=== PATIENT | male | born 1970 | race Caucasian/White ===

== ENCOUNTER → 2018-06-25 10:12 | Outpatient (CLI) | payer BC, SELFPAY | PROVIDERS: Family Provider Family Medicine; PCP Family Medicine; Referring Provider Chiropractor; Visit Provider Chiropractor | DX: M99.02 Segmental and somatic dysfunction of thoracic region (principal); M99.03 Segmental and somatic dysfunction of lumbar region; M99.01 Segmental and somatic dysfunction of cervical region | CPT/HCPCS: 72100 ==

== ENCOUNTER → 2019-08-02 20:56 | Outpatient (CLI) | payer BC, SELFPAY ==
[2019-05-06 11:13] VITALS: BMI 34.9
== END ==
PROVIDERS: Family Provider Internal Medicine; PCP Internal Medicine; Referring Provider Internal Medicine; Visit Provider Internal Medicine
DX: G47.33 Obstructive sleep apnea (adult) (pediatric) (principal)
CPT/HCPCS: 95811

== ENCOUNTER → 2019-09-03 15:12 | Outpatient (CLI) | payer BC, SELFPAY ==
[2019-05-06 11:13] VITALS: BMI 34.9
== END ==
PROVIDERS: Family Provider Internal Medicine; PCP Internal Medicine; Referring Provider Internal Medicine; Visit Provider Internal Medicine
DX: Z46.89 Encounter for fitting and adjustment of other specified devices (principal)

== ENCOUNTER → 2024-04-24 | Outpatient (CLI) | payer BC, SELFPAY ==
[2024-04-24 09:32] LABS: Absolute Lymphocyte Count 2.18 X10^3/uL (0.83-4.51); Absolute Neutrophil Count 4.3 X10^3/uL (2.0-7.7); Basophil# 0.05 X10^3/uL; Basophil% 0.7 % (0-1); Eosinophil# 0.08 X10^3/uL; Eosinophils% 1.1 % (0-5); Hematocrit 47.5 % (40-54); Hemoglobin 15.7 g/dL (13.0-16.5); Lymphocyte # 2.18 X10^3/ul (0.83-4.51); Mean Corp Hgb Conc 33.1 g/dL (32-36); Mean Corpuscular Hgb 30.5 pg (27.0-32.0); Mean Corpuscular Volume 92.2 fL (80-94); Mean Platelet Vol. 10.7 fl (6.2-12.0); Monocyte# 0.45 X10^3/uL; Monocyte% 6.4 % (0-10); NRBC Flagged by Analyzer 0 % (0-5); Neutrophil # 4.25 X10^3/uL (2.7-7.7); Neutrophil % 60.5 % (47-70); Platelet Count 185 K/mm3 (150-450); RBC Distribution Width SD 43.8 fl (35.1-43.9); Red Blood Count 5.15 M/mm3 (4.6-6.2)
[2024-04-24 10:23] LABS: Hemoglobin A1c 5.4 % (3.8-5.6)
[2024-04-24 10:36] LABS: ALB/GLOB Ratio 1.1 RATIO (0.9-2.4); AST(SGOT) 24 U/L (15-37); Alanine Aminotransfer ALT/SGPT 46 U/L (16-61); Alkaline Phosphatase 58 U/L (45-117); Anion Gap 6 (5-15); BUN 19 mg/dL (7-18); BUN/Creat Ratio 21.2 RATIO (10-20); Calcium,Total 9.4 mg/dL (8.5-10.1); Chloride 109 mmol/L (98-107); Cholesterol 193 mg/dL (200); EST Glomerular Filtration Rate 94 mL/min (>60); Est Glom Filt Rate - Afr Amer 113 mL/min (>60); Globulin 3.6 g/dL (2.2-4.2); Glucose 108 mg/dL (74-106); High Density Lipoprotein 36 mg/dL; PSA,Total - Annual Screen 0.37 ng/mL (0.00-4.00); Potassium 4.3 mmol/L (3.5-5.1); Protein, Total 7.6 g/dL (6.4-8.2); Sodium Level 141 mmol/L (136-145); Thyroid Stim Hormone (TSH) 2.53 uIU/mL (0.358-3.74); Triglycerides 146 mg/dL; Very Low Density Lipoprotein 29 mg/dL (5-40)
[2024-04-26 08:02] LABS: Vitamin D,25 Hydroxy 58.4 ng/mL
== END | disposition home or self-care (01) ==
LOC: LAB 08:21
PROVIDERS: PCP Internal Medicine; Referring Provider Family Medicine; Visit Provider Family Medicine
DX: Z00.00 Encounter for general adult medical examination without abnormal findings (principal); E66.9 Obesity, unspecified; Z13.220 Encounter for screening for lipoid disorders; Z13.1 Encounter for screening for diabetes mellitus; Z12.5 Encounter for screening for malignant neoplasm of prostate; Z98.890 Other specified postprocedural states
CPT/HCPCS: 36415; 80053; 80061; 82306; 83036; 84153; 84443; 85025; G0103

== ENCOUNTER → 2025-06-25 | Outpatient (CLI) | payer BC, SELFPAY ==
--- OUTSIDE RECORDS SUMMARY | 2025-06-25 08:48 | XMS RPT_ITS | CCD ---
Author Organization [facility] Care Team Providers Care Parts Representative Name Role Phone KIET CHIU Attending Unavailable KIET CHIU Primary Care Unavailable KIET CHIU Admitting Unavailable Kiet Venegas MD Primary Care Provider RED BASURTO Referring UnavailRED Castro Attending UnavailKiet Gross MD Primary Care Provider [phone] Kiet Venegas MD Primary Care Provider INGE DYSON Referring Unavailab le KIET VENEGAS Primary Care Unavailable ARTIE VELEZ Attending Unavailable ARTIE VELEZ Referring Unavailable KIET VENEGAS Primary Care Unavailable ARTIE VELEZ Attending Unavailable PICKENSALEXYS Wright Referring Unavailable TRACY, KIET Bailey Primary Care Unavailable SANTA CH Referring Unavailable ARTIE VELEZ Attending Unavailable TRACY, KIET Bailey Primary Care Unavailable ROSIE, ARTIE Attending Unavailable ALEXYS PICKENS Referring Unavailable KIET VENEGAS Primary Care Unavailable ARTIE VELEZ Attending Unavailable KIET VENEGAS Referring Unavailable TRACY, KIET Bailey Primary Care Unavailable TRACY, KIET Bailey Primary Care Unavailable ROSIE, ARTIE Attending Unavailable KIET VENEGAS Referring Unavailable TRACY, KIET Bailey Primary Care Unavailable ROSIE, ARTIE Attending Unavailable KIET VENEGAS Referring Unavailable SANTA CH Referring Unavailable ROSIE, ARTIE Attending Unavailable KIET VENEGAS Primary Care Unavailable ROSIE, ARTIE Referring Unavailable ROSIE, ARTIE Attending Unavailable TRACY, KIET Bailey Primary Care Unavailable ROSIE, ARTIE Referring Unavailable ROSIE, ARTIE Attending Unavailable TRACY, KIET Bailey Primary Care Unavailable ROSIE, ARTIE Referring Unavailable ROSIE, ARTIE Attending Unavailable TRACY, KIET Bailey Primary Care Unavailable TRACY, KIET Bailey Primary Care Unavailable KIET VENEGAS Attending Unavailable Unavailable Primary Care Provider UnavailSONIA Umana Attending Unavailable SONIA CHAN Referring Unavailable ADRIAN, LAO Referring Unavailable Huong Higginson Referring Unavailable Cullen iHggins Attending Unavailable Yessica Light Primary Care Unavailable Kiet Venegas MD Primary Care Provider Lynsey DOUBLING MACHINE OPERATOR.NURSING HOME SOCIAL WORKER, Janelle Unavailable Dylanbeverly DOUBLING MACHINE OPERATOR.NURSING HOME SOCIAL WORKER, Rita A Unavailable SELF Referring Unavailable KIET VENEGAS Primary Care Unavailable GOLDY ZAFAR Attending Unavailable GOLDY ZAFAR Referring Unavailable KIET VENEGAS Primary Care Unavailable Edudaliamer DOUBLING MACHINE OPERATOR-NURSING HOME SOCIAL WORKER, Margaret Unavailable 1( [phone] Santa Ch MD Unavailable Kiet Venegas MD Unavailable Allergies Allergy Classification Reported Allergen(s) Allergy Type Date of Onset Reaction(s) Facility (15 sources) Dust; Translations: [DUST] Propensity to adverse reactions 5 Intolerance [facility] Work Phone: (15 sources) Grass pollen; Translations: [GRASS POLLEN] Propensity to adverse reactions 5 Intolerance [facility] Work Phone: (15 sources) Mold Extract; Translations: [MOLD] Drug Allergy 5 Intolerance [facility] Work Phone: (15 sources) Pollen; Translations: [POLLEN] Propensity to adverse reactions 5 Intolerance [facility] Work Phone: (15 sources) Tree; Translations: [TREES] Propensity to adverse reactions 5 Intolerance [facility] Work Phone: (11 sources) animal dander [Other] Propensity to adverse reactions 5 Intolerance [facility] Work Phone: (1 source) OTHER; Translations: [OTHER] Propensity to adverse reactions (disorder) 5 [facility] (3 sources) Animal Dander; Translations: [ANIMAL DANDER] Drug Allergy 5 Intolerance [facility] (1 source) Environmental allergy Allergy to substance (disorder) 2 Pony Zero. Medications Current Medications Medication Drug Class(es) Dates Sig (Normalized) Sig (Original) [id number] 200 actuat albuterol 0.09 mg/actuat metered dose inhaler (2 sources) beta2-Adrenergic Agonist Start: 10-12-2024 End: 10-22-2024 take 2 puff(s) by inhalation every four hours as needed for wheezing albuterol HFA (PROVENTIL HFA, VENTOLIN HFA) 90 mcg/actuation inhaler Indications: Cough with fever , URI, acute Inhale 2 Puffs as instructed every 4 hours as needed for wheezing/shortnes s of breath for up to 10 days. 1 Each 10/12/2024 10/22/2024 Active Ascorbic Acid (13 sources) Vitamin C ascorbic acid (VITAMIN C ORAL) Take by mouth. Active ascorbic acid (V ITAMIN C ORAL) Take by mouth. 0 Active Comment on above: Take by mouth. azithromycin 250 mg oral tablet (1 source) Macrolide Antimicrobial Start: 10-12-19 End: 10-17-19 take 2 tablets by mouth once daily, then take 1 tablet by mouth once daily azithromycin (ZITHROMAX) 250 mg tablet Indications: Cough with fever , URI, acute Take 2 tablets by mouth once daily for 1 day, THEN 1 tablet once daily for 4 days. 6 tablet 10/12/2024 10/17/2024 Active benzonatate 100 mg oral capsule (1 source) Non-narcotic Antitussive Start: 10-12-19 End: 10-19-19 take 1-2 capsules by mouth three times daily as needed for cough benzonatate (TESSALON PERLES) 100 mg capsule Indications: Cough with fever , URI, acute Take 1-2 capsules by mouth three times a day as needed for cough for up to 7 days. 42 capsule 10/12/2024 10/19/2024 Active BIPAP (13 sources) BIPAP Active BIPAP brompheniramine maleate 0.4 mg/ml / dextromethorphan hydrobromide 2 mg/ml / pseudoephedrine hydrochloride 6 mg/ml oral solution (1 source) alpha-Adrenergic Agonist, Uncompetitive P-vkatpq-K-aspartate Receptor Antagonist, Sigma-1 Agonist Start: 10-12-2024 End: 10-19-2024 take 5 mL by mouth four times daily as needed Bjzejmlxruqbrxw-Vfhbfajrv-BK (BROMFED DM) 2-30-10 mg/5 mL syrup Indications: Cough with fever , URI, acute Take 5 mL by mouth four times a day as needed for up to 7 days. 118 mL 10/12/2024 10/19/2024 Active Cholecalciferol (14 sources) Vitamin D take 2 tablets by mouth once daily Vitamin D3 125 mcg (5,000 unit) tablet Take 2 tablet by mouth once a day active [facility] take 1 tablet by mouth once [place] cholecalciferol (VITAMIN D) 1,000 unit tab tablet Take 1,000 Units by mouth once daily. Active Comment on above: Take 1,000 Units by mouth once daily. diazePAM 5 mg oral tablet (1 source) Benzodiazepine Start: 06-08-2025 End: 06-09-2025 Valium 5 mg tablet Take 1 tablet by mouth single dose as directed bring medication with you on the day of your procedure, staff will instruct you when to take the tablet. Thank you active - Margaret Jeffries DOUBLING MACHINE OPERATOR-NURSING HOME SOCIAL WORKER, [address] [facility] [address] Radiculopathy lumbar region [facility] [place] ibuprofen 200 mg oral capsule (1 source) Nonsteroidal Anti-inflammatory Drug ibuprofen 200 mg capsule Take 2 capsule twice a day as needed for pain active [facility] Lactobacillus acidophilus (13 sources) Lactobacillus acidophilus (PROBIOTIC ORAL) Take by mouth. Active Lactobacillus ac idophilus (PROBIOTIC ORAL) Take by mouth. 0 Active Comment on above: Take by mouth. lidocaine hydrochloride 20 mg/ml mucous membrane topical solution (2 sources) Antiarrhythmic, Amide Local Anesthetic Start: lidocaine viscous (XYLOCAINE) 2 % solution TAKE 5 ML TWO TIMES DAILY NEEDED 08/10/2024 Active Magnesium (13 sources) take 1 tablet by mouth once daily Magnesium 250 mg tab Take 250 mg by mouth once daily. Active take 1 tablet by mouth once [place] Magnesium 250 mg tab Take 250 mg by mouth once daily. 0 Active Comment on above: Take 250 mg by mouth once daily. magnesium oxide 250 mg oral tablet (1 source) take 1 tablet by mouth once daily magnesium 250 mg (as magnesium oxide) tablet Take 1 tablet by mouth once a day active [facility] meloxicam 15 mg oral tablet (3 sources) Nonsteroidal Anti-inflammatory Drug Start: 10-02-19 25 meloxicam (MOBIC) 15 mg tablet 10/02/2024 Active predniSONE 10 mg oral tablet (1 source) Start: 10-12-19 25 predniSONE (DELTASONE) 10 mg tablet Indications: Cough with fever , URI, acute Take 6 tablets on day 1, take 5 tablets on day 2, take 4 tablets on day 3, take 3 tablets on day 4, take 2 tablets on day 5, take 1 tablet on day 6. 21 tablet 10/12/2024 Active Probiotic Acidophilus (lactobacillus acidophilus) capsule (1 source) take 1 capsule by mouth once daily Probiotic Acidophilus (lactobacillus acidophilus) capsule Take 1 capsule by mouth once a day active [facility] RA VITAMIN C/KRISTIE HIPS (ASCORBIC ACID) 1000 MG TABS (1 source) take 1 tablet by mouth once daily Vitamin C 1,000 mg tablet Take 1 tablet by mouth once a day active [facility] SEMAGLUTIDE-WEIGHT MANAGEMENT (1 source) Wegovy 1 mg/0.5 mL subcutaneous pen injector Inject 1 pen injector subcutaneously once a week active Julissa Mota LPN [facility] [place] MIKAELA'S WORT ORAL (13 sources) MIKAELA'S WORT ORAL Take by mouth. Active MIKAELA'S WORT ORAL Take by mouth. 0 Active Comment on above: Take by mouth. VITAMIN B-12 (CYANOCOBALAMIN) 1000 MCG TABS (1 source) take 1 tablet by mouth once daily cyanocobalamin (vit B-12) 1,000 mcg tablet Take 1 tablet by mouth once a day active [facility] ZEPBOUND 2.5 mg/0.5 mL pen injector (2 sources) Start: 10-02-2024 ZEPBOUND 2.5 mg/0.5 mL pen injector INJECT 0.5 ML UNDER SKIN WEEKLY 10/02/2024 Active Zinc (14 sources) take 1 tablet by mouth once daily zinc 50 mg tablet Take 1 tablet by mouth once a day active [facility] take 1 tablet by mouth once [place] Zinc 50 mg tab Take 50 mg by mouth once daily. Active take 1 tablet by mouth once [place] Zinc 50 mg tab Take 50 mg by mouth once daily. 0 Active Comment on above: Take 50 mg by mouth once daily. Completed/Discontinued Medications Medication Drug Class(es) Dates Sig (Normalized) Sig (Original) 2 ml midazolam 1 mg/ml injection (1 source) Benzodiazepine Start: 05-13-2024 End: 05-13-2024 IntraVENous, As needed, Starting on Barbie 05/13/24 at 1214, Anesthesia Intraprocedure sertraline 50 mg oral tablet (1 source) Serotonin Reuptake Inhibitor Start: 11-30-2021 End: 02-07-2022 take 1 tablet by mouth once daily sertraline (ZOLOFT) 50 mg tablet Indications: Anxiety with depression Take 1 tablet by mouth once daily. 30 tablet 2 11/30/2021 02/07/2022 Discontinued (Other) Comment on above: Take 1 tablet by mouth once daily. 1000 ml sodium chloride 9 mg/ml injection (3 sources) Start: 05-13-2024 End: 05-14-2024 take 50 mL intravenously every hour 50 mL/hr, IntraVENous, Continuous, Starting on Barbie 05/13/24 at 1000, Preprocedure Problems Active Problems Problem Classification Problem Date Documented Date Episodic/Chronic Disorders of lipid metabolism (13 sources) Mixed hyperlipidemia; Translations: [Mixed hyperlipidemia] Onset: 09-27-2019 09-27-2019 Chronic Fever of unknown origin (1 source) Fever, unspecified; Translations: [Cough with fever] Onset: 10-12-2024 Episodic Immunizations and screening for infectious disease (5 sources) Encounter for observation for suspected exposure to other biological agents ruled out; Translations: [Viral screening status] Onset: 09-07-2020 Episodic Osteoarthritis (18 sources) Arthritis of joint of left shoulder region; Translations: [Primary osteoarthritis, left shoulder] Onset: 10-03-2021 10-03-2021 Chronic Other congenital anomalies (4 sources) Congenital anomaly of spine; Translations: [Other congenital malformations of spine, not associated with scoliosis] Onset: 05-13-2024 05-13-2024 Chronic Other congenital anomalies (1 source) Other congenital malformations of spine, not associated with scoliosis; Translations: [Other congenital malformations of spine, not associated with scoliosis] Onset: 05-13-2024 Chronic Other congenital anomalies (1 source) Spinal stenosis of lumbar region; Translations: [Other congenital malformations of spine, not associated with scoliosis] Onset: 04-30-2022 04-30-2022 Chronic Other lower respiratory disease (2 sources) Cough with fever; Translations: [Cough with fever] 10-12-2024 Episodic Other nervous system disorders (1 source) Tremor; Translations: [Tremor, unspecified] Episodic Other non-traumatic joint disorders (13 sources) Loose body in joint of left shoulder region; Translations: [Loose body in left shoulder] Onset: 10-03-2021 10-03-2021 Chronic Other nutritional; endocrine; and metabolic disorders (13 sources) Obese class II; Translations: [Obesity, unspecified] Onset: 09-27-2019 09-27-2019 Chronic Other nutritional; endocrine; and metabolic disorders (1 source) Obesity, unspecified; Translations: [Obesity, unspecified] Onset: 05-26-2024 Chronic Other upper respiratory infections (2 sources) Acute upper respiratory infection; Translations: [Acute upper respiratory infection, unspecified] Onset: 10-12-2024 10-12-2024 Episodic Residual codes; unclassified (14 sources) Obstructive sleep apnea syndrome; Translations: [Obstructive sleep apnea (adult) (pediatric)] Onset: 02-07-2022 Chronic Spondylosis; intervertebral disc disorders; other back problems (2 sources) Lumbar spondylosis; Translations: [Spondylosis without myelopathy or radiculopathy, lumbar region] Onset: 02-06-2022 02-06-2022 Chronic Spondylosis; intervertebral disc disorders; other back problems (20 sources) Lumbar radiculopathy; Translations: [Radiculopathy, lumbar region] Onset: 09-27-2019 Resolved: 02-07-2022 Episodic Unclassified (1 source) Cough with fever; Translations: [Cough with fever] Onset: 10-12-2024 Past or Other Problems Problem Classification Problem Date Documented Da te Episodic/Chronic Contraceptive and procreative management (15 sources) Patient encounter status; Translations: [Encounter for sterilization] Onset: 08-04-2006 08-04-2006 Episodic Gastrointestinal hemorrhage (2 sources) Hematochezia; Translations: [Melena] Onset: 12-16-2008 Resolved: 02-07-2022 02-07-2022 Episodic Joint disorders and dislocations; trauma-related (13 sources) Tear of medial meniscus of knee; Translations: [Tear of medial cartilage or meniscus of knee, current] Onset: 01-27-2013 01-27-2013 Episodic Nonspecific chest pain (1 source) Other chest pain; Translations: [Other chest pain] Onset: 01-30-2022 Episodic Other acquired deformities (1 source) Lumbar spondylolisthesis; Translations: [Spondylolisthesis, lumbar region] Onset: 04-30-2022 04-30-2022 Episodic Other bone disease and musculoskeletal deformities (18 sources) Chondromalacia of left shoulder; Translations: [Chondromalacia, left shoulder] Onset: 10-03-2021 10-03-2021 Episodic Other connective tissue disease (13 sources) Impingement syndrome of left shoulder region; Translations: [Impingement syndrome of left shoulder] Onset: 10-03-2021 10-03-2021 Episodic Other connective tissue disease (1 source) Trochanteric bursitis; Translations: [Trochanteric bursitis, right hip] Onset: 02-06-2022 02-06-2022 Episodic Other non-traumatic joint disorders (2 sources) Pain in lower limb; Translations: [Pain in unspecified knee] Onset: 01-27-2013 Resolved: 02-07-2022 02-07-2022 Episodic Other skin disorders (2 sources) Sebaceous cyst of skin; Translations: [Sebaceous cyst] Onset: 08-26-2005 Resolved: 02-07-2022 02-07-2022 Episodic Skin and subcutaneous tissue infections (4 sources) Cellulitis and abscess of trunk; Translations: [Cellulitis of trunk, unspecified] Onset: 04-07-2008 Resolved: 02-07-2022 02-07-2022 Episodic Sprains and strains (18 sources) Injury of superior glenoid labrum of shoulder joint; Translations: [Superior glenoid labrum lesion of left shoulder, initial encounter] Onset: 12-23-2006 Resolved: 02-07-2022 10-03-2021 Episodic Results Test Name Value Interpretation Reference Range Facility Relevant diagnostic tests/la boratory data Narrativeon 06-08-2025 Fall risk assessment no FRAN [employer] Work Phone: MEDS REVIEW Done [employer] Work Phone: MEDS REVIEWD Medications reviewed with changes [employer] Work Phone: CNOVon 10-12-2024 CNOV Office Visit ([facility] ) GLADYS ALBA ([id number]) 1970 M Date Time Provider Department 10/12/24 6:30 PM GOLDY ZAFAR [facility] During your visit today, we recorded the following information about you: Temperature Pulse Respiration Blood pressure 98.9 degrees 84/minute 19/minute 141/85 Weight 142.4 kg Goldy Zafar, DOUBLING MACHINE OPERATOR.NURSING HOME SOCIAL WORKER 10/12/2024 7:17 PM Addendum Gladys Alba is a 54 year old male who presents with Flu Like Symptoms (Very bad cough chest congestion wheezing - Entered by patient), Cough, Chest Congestion, Wheezing (X4days all symptoms/), and Short Of Breath Started Friday worsened over the weekend. Including , fevers, chills, congestion and cough. Feels winded with minimal exertion. Taking mucinex DM and Ibuprofen Flu Like Symptoms Associated symptoms include chills, congestion, coughing, a fever, headaches, myalgias and a sore throat. Cough Associated symptoms include chills, headaches, sore throat, myalgias, shortness of breath and wheezing. Wheezing Associated symptoms include chills, coughing, a fever, headaches, shortness of breath and a sore throat. Short Of Breath Associated symptoms include chills, congestion, coughing, a fever, headaches, myalgias and a sore throat. 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 cholecalciferol (VITAMIN D) 1,000 unit tab tablet Take 1,000 Units by mouth once daily. Magnesium 250 mg tab Take 250 mg by mouth once daily. MIKAELA'S WORT ORAL Take by mouth. ascorbic acid (VITAMIN C ORAL) Take by mouth. Lactobacillus acidophilus (PROBIOTIC ORAL) Take by mouth. BIPAP No current facility-administered medications for this visit. Social History Tobacco Use Smoking status: Never Smokeless tobacco: Never Vaping Use Vaping status: Never Used Substance Use Topics Alcohol use: Yes Comment: occ Drug use: No Alcohol Use: Yes (occ) Tobacco Use: Never FAMILY HISTORY Problem Relation Age of Onset Hypertension Mother Hyperlipidemia Mother Diabetes Father Heart Father CHF Cancer Father Bladder Colon Cancer Maternal Grandmother Colon Cancer Maternal Uncle No Known Problems Half-sister No Known Problems Half-brother No Known Problems Half-brother No Known Problems Daughter No Known Problems Daughter No Known Problems Son No Known Problems Son No Known Problems Son Review of Systems Constitutional: Positive for chills, fever and malaise/fatigue. HENT: Positive for congestion and sore throat. Respiratory: Positive for cough, chest tightness, shortness of breath and wheezing. Cardiovascular: Negative. Gastrointestinal: Negative. Musculoskeletal: Positive for myalgias. Neurological: Positive for headaches. All other systems reviewed and are negative. BP 141/85 Pulse 84 Temp (Src) 98.9 (Temporal) Resp 19 Wt 314 lb (142.4kg) SpO2 97% Physical Exam Vitals and nursing note reviewed. Constitutional: Appearance: Normal appearance. He is not ill-appearing. HENT: Right Ear: Tympanic membrane is retracted. Left Ear: Tympanic membrane is retracted. Nose: Congestion and rhinorrhea present. Mouth/Throat: Mouth: Mucous membranes are moist. Pharynx: Oropharynx is clear. Posterior oropharyngeal erythema present. No oropharyngeal exudate. Eyes: Extraocular Movements: Extraocular movements intact. Conjunctiva/sclera: Conjunctivae normal. Pupils: Pupils are equal, round, and reactive to light. Cardiovascular: Rate and Rhythm: Normal rate and regular rhythm. Pulmonary: Effort: Pulmonary effort is normal. No respiratory distress. Breath sounds: No stridor. Rhonchi present. No wheezing or rales. Chest: Chest wall: No tenderness. Abdominal: General: Abdomen is flat. Musculoskeletal: General: Normal range of motion. Lymphadenopathy: Cervical: Cervical adenopathy present. Skin: General: Skin is warm and dry. Neurological: General: No focal deficit present. Mental Status: He is alert and oriented to person, place, and time. ASSESSMENT/PLAN (more content not included)... Normal [facility] XR CHEST 2V FRONTAL/LATon XR CHEST 2V FRONTAL/LAT * * *Final Report* * * DATE OF EXAM: Oct 12 2024 7:24PM [id number] [id number] - XR CHEST 2V FRONTAL/LAT / PROCEDURE REASON: multiple diagnoses * * * * Physician Interpretation * * * * EXAMINATION: CHEST RADIOGRAPH (2 VIEW FRONTAL and LATERAL) CLINICAL HISTORY: Cough with fever Cough with fever MQ: [id number] EXAM DATE/TIME: 10/12/2024 7:24 PM COMPARISON: 12/04/2021 RESULT: Lines, tubes, and devices: None. Lungs and pleura: The costophrenic angles are clear. No acute infiltrates or congestion is seen. Cardiomediastinal silhouette: The heart and mediastinum show no acute abnormalities. Bones and soft tissues: There are no acute osseous abnormalities. IMPRESSION: No acute abnormalities. Linux Devops Engineer: URIEL Transcribe Date/Time: Oct 13 2024 9:48A Dictated by : KIET ASHLEY MD This examination was interpreted and the report reviewed and electronically signed by: KIET ASHLEY MD on Oct 13 2024 9:48AM EST [id number] N Normal [facility] MR Lumbar spine WO contrasto n 08-26-2024 1. Multilevel degenerative changes, see level by level detail above. Edematous marrow endplate changes as described. Multilevel foraminal stenosis. Congenital spinal canal narrowing without superimposed spinal stenosis. Small disc protrusion at L5-S1, left paramedian, superimposed on disc bulge which could be contacting the left S1 nerve root before it exits the thecal sac. Report Dictated on Electronically Signed By: Gladys Romero MD Electronically Signed Date/Time: 05/17/2024 6:43 PM [employer] [facility] Patient Name: GLADYS ALBA : 1970 Exam Date/Time: 05/13/2024 12:36 Procedure: MR LUMBAR SPINE WO CONTRAST Ordering Provider: CHAN MADELINE Reason For Exam: Q76.49 MRI OF THE LUMBAR SPINE WITHOUT GADOLINIUM CLINICAL INDICATION: Q76.49 TECHNIQUE: Routine MRI of the lumbar spine without gadolinium. COMPARISON: None FINDINGS: Vertebral bodies are normal in height and alignment. Large lower endplate Schmorl's node at L3. Scattered smaller Schmorl's nodes at L4 and L5. Some edematous marrow noted around L5 lower endplate Schmorl's node. Some edematous endplate changes at L3-L4. Normal appearance of the conus medullaris. Spinal canal is narrow on a congenital basis. Visualized portions of the abdominal aorta are nonaneurysmal. L1-L2: Mild facet arthrosis and very mild disc bulge. No foraminal stenosis. No superimposed spinal stenosis. L2-L3: Mild facet arthrosis. Mild endplate spurring and mild disc bulge. No foraminal stenosis. No superimposed spinal stenosis. L3-L4: Mild facet arthrosis. Six moderate disc bulge with some endplate spurring. No significant foraminal stenosis. No superimposed spinal stenosis. L4-L5: Mild disc bulge and facet arthritic changes. Mild foraminal narrowing bilaterally, worse on the left. No superimposed spinal stenosis. L5-S1: Disc space narrowing and disc desiccation. Moderate facet arthrosis. Moderate foraminal narrowing on the left. Mild foraminal narrowing on the right. No superimposed spinal stenosis. Mild disc bulge with small superimposed left paramedian focal disc protrusion which could be contacting the left S1 nerve root just before it exits the thecal sac. [facility] Gladys Romero MD - 05/17/2024 [facility] 1970 [id number] Exam Date/Time: 05/13/2024 12:36 Procedure: MR LUMBAR SPINE WO CONTRAST Ordering Provider: CHAN MADELINE Reason For Exam: Q76.49 MRI OF THE LUMBAR SPINE WITHOUT GADOLINIUM CLINICAL INDICATION: Q76.49 TECHNIQUE: Routine MRI of the lumbar spine without gadolinium. COMPARISON: None FINDINGS: Vertebral bodies are normal in height and alignment. Large lower endplate Schmorl's node at L3. Scattered smaller Schmorl's nodes at L4 and L5. Some edematous marrow noted around L5 lower endplate Schmorl's node. Some edematous endplate changes at L3-L4. Normal appearance of the conus medullaris. Spinal canal is narrow on a congenital basis. Visualized portions of the abdominal aorta are nonaneurysmal. L1-L2: Mild facet arthrosis and very mild disc bulge. No foraminal stenosis. No superimposed spinal stenosis. L2-L3: Mild facet arthrosis. Mild endplate spurring and mild disc bulge. No foraminal stenosis. No superimposed spinal stenosis. L3-L4: Mild facet arthrosis. Six moderate disc bulge with some endplate spurring. No significant foraminal stenosis. No superimposed spinal stenosis. L4-L5: Mild disc bulge and facet arthritic changes. Mild foraminal narrowing bilaterally, worse on the left. No superimposed spinal stenosis. L5-S1: Disc space narrowing and disc desiccation. Moderate facet arthrosis. Moderate foraminal narrowing on the left. Mild foraminal narrowing on the right. No superimposed spinal stenosis. Mild disc bulge with small superimposed left paramedian focal disc protrusion which could be contacting the left S1 nerve root just before it exits the thecal sac. IMPRESSION: 1. Multilevel degenerative changes, see level by level detail above. Edematous marrow endplate changes as described. Multilevel foraminal stenosis. Congenital spinal canal narrowing without superimposed spinal stenosis. Small disc protrusion at L5-S1, left paramedian, superimposed on disc bulge which could be contacting the left S1 nerve root before it exits the thecal sac. Report Dictated on Electronically Signed By: Gladys Romero MD Electronically Signed Date/Time: 05/17/2024 6:43 PM EDT [facility] MR Lumbar spine WO contrastO rdered By: Gladys Romero on 05-17-2024 [facility] Work Phone: ECG 12-LEADon 05-16-2024 ECG 12-LEAD IMPRESSION: Sinus bradycardia Electronically Signed On 05-16-2024 17:05:23 EDT by Nat Salguero [facility] BASIC METABOLIC PANELon 04-23 Anion gap [Moles/Vol] 9 mmol/L Normal 3-13 [facility] Comment on above: Performed By: #### L AB15 #### Therapy Technician: ANUSHA JERNIGAN ([id number]) [facility]) [address] [place] [address] Calcium [Mass/Vol] 9.6 mg/dL Normal 8.4-10.4 [facility] Comment on above: Performed By: #### L AB15 #### Therapy Technician: ANUSHA JERNIGAN ([id number]) [facility]) [address] [place] [address] Chloride [Moles/Vol] 104 mmol/L Normal 98-107 [facility] Comment on above: Performed By: #### L AB15 #### Therapy Technician: ANUSHA JERNIGAN ([id number]) [facility]) [address] [place] [address] CO2 [Moles/Vol] 24 mmol/L Normal 22-30 [facility] Comment on above: Performed By: #### L AB15 #### Therapy Technician: ANUSHA JERNIGAN ([phone]) [facility]) [address] [place] [address] Creatinine [Mass/Vol] 0.80 mg/dL Normal 0.66-1.25 [facility] Comment on above: Performed By: #### L AB15 #### Therapy Technician: ANUSHA JERNIGAN ([id number]) [facility]) [address] [place] [address] GLOMERULAR FILTRATION RATE ML/MIN/1.73 SQ M.PREDICTED >90.0 Normal >60.0 [facility] Comment on above: Result Comment: Calc ulation based on the Chronic Kidney Disease Epidemiology Collaboration (CKD-EPI) equation refit without adjustment for race ORDER COMMENTS: Slightly Hemolyzed. Interpret POTASSIUM with caution. Performed By: #### L AB15 #### Therapy Technician: ANUSHA JERNIGAN ([id number]) [facility] [address] [place] [address] Glucose [Mass/Vol] 105 mg/dL High 70-100 [facility] Comment on above: Performed By: #### L AB15 #### Therapy Technician: ANUSHA JERNIGAN ([phone]) [facility]) [address] [place] [address] Potassium [Moles/Vol] 4.8 mmol/L Normal 3.5-5.1 [facility] Comment on above: Performed By: #### L AB15 #### Therapy Technician: ANUSHA JERNIGAN ([id number]) [facility] ([facility]) [address] [place] [address] Sodium [Moles/Vol] 138 mmol/L Normal 135-145 [facility] Comment on above: Performed By: #### L AB15 #### Therapy Technician: ANUSHA JERNIGAN ([id number]) [facility]) [address] [place] [address] Urea nitrogen [Mass/Vol] 19 mg/dL Normal 9-20 [facility] Comment on above: Performed By: #### L AB15 #### Therapy Technician: ANUSHA JERNIGAN ([id number]) [facility]) [address] [place] [address] Basic metabolic 1998 panelon 05-13-2024 Anion gap [Moles/Vol] 9 mmol/L 3 - 13 mmol/L [facility] Calcium [Mass/Vol] 9.6 mg/dL 8.4 - 10. 4 mg/dL [facility] Chloride [Moles/Vol] 104 mmol/L 98 - 10 7 mmol/L [facility] CO2 [Moles/Vol] 24 mmol/L 22 - 30 mmol/L [facility] Creatinine [Mass/Vol] 0.80 mg/dL 0.66 - 1.25 mg/dL [facility] GFR/1.73 sq M.predicted (S/P/Bld) [Vol rate/Area] - PINF [facility] Comment on above: Calculation based on the Chronic Kidney Disease Epidemiology Collaboration (CKD-EPI) equation refit without adjustment for race Glucose [Mass/Vol] 105 mg/dL High 70 - 100 mg/dL [facility] Interpretation and review of laboratory results Abnormal [facility] Potassium [Moles/Vol] 4.8 mmol/L 3.5 - 5.1 mmol/L [facility] Sodium [Moles/Vol] 138 mmol/L 135 - 145 mmol/L [facility] Urea nitrogen [Mass/Vol] 19 mg/dL 9 - 20 mg/dL [facility] Slightly Hemolyzed. Interpret POTASSIUM with caution. [facility] MR Lumbar spine WO contrasto n 05-13-2024 Radiology Study observation (narrative) [facility] Nursing Noteon 05-13-2024 Nursing Note Patient ambulated to bathroom and voided. Tolerated well. Discharge instructions reviewed no further questions at this time. Normal [facility] Nursing Note Patient's at bedside. Normal [facility] 36on 05-04-2024 36 Pt's Linsey called saying the patient has been called for jury duty the same day at his sedated MRI, which is 05/13/2024. She state they were told he needs documentation that this complex test is order & scheduled. Pt's will also going to be calling your office requesting this. The phone number for medical records for [facility] is [phone] if you need any additional information Thank you Normal [facility] Vitamin D,25 Hydroxyon 04-26 Vitamin D 25-OH 58.4 ng/mL Normal [facility] Comment on above: Order Comment: Order Date: 04/22/24 Order Info: [id number] - VITD25 Result Comment: Alexandra min D 25(OH) Status Range Deficiency <20 ng/mL (50nmol/L) Insufficiency 20 - 30 ng/mL (50 - 75 nmol/L) Sufficiency 30 - 100 ng/mL (75 - 250 nmol/L) Toxicity >100 ng/mL (>250 nmol/L) Performed By: #### L 500.4050, L500.4100, L501.9520, L506.1000, L501.9910, L501.9985, L100.0100 #### [facility] [address] [place], [address] CBC W/Diff, Automatedon 08-0 3-4 Absolute Lymph 2.18 X10 3/uL Normal 0.83-4.51 [facility] Comment on above: Order Comment: Order Date: 04/22/24 Order Info: [id number] - CBCD Performed By: #### L 500.4050, L500.4100, L501.9520, L506.1000, L501.9910, L501.9985, L100.0100 #### [facility] [address] [place], [address] Absolute Neut 4.3 X10 3/uL Normal 2.0-7.7 [facility] Comment on above: Order Comment: Order Date: 04/22/24 Order Info: [id number] - CBCD Performed By: #### L 500.4050, L500.4100, L501.9520, L506.1000, L501.9910, L501.9985, L100.0100 #### [facility] [address] [place], [address] Basophils/100 WBC (Bld) 0.7 % Normal 0-1 [facility] Comment on above: Order Comment: Order Date: 04/22/24 Order Info: 0184-1 - CBCD Performed By: #### L 500.4050, L500.4100, L501.9520, L506.1000, L501.9910, L501.9985, L100.0100 #### [facility] [address] [place], [address] Eosinophils/100 WBC (Bld) 1.1 % Normal 0-5 [facility] Comment on above: Order Comment: Order Date: 04/22/24 Order Info: 0184-1 - CBCD Performed By: #### L 500.4050, L500.4100, L501.9520, L506.1000, L501.9910, L501.9985, L100.0100 #### [facility] [address] [place], [address] Erythrocyte distribution width (RBC) [Ratio] 13.0 % Normal 11.6-14.6 [facility] Comment on above: Order Comment: Order Date: 04/22/24 Order Info: 0184-1 - CBCD Performed By: #### L 500.4050, L500.4100, L501.9520, L506.1000, L501.9910, L501.9985, L100.0100 #### [facility] [address], [address] Hematocrit (Bld) [Volume fraction] 47.5 % Normal 40-54 [facility] Comment on above: Order Comment: Order Date: 04/22/24 Order Info: 0184-1 - CBCD Performed By: #### L 500.4050, L500.4100, L501.9520, L506.1000, L501.9910, L501.9985, L100.0100 #### [facility] [address] [place], [address] Hemoglobin (Bld) [Mass/Vol] 15.7 g/dL Normal 13.0-16.5 [facility] Comment on above: Order Comment: Order Date: 04/22/24 Order Info: 0184-1 - CBCD Performed By: #### L 500.4050, L500.4100, L501.9520, L506.1000, L501.9910, L501.9985, L100.0100 #### [facility] [address] [place], [place], [id number] IG% 0.300 Normal 0.0-0.9 [facility] Comment on above: Order Comment: Order Date: 04/22/24 Order Info: 0184-1 - CBCD Result Comment: IG% - Immature Granulocytes (promyelocytes, myelocytes and metamyelocytes) > 1% indicates that a LEFT SHIFT is Present. Performed By: #### L 500.4050, L500.4100, L501.9520, L506.1000, L501.9910, L501.9985, L100.0100 #### [facility] [address] [place], [address] Lymphocytes/100 WBC (Bld) 31.0 % Normal 19-41 [facility] Comment on above: Order Comment: Order Date: 04/22/24 Order Info: 0184-1 - CBCD Performed By: #### L 500.4050, L500.4100, L501.9520, L506.1000, L501.9910, L501.9985, L100.0100 #### [facility] [address] [facility] [place], [place], [id number] MCH (RBC) [Entitic mass] 30.5 pg Normal 27.0-32.0 [facility] Comment on above: Order Comment: Order Date: 04/22/24 Order Info: 0184-1 - CBCD Performed By: #### L 500.4050, L500.4100, L501.9520, L506.1000, L501.9910, L501.9985, L100.0100 #### [facility] [address] [place], [address] MCHC (RBC) [Mass/Vol] 33.1 g/dL Normal 32-36 [facility] Comment on above: Order Comment: Order Date: 04/22/24 Order Info: 0184-1 - CBCD Performed By: #### L 500.4050, L500.4100, L501.9520, L506.1000, L501.9910, L501.9985, L100.0100 #### [facility] [address] [place], [address] MCV (RBC) [Entitic vol] 92.2 fL Normal 80-94 [facility] Comment on above: Order Comment: Order Date: 04/22/24 Order Info: 0184-1 - CBCD Performed By: #### L 500.4050, L500.4100, L501.9520, L506.1000, L501.9910, L501.9985, L100.0100 #### [facility] [address] [place], [address] Monocytes/100 WBC (Bld) 6.4 % Normal 0-10 [facility] Comment on above: Order Comment: Order Date: 04/22/24 Order Info: 0184- - CBCD Performed By: #### L 500.4050, L500.4100, L501.9520, L506.1000, L501.9910, L501.9985, L100.0100 #### [facility] [address], [address] Neutrophils/100 WBC (Bld) 60.5 % Normal 47-70 [facility] Comment on above: Order Comment: Order Date: 04/22/24 Order Info: 0184-1 - CBCD Performed By: #### L 500.4050, L500.4100, L501.9520, L506.1000, L501.9910, L501.9985, L100.0100 #### [facility] [address] [place], [address] Nucleated RBC (Bld) [#/Vol] 0 10*3/uL Normal 0-5 [facility] Comment on above: Order Comment: Order Date: 04/22/24 Order Info: 0184-1 - CBCD Performed By: #### L 500.4050, L500.4100, L501.9520, L506.1000, L501.9910, L501.9985, L100.0100 #### [facility] [address] [place], [address] Platelet mean volume (Bld) [Entitic vol] 10.7 fL Normal 6.2-12.0 [facility] Comment on above: Order Comment: Order Date: 04/22/24 Order Info: 0184-1 - CBCD Performed By: #### L 500.4050, L500.4100, L501.9520, L506.1000, L501.9910, L501.9985, L100.0100 #### [facility] [address] [place], [address] Platelets (Bld) [#/Vol] 185 10*3/uL Normal 150-450 [facility] Comment on above: Order Comment: Order Date: 04/22/24 Order Info: 0184-1 - CBCD Performed By: #### L 500.4050, L500.4100, L501.9520, L506.1000, L501.9910, L501.9985, L100.0100 #### [facility] [address] [place], [address] RBC (Bld) [#/Vol] 5.15 10*6/uL Normal 4.6-6.[address] [facility] Comment on above: Order Comment: Order Date: 04/22/24 Order Info: 0184-1 - CBCD Performed By: #### L 500.4050, L500.4100, L501.9520, L506.1000, L501.9910, L501.9985, L100.0100 #### [facility] [address] [place], [address] RDW SD 43.8 fl Normal 35.1-43.9 [facility] Comment on above: Order Comment: Order Date: 04/22/24 Order Info: 0184-1 - CBCD Performed By: #### L 500.4050, L500.4100, L501.9520, L506.1000, L501.9910, L501.9985, L100.0100 #### [facility] [address] [place], [place], [id number] WBC (Bld) [#/Vol] 7.0 10*3/uL Normal 4.4-11.0 [facility] Comment on above: Order Comment: Order Date: 04/22/24 Order Info: 0184-1 - CBCD Performed By: #### L 500.4050, L500.4100, L501.9520, L506.1000, L501.9910, L501.9985, L100.0100 #### [facility] [address] [place], [place], [id number] Comprehensive Metabolic Prof ilon 04-24-2024 Albumin [Mass/Vol] 4.0 g/dL Normal 3.2-5.0 [facility] Comment on above: Order Comment: Order Date: 04/22/24 Order Info: 0786-1 - CMP Order Info: [id number] - LIPID Order Info: [id number] - TSH Order Info: 2857-1 - PSA Performed By: #### L 500.4050, L500.4100, L501.9520, L506.1000, L501.9910, L501.9985, L100.0100 #### [facility] [address] [place], [place], [address] Albumin/Globulin [Mass ratio] 1.1 {ratio} Normal 0.9-2.4 [facility] Comment on above: Order Comment: Order Date: 04/22/24 Order Info: [id number] - CMP Order Info: [id number] - LIPID Order Info: [id number] - TSH Order Info: 2857-1 - PSA Performed By: #### L 500.4050, L500.4100, L501.9520, L506.1000, L501.9910, L501.9985, L100.0100 #### [facility] [address] [place], [address] ALK P 58 U/L Normal 45-117 [facility] Comment on above: Order Comment: Order Date: 04/22/24 Order Info: 07-1 - CMP Order Info: [id number] - LIPID Order Info: [id number] - TSH Order Info: 285-1 - PSA Performed By: #### L 500.4050, L500.4100, L501.9520, L506.1000, L501.9910, L501.9985, L100.0100 #### [facility] [address] [place], [address] ALT [Catalytic activity/Vol] 46 U/L Normal 16-61 [facility] Comment on above: Order Comment: Order Date: 04/22/24 Order Info: 785- - CMP Order Info: - LIPID Order Info: 3 - TSH Order Info: 2856-1 - PSA Performed By: #### L 500.4050, L500.4100, L501.9520, L506.1000, L501.9910, L501.9985, L100.0100 #### [facility] [address] [place], [address] AST [Catalytic activity/Vol] 24 U/L Normal 15-37 [facility] Comment on above: Order Comment: Order Date: 04/22/24 Order Info: 0786-1 - CMP Order Info: [id number] - LIPID Order Info: 3 - TSH Order Info: 2857-1 - PSA Performed By: #### L 500.4050, L500.4100, L501.9520, L506.1000, L501.9910, L501.9985, L100.0100 #### [facility] [address] [place], [address] Bilirubin [Mass/Vol] 0.50 mg/dL Normal 0.20-1.00 [facility] Comment on above: Order Comment: Order Date: 04/22/24 Order Info: 0786-1 - CMP Order Info: [id number] - LIPID Order Info: [id number] - TSH Order Info: 2856-09 - PSA Result Comment: For patients on eltrombopag therapy, use of Dimension Flanagan TBIL is not recommended. Performed By: #### L 500.4050, L500.4100, L501.9520, L506.1000, L501.9910, L501.9985, L100.0100 #### [facility] [address] [place], [address] BUN/CRE 21.2 RATIO High 10-20 [facility] Comment on above: Order Comment: Order Date: 04/22/24 Order Info: 86-1 - CMP Order Info: - LIPID Order Info: [id number] - TSH Order Info: [id number] - PSA Performed By: #### L 500.4050, L500.4100, L501.9520, L506.1000, L501.9910, L501.9985, L100.0100 #### [facility] [address] [place], [address] CA,Total 9.4 mg/dL Normal 8.5-10.1 [facility] Comment on above: Order Comment: Order Date: 04/22/24 Order Info: 785-09 - CMP Order Info: - LIPID Order Info: [id number] - TSH Order Info: [id number] - PSA Performed By: #### L 500.4050, L500.4100, L501.9520, L506.1000, L501.9910, L501.9985, L100.0100 #### [facility] [address] [place], [address] Chloride [Moles/Vol] 109 mmol/L High 98-107 [facility] Comment on above: Order Comment: Order Date: 04/22/24 Order Info: 86-1 - CMP Order Info: [id number] - LIPID Order Info: [id number] - TSH Order Info: 2856-09 - PSA Performed By: #### L 500.4050, L500.4100, L501.9520, L506.1000, L501.9910, L501.9985, L100.0100 #### [facility] [address] [place], [address] CO2 [Moles/Vol] 26.0 mmol/L Normal 21.0-32.0 [facility] Comment on above: Order Comment: Order Date: 04/22/24 Order Info: 785- - CMP Order Info: [id number] - LIPID Order Info: 3 - TSH Order Info: [id number] - PSA Performed By: #### L 500.4050, L500.4100, L501.9520, L506.1000, L501.9910, L501.9985, L100.0100 #### [facility] [address] [place], [address] Creatinine [Mass/Vol] 0.90 mg/dL Normal 0.70-1.30 [facility] Comment on above: Order Comment: Order Date: 04/22/24 Order Info: 785-09 - CMP Order Info: - LIPID Order Info: [id number] - TSH Order Info: [id number] - PSA Result Comment: The validity of the calculated GFR GFRAA in patients over 70 years has not been determined. Clinical correlation is essential. Performed By: #### L 500.4050, L500.4100, L501.9520, L506.1000, L501.9910, L501.9985, L100.0100 #### [facility] [address] [place], [address] EST GFR - AA 113 mL/min Normal >60 [facility] Comment on above: Order Comment: Order Date: 04/22/24 Order Info: 785-09 - CMP Order Info: [id number] - LIPID Order Info: 3 - TSH Order Info: 2857 - PSA Result Comment: Afri can Banglades[place] GFR Calc Performed By: #### L 500.4050, L500.4100, L501.9520, L506.1000, L501.9910, L501.9985, L100.0100 #### [facility] [address] [place], [place], [id number] GAP 6 Normal 5-15 [facility] Comment on above: Order Comment: Order Date: 04/22/24 Order Info: 785-09 - CMP Order Info: - LIPID Order Info: [id number] - TSH Order Info: [id number] - PSA Performed By: #### L 500.4050, L500.4100, L501.9520, L506.1000, L501.9910, L501.9985, L100.0100 #### [facility] [address] [place], [place], [address] GFR/1.73 sq M.predicted among non-blacks MDRD (S/P/Bld) [Vol rate/Area] 94 mL/min/{1.73_m2} Normal >60 [facility] Comment on above: Order Comment: Order Date: 04/22/24 Order Info: 785-09 - CMP Order Info: - LIPID Order Info: [id number] - TSH Order Info: [id number] - PSA Result Comment: Non- GFR Calc Performed By: #### L 500.4050, L500.4100, L501.9520, L506.1000, L501.9910, L501.9985, L100.0100 #### [facility] [address] [place], [place], [address] Globulin (S) [Mass/Vol] 3.6 g/dL Normal 2.2-4.2 [facility] Comment on above: Order Comment: Order Date: 04/22/24 Order Info: 785-09 - CMP Order Info: - LIPID Order Info: [id number] - TSH Order Info: [id number] - PSA Performed By: #### L 500.4050, L500.4100, L501.9520, L506.1000, L501.9910, L501.9985, L100.0100 #### [facility] [address] [place], [address] Glucose [Mass/Vol] 108 mg/dL High 74-106 [facility] Comment on above: Order Comment: Order Date: 04/22/24 Order Info: 785-1 - CMP Order Info: [id number] - LIPID Order Info: [id number] - TSH Order Info: [id number] - PSA Result Comment: Fast ing Glucose result from 100 to 125 mg/dL suggests IMPAIRED HOMEOSTASIS per A.D.A. criteria. Performed By: #### L 500.4050, L500.4100, L501.9520, L506.1000, L501.9910, L501.9985, L100.0100 #### [facility] [address] [place], [address] Potassium [Moles/Vol] 4.3 mmol/L Normal 3.5-5.1 [facility] Comment on above: Order Comment: Order Date: 04/22/24 Order Info: 785- - CMP Order Info: - LIPID Order Info: [id number] - TSH Order Info: [id number] - PSA Performed By: #### L 500.4050, L500.4100, L501.9520, L506.1000, L501.9910, L501.9985, L100.0100 #### [facility] [address] [place], [address] Sodium [Moles/Vol] 141 mmol/L Normal 136-145 [facility] Comment on above: Order Comment: Order Date: 04/22/24 Order Info: 785-09 - CMP Order Info: - LIPID Order Info: [id number] - TSH Order Info: [id number] - PSA Performed By: #### L 500.4050, L500.4100, L501.9520, L506.1000, L501.9910, L501.9985, L100.0100 #### [facility] [address] [place], [address] T PROT 7.6 g/dL Normal 6.4-8.2 [facility] Comment on above: Order Comment: Order Date: 04/22/24 Order Info: 0786-1 - CMP Order Info: [id number] - LIPID Order Info: 6-3 - TSH Order Info: 2857-1 - PSA Performed By: #### L 500.4050, L500.4100, L501.9520, L506.1000, L501.9910, L501.9985, L100.0100 #### [facility] [address] [place], [address] Urea nitrogen [Mass/Vol] 19 mg/dL High 7-18 [facility] Comment on above: Order Comment: Order Date: 04/22/24 Order Info: 0786-1 - CMP Order Info: [id number] - LIPID Order Info: [id number] - TSH Order Info: [id number] - PSA Performed By: #### L 500.4050, L500.4100, L501.9520, L506.1000, L501.9910, L501.9985, L100.0100 #### [facility] [address] [place], [address] Hemoglobin A1con 04-24-2024 HbA1c (Bld) [Mass fraction] 5.4 % Normal 3.8-5.6 [facility] Comment on above: Order Comment: Order Date: 04/22/24 Order Info: [id number] - A1C Result Comment: Norm al < 5.7 % Prediabetic 5.7 - 6.4 % Diabetic >or= 6.5 % Please note range changes. Performed By: #### L 500.4050, L500.4100, L501.9520, L506.1000, L501.9910, L501.9985, L100.0100 #### [facility] [address] [place], [address] Lipid Profileon 04-24-2024 Cholesterol [Mass/Vol] 193 mg/dL Normal 200 [facility] Comment on above: Order Comment: Order Date: 04/22/24 Order Info: [id number] - CMP Order Info: - LIPID Order Info: [id number] - TSH Order Info: 285-1 - PSA Result Comment: <200 mg/dL Desirable 200-240 mg/dL Borderline >240 mg/dL High Risk Performed By: #### L 500.4050, L500.4100, L501.9520, L506.1000, L501.9910, L501.9985, L100.0100 #### [facility] [address] [place], [address] Cholesterol in HDL [Mass/Vol] 36 mg/dL Low [facility] Comment on above: Order Comment: Order Date: 04/22/24 Order Info: [id number] - CMP Order Info: - LIPID Order Info: [id number] - TSH Order Info: [id number] - PSA Result Comment: The drugs N-Acetylcysteine and Metamizole may falsely depress this assay. Reference Range HDL <40 mg/dL Low HDL Cholesterol HDL >or= 60 mg/dL High HDL Cholesterol Performed By: #### L 500.4050, L500.4100, L501.9520, L506.1000, L501.9910, L501.9985, L100.0100 #### [facility] [address] [place], [address] Cholesterol in LDL [Mass/Vol] 128 mg/dL Normal 0-130 [facility] Comment on above: Order Comment: Order Date: 04/22/24 Order Info: [id number] - CMP Order Info: - LIPID Order Info: [id number] - TSH Order Info: [id number] - PSA Performed By: #### L 500.4050, L500.4100, L501.9520, L506.1000, L501.9910, L501.9985, L100.0100 #### [facility] [address] [place], [address] Cholesterol in VLDL [Mass/Vol] 29 mg/dL Normal 5-40 [facility] Comment on above: Order Comment: Order Date: 04/22/24 Order Info: [id number] - CMP Order Info: - LIPID Order Info: [id number] - TSH Order Info: [id number] - PSA Performed By: #### L 500.4050, L500.4100, L501.9520, L506.1000, L501.9910, L501.9985, L100.0100 #### [facility] [address] [place], [place], [address] (764) Triglyceride [Mass/Vol] 146 mg/dL Normal [facility] Comment on above: Order Comment: Order Date: 04/22/24 Order Info: [id number] - CMP Order Info: - LIPID Order Info: [id number] - TSH Order Info: [id number] - PSA Result Comment: The drugs N-Acetylcysteine and Metamizole may falsely depress this assay. Serum Triglycerides Reference Interval Normal <150 mg/dL Borderline high 150 - 199 mg/dL High 200 - 499 mg/dL Very High > or = 500 mg/dL Performed By: #### L 500.4050, L500.4100, L501.9520, L506.1000, L501.9910, L501.9985, L100.0100 #### [facility] [address] [place], [place], [address] (789) PSA,Total - Annual Screenon 04-24-2024 PSA,TOT SCREEN 0.37 ng/mL Normal 0.00-4.00 [facility] Comment on above: Order Comment: Order Date: 04/22/24 Order Info: [id number] - CMP Order Info: - LIPID Order Info: [id number] - TSH Order Info: [id number] - PSA Result Comment: This test was performed using the TPSA assay method for the app[employer]atIT chemistry system. Values obtained with different assay methods cannot be used interchangably. When changing PSA assays in the course of monitoring a patient, additional sequential testing should be carried out to confirm baseline values. Performed By: #### L 500.4050, L500.4100, L501.9520, L506.1000, L501.9910, L501.9985, L100.0100 #### [facility] [address] [place], [place], [address] Thyroid Stim Hormone (TSH)on 04-24-2024 TSH 2.53 uIU/mL Normal 0.358-3.74 [facility] Comment on above: Order Comment: Order Date: 04/22/24 Order Info: [id number] - CMP Order Info: [id number] - LIPID Order Info: [id number] - TSH Order Info: [id number] - PSA Performed By: #### L 500.4050, L500.4100, L501.9520, L506.1000, L501.9910, L501.9985, L100.0100 #### [facility] [address] [place], [address] CNTHERAPYon 11-12-2022 CNTHERAPY OT/PT/Speech Visit (PTWS) GLADYS ALBA ([id number]) 1970 M Date Time Provider Department 11/12/22 9:30 AM ARTIE VELEZ PTWS Date Time Provider Department Center 11/12/2022 9:30 AM [id number], COREY PTWS 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 - cholecalciferol (VITAMIN D) 1,000 unit tab tablet Take 1,000 Units by mouth once daily. - Magnesium 250 mg tab Take 250 mg by mouth once daily. - MIKAELA'S WORT ORAL Take by mouth. - ascorbic acid (VITAMIN C ORAL) Take by mouth. - Lactobacillus acidophilus (PROBIOTIC ORAL) Take by mouth. - BIPAP Normal 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 - cholecalciferol (VITAMIN D) 1,000 unit tab tablet Take 1,000 Units by mouth once daily. - Magnesium 250 mg tab Take 250 mg by mouth once daily. - MIKAELA'S WORT ORAL Take by mouth. - ascorbic acid (VITAMIN C ORAL) Take by mouth. - Lactobacillus acidophilus (PROBIOTIC ORAL) Take by mouth. - BIPAP Normal 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 - cholecalciferol (VITAMIN D) 1,000 unit tab tablet Take 1,000 Units by mouth once daily. - Magnesium 250 mg tab Take 250 mg by mouth once daily. - MIKAELA'S WORT ORAL Take by mouth. - ascorbic acid (VITAMIN C ORAL) Take by mouth. - Lactobacillus acidophilus (PROBIOTIC ORAL) Take by mouth. - BIPAP Normal 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 - cholecalciferol (VITAMIN D) 1,000 unit tab tablet Take 1,000 Units by mouth once daily. - Magnesium 250 mg tab Take 250 mg by mouth once daily. - MIKAELA'S WORT ORAL Take by mouth. - ascorbic acid (VITAMIN C ORAL) Take by mouth. - Lactobacillus acidophilus (PROBIOTIC ORAL) Take by mouth. - BIPAP Normal 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 - cholecalciferol (VITAMIN D) 1,000 unit tab tablet Take 1,000 Units by mouth once daily. - Magnesium 250 mg tab Take 250 mg by mouth once daily. - MIKAELA'S WORT ORAL Take by mouth. - ascorbic acid (VITAMIN C ORAL) Take by mouth. - Lactobacillus acidophilus (PROBIOTIC ORAL) Take by mouth. - BIPAP Normal [facility] CNTHERAPYon 09-17-2022 CNTHERAPY OT/PT/Speech Visit (PTWS) GLADYS ALBA ([id number]) 1970 M Date Time Provider Department 09/17/22 7:00 AM ARTIE VELEZ PTDIANA Date Time Provider Department [place] 09/17/2022 7:00 AM [id number], COREY PTWS Reza Montero Reason for Visit: Physical Therapy [503] Primary Visit Diagnosis:Superior glenoid labrum lesion of left shoulder, subsequent encounter [S46.907D] Other Visit Diagnoses:Arthritis of left shoulder region [M19.012] Strain of other muscles, fascia and tendons at shoulder and upper arm level, left arm, initial encounter [S41.309G] Allergies As of Date: 09/17/2022 Noted Allergy Reaction animal dander [Other] 08/21/2005 5 - Intolerance DUST 08/21/2005 5 - Intolerance GRASS POLLEN 08/21/2005 5 - Intolerance MOLD 08/21/2005 5 - Intolerance POLLEN 08/21/2005 5 - Intolerance TREES 08/21/2005 5 - Intolerance Date Reviewed: 02/07/2022 Reviewed by: Danii Sellers LPN - Fully Assessed Prescriptions as of 09/17/2022 - Zinc 50 mg tab Take 50 mg by mouth once daily. - cholecalciferol (VITAMIN D) 1,000 unit tab tablet Take 1,000 Units by mouth once daily. - Magnesium 250 mg tab Take 250 mg by mouth once daily. - MIKAELA'S WORT ORAL Take by mouth. - ascorbic acid (VITAMIN C ORAL) Take by mouth. - Lactobacillus acidophilus (PROBIOTIC ORAL) Take by mouth. - BIPAP Normal [facility] CNTHERAPYon 09-10-2022 CNTHERAPY OT/PT/Speech Visit (PTWS) GLADYS ALBA ([id number]) 1970 M Date Time Provider Department 09/10/22 4:30 PM ARTIE VELEZ PTDIANA Date Time Provider Department Center 09/10/2022 4:30 PM [id number], COREY PTWS Re[facility] Reason for Visit: PT Eval [747] Primary Visit Diagnosis:Superior glenoid labrum lesion of left shoulder, subsequent encounter [S48.432D] Allergies As of Date: 09/10/2022 Noted Allergy Reaction animal dander [Other] 08/21/2005 5 - Intolerance DUST 08/21/2005 5 - Intolerance GRASS POLLEN 08/21/2005 5 - Intolerance MOLD 08/21/2005 5 - Intolerance POLLEN 08/21/2005 5 - Intolerance TREES 08/21/2005 5 - Intolerance Date Reviewed: 02/07/2022 Reviewed by: Danii Sellers LPN - Fully Assessed Prescriptions as of 09/17/2022 - Zinc 50 mg tab Take 50 mg by mouth once daily. - cholecalciferol (VITAMIN D) 1,000 unit tab tablet Take 1,000 Units by mouth once daily. - Magnesium 250 mg tab Take 250 mg by mouth once daily. - MIKAELA'S WORT ORAL Take by mouth. - ascorbic acid (VITAMIN C ORAL) Take by mouth. - Lactobacillus acidophilus (PROBIOTIC ORAL) Take by mouth. - BIPAP Normal [facility] CNTHERAPYon 04-02-2022 CNTHERAPY OT/PT/Speech Visit (PTWS) GLADYS ALBA ([id number]) 1970 M Date Time Provider Department 04/02/22 8:30 AM ARTIE VELEZ PTWS Date Time Provider Department [place] 04/02/2022 8:30 AM [id number], COREY PTWS Reza Montero Reason for Visit: PT Discharge [752] Primary Visit Diagnosis:Lumbar radiculopathy [M54.16] Allergies As of Date: 04/02/2022 Noted Allergy Reaction animal dander [Other] 08/21/2005 5 - Intolerance DUST 08/21/2005 5 - Intolerance GRASS POLLEN 08/21/2005 5 - Intolerance MOLD 08/21/2005 5 - Intolerance POLLEN 08/21/2005 5 - Intolerance TREES 08/21/2005 5 - Intolerance Date Reviewed: 02/07/2022 Reviewed by: Danii Sellers LPN - Fully Assessed Prescriptions as of 04/08/2022 - Zinc 50 mg tab Take 50 mg by mouth once daily. - cholecalciferol (VITAMIN D) 1,000 unit tab tablet Take 1,000 Units by mouth once daily. - Magnesium 250 mg tab Take 250 mg by mouth once daily. - MIKAELA'S WORT ORAL Take by mouth. - ascorbic acid (VITAMIN C ORAL) Take by mouth. - Lactobacillus acidophilus (PROBIOTIC ORAL) Take by mouth. - BIPAP Normal [facility] CNTHERAPYon 03-07-2022 CNTHERAPY OT/PT/Speech Visit (PTWS) GLADYS ALBA ([id number]) 1970 M Date Time Provider Department 03/07/22 11:30 AM ARTIE VELEZ PTDIANA Date Time Provider Department Center 03/07/2022 11:30 AM [id number], COREY PTDIANA Montero Reason for Visit: Physical Therapy [503] Primary Visit Diagnosis:Lumbar radiculopathy [M54.16] Allergies As of Date: 03/07/2022 Noted Allergy Reaction animal dander [Other] 08/21/2005 5 - Intolerance DUST 08/21/2005 5 - Intolerance GRASS POLLEN 08/21/2005 5 - Intolerance MOLD 08/21/2005 5 - Intolerance POLLEN 08/21/2005 5 - Intolerance TREES 08/21/2005 5 - Intolerance Date Reviewed: 02/07/2022 Reviewed by: Danii Sellers LPN - Fully Assessed Prescriptions as of 03/07/2022 - Zinc 50 mg tab Take 50 mg by mouth once daily. - cholecalciferol (VITAMIN D) 1,000 unit tab tablet Take 1,000 Units by mouth once daily. - Magnesium 250 mg tab Take 250 mg by mouth once daily. - MIKAELA'S WORT ORAL Take by mouth. - ascorbic acid (VITAMIN C ORAL) Take by mouth. - Lactobacillus acidophilus (PROBIOTIC ORAL) Take by mouth. - BIPAP Normal [facility] CNTHERAPYon 02-26-2022 CNTHERAPY OT/PT/Speech Visit (PTWS) GLADYS ALBA ([id number]) 1970 M Date Time Provider Department 02/26/22 7:00 AM ARTIE VELEZ Date Time Provider Department [place] 02/26/2022 7:00 AM [id number], COREY PTDIANA Montero Reason for Visit: Physical Therapy [503] Primary Visit Diagnosis:Lumbar radiculopathy [M54.16] Allergies As of Date: 02/26/2022 Noted Allergy Reaction animal dander [Other] 08/21/2005 5 - Intolerance DUST 08/21/2005 5 - Intolerance GRASS POLLEN 08/21/2005 5 - Intolerance MOLD 08/21/2005 5 - Intolerance POLLEN 08/21/2005 5 - Intolerance TREES 08/21/2005 5 - Intolerance Date Reviewed: 02/07/2022 Reviewed by: Danii Sellers LPN - Fully Assessed Prescriptions as of 02/26/2022 - Zinc 50 mg tab Take 50 mg by mouth once daily. - cholecalciferol (VITAMIN D) 1,000 unit tab tablet Take 1,000 Units by mouth once daily. - Magnesium 250 mg tab Take 250 mg by mouth once daily. - MIKAELA'S WORT ORAL Take by mouth. - ascorbic acid (VITAMIN C ORAL) Take by mouth. - Lactobacillus acidophilus (PROBIOTIC ORAL) Take by mouth. - BIPAP Normal [facility] CNTHERAPYon 02-14-2022 CNTHERAPY OT/PT/Speech Visit (PTWS) GLADYS ALBA ([id number]) 1970 M Date Time Provider Department 02/14/22 12:15 PM ARTIE VELEZ PTWS Date Time Provider Department Center 02/14/2022 12:15 PM [id number], COREY PTWS [facility] Reason for Visit: PT Eval [747] Primary Visit Diagnosis:Lumbar radiculopathy [M54.16] Allergies As of Date: 02/14/2022 Noted Allergy Reaction animal dander [Other] 08/21/2005 5 - Intolerance DUST 08/21/2005 5 - Intolerance GRASS POLLEN 08/21/2005 5 - Intolerance MOLD 08/21/2005 5 - Intolerance POLLEN 08/21/2005 5 - Intolerance TREES 08/21/2005 5 - Intolerance Date Reviewed: 02/07/2022 Reviewed by: Danii Sellers LPN - Fully Assessed Prescriptions as of 02/14/2022 - Zinc 50 mg tab Take 50 mg by mouth once daily. - cholecalciferol (VITAMIN D) 1,000 unit tab tablet Take 1,000 Units by mouth once daily. - Magnesium 250 mg tab Take 250 mg by mouth once daily. - MIKAELA'S WORT ORAL Take by mouth. - ascorbic acid (VITAMIN C ORAL) Take by mouth. - Lactobacillus acidophilus (PROBIOTIC ORAL) Take by mouth. - BIPAP Normal [facility] CNOVon 02-07-2022 CNOV Office Visit (IVETH ) GLADYS ALBA ([id number]) 1970 M Date Time Provider Department 02/07/22 1:00 PM KIET VENEGAS During your visit today, we recorded the following information about you: Pulse Blood pressure Weight 68/minute 122/72 134.3 kg Kiet Venegas MD 02/07/2022 1:43 PM Signed Patient presents with: Physical HPI: Patient presents today for office visit for physical. Psych: he is not using zoloft. Is taking Mikaela's wort. Still has some anxiety. Did have normal stress test for chest pain. Occurs when anxious. No chest pain with exertion. Red flags for re-assessment reviewed with patient in detail. Having some marital issues. Is doing therapy,. ABI: using cpap. Feels it is benefiting him. Saw ortho recently for hip pain. Got a shot yesterday and ordered physical therapy. Not sure if hip or back. Has an occasional tremor starting six months ago. Worse in right hand. No headache. No vision. No new focal numbness or weakness. No ataxia. No known tremor. MEDICATIONS: Current Outpatient Medications Medication Sig - Zinc 50 mg tab Take 50 mg by mouth once daily. - cholecalciferol (VITAMIN D) 1,000 unit tab tablet Take 1,000 Units by mouth once daily. - Magnesium 250 mg tab Take 250 mg by mouth once daily. - sertraline (ZOLOFT) 50 mg tablet Take 1 tablet by mouth once daily. - MIKAELA'S WORT ORAL Take by mouth. - ascorbic acid (VITAMIN C ORAL) Take by mouth. - Lactobacillus acidophilus (PROBIOTIC ORAL) Take by mouth. - BIPAP No current facility-administered medications for this visit. ALLERGIES: ALLERGIES Allergen Reactions - Animal Dander [Othe* Intolerance - Dust Intolerance - Grass Pollen Intolerance - Mold Intolerance - Pollen Intolerance - Trees Intolerance PAST MEDICAL HISTORY Diagnosis Date - Chronic midline low back pain without sciatica 09/27/2019 - Hemorrhage of gastrointestinal tract, unspecified - Hyperlipidemia, mixed 09/27/2019 - Obesity, Class II, BMI 35-39.9 09/27/2019 PAST SURGICAL HISTORY Procedure Laterality Date - ANESTH DIAGNOSTIC ARTHROSCOPIC PROC KNEE JOINT right knee X 2 - COLONOSCOPY FLX DX W/COLLJ SPEC WHEN PFRMD 01/09/2009 Normal - EXC VARICOCELE/LIGATION SPERMATIC VEINS SPX Variocele repair - KNEE ARTHROSCOPY Left - VASECTOMY UNI/BI SPX W/POSTOP SEMEN EXAMS 12-16-06 - WRIST SURGERY HX Bilateral 2018 right and left carpel tunnel release FAMILY HISTORY Problem Relation Age of Onset - Hypertension Mother - Hyperlipidemia Mother - Diabetes Father - Heart Father CHF - Cancer Father Bladder - Colon Cancer Maternal Grandmother - Colon Cancer Maternal Uncle - No Known Problems Half-sister - No Known Problems Half-brother - No Known Problems Half-brother - No Known Problems Daughter - No Known Problems Daughter - No Known Problems Son - No Known Problems Son - No Known Problems Son Social History Tobacco Use - Smoking status: Never Smoker - Smokeless tobacco: Never Used Substance Use Topics - Alcohol use: No - Drug use: No Reviewed current medications, allergies, past medical history, surgical history, family history and social history today. REVIEW OF SYSTEMS NECK: Negative for lumps, goiter, pain and significant neck swelling RESPIRATORY: Negative for cough, hemoptysis, wheezing, COPD, dyspnea or shortness of breath GI: No nausea, vomiting, or diarrhea : No history of dysuria, frequency or incontinence MUSCULOSKELETAL: Negative for joint pain or swelling, back pain or muscle pain SKIN: sees derm with [facility] All other reviewed and negative other than HPI. HEALTH MAINTENANCE: Reviewed health maintenance issues today and recommended the following in detail. COVID-19 VACCINE-Discussed risks and benefits of covid vaccine. Recommended they consider it. HEPATITIS C SCREENING Never done HIV SCREENING Never done COLORECTAL CANCER SCREENING was negative. Done at [facility]. Per Dr. Parisi. DTAP,TDAP,TD(2 - Tdap) due on 07/23/2015 SHINGRIX VACCINE(1 of 2) Never done Had discussion with patient regarding risks and benefits of prostate screening. Allowed them to decide if they wished to proceed with screening including JORGE and PSA. Component Latest Ref Rng AND Units 11/30/2021 Protein, Total 6.3 - 8.0 g/dL 7.6 Albumin 3.9 - 4.9 g/dL 5.1 (H) Calcium 8.5 - 10.2 mg/dL 9.8 Bilirubin, Total 0.2 - 1.3 mg/dL 0.7 Alkaline Phosphatase 38 - 113 U/L 56 AST 14 - 40 U/L 24 ALT 10 - 54 U/L 27 Glucose 74 - 99 mg/dL 90 BUN 9 - 24 mg/dL 12 Creatinine 0.73 - 1.22 mg/dL 0.89 Sodium 136 - 144 mmol/L 138 Potassium 3.7 - 5.1 mmol/L 4.1 Chloride 97 - 105 mmol/L 101 CO2 22 - 30 mmol/L 26 Anion Gap 9 - 18 mmol/L 11 eGFR >=60 mL/min/1.73m? 103 WBC 3.70 - 11.00 k/uL 8.14 RBC 4.20 - 6.00 m/uL 5.13 Hemoglobin 13.0 - 17.0 g/dL 15.8 Hematocrit 39.0 - 51.0 % 47.4 MCV (more content not included)... Normal [facility] CORONAVIRUS PCR [CCL]on 08-23 COVID 19 Result NURSE OBGYN Negative Normal [facility] Comment on above: Result Comment: Nega tive for COVID19 (SARS CoV2) by PCR. This test was developed and its performance characteristics determined by [facility] [place]. This test has been authorized by FDA under an Emergency Use Authorization (EUA). This test has been validated in accordance with the FDA's Guidance Document Policy for Diagnostics Testing in Laboratories Certified to Perform High Complexity Testing under CLIA prior to Emergency use Authorization for Coronavirus Disease 2019 during the Public Health Emergency" issued on November 20, 2019. [facility] [place] [address] Fernando Truong III, M.D. [id number] Performed By: #### [id number] #### [facility],[address] [place] [id number] COVID 19 Source NURSE OBGYN Nasopharyngeal Swab Normal [facility] Comment on above: Result Comment: Archie ected on 09/09 AT 1257: Previously reported as NURSE OBGYN Performed By: #### [id number] #### [facility],[address] [place] [id number] Coronavirus 2019on 0 COVID 19 Result NURSE OBGYN Normal Negative for COVID19 (SARS CoV2) by PCR. [facility] Comment on above: Result Comment: Nega tive for This test was developed and its performance characteristics determined by [facility] [place]. This test has been authorized by FDA under an Emergency Use Authorization (EUA). This test has been validated in accordance with the FDA's Guidance Document "Policy for Diagnostics Testing in Laboratories Certified to Perform High Complexity Testing under CLIA prior to Emergency use Authorization for Coronavirus Disease 2019 during the Public Health Emergency" issued on November 20, 2019. COVID19 (SARS This test was developed and its performance characteristics determined by [facility] [place]. This test has been authorized by FDA under an Emergency Use Authorization (EUA). This test has been validated in accordance with the FDA's Guidance Document "Policy for Diagnostics Testing in Laboratories Certified to Perform High Complexity Testing under CLIA prior to Emergency use Authorization for Coronavirus Disease 2019 during the Public Health Emergency" issued on November 20, 2019. CoV2) by PCR. This test was developed and its performance characteristics determined by [facility] [place]. This test has been authorized by FDA under an Emergency Use Authorization (EUA). This test has been validated in accordance with the FDA's Guidance Document "Policy for Diagnostics Testing in Laboratories Certified to Perform High Complexity Testing under CLIA prior to Emergency use Authorization for Coronavirus Disease 2019 during the Public Health Emergency" issued on November 20, 2019. Coronavirus 2019on 0 COVID 19 Source NURSE OBGYN [facility] Comment on above: Result Comment: Naso pharyngeal Corrected on 09/09 AT 1257: Previously reported as NURSE OBGYN Swab Corrected on 09/09 AT 1257: Previously reported as NURSE OBGYN Vital Signs Date Time Vital Sign Value Performing Clinician Facility 06-08-2025 14:42-0400 Body height 191 cm Margaret Shrotmer DOUBLING MACHINE OPERATOR-NURSING HOME SOCIAL WORKER Work Phone: [facility] 06-08-2025 14:42-0400 Body height 190.5 cm Margaret Shortmer DOUBLING MACHINE OPERATOR-NURSING HOME SOCIAL WORKER Work Phone: [facility] 06-08-2025 14:42-0400 Body mass index (BMI) [Ratio] 36.5 kg/m2 Margaret Shortmer DOUBLING MACHINE OPERATOR-NURSING HOME SOCIAL WORKER Work Phone: [facility] 06-08-2025 14:42-0400 Body weight 132 kg Margaret Shortmer DOUBLING MACHINE OPERATOR-NURSING HOME SOCIAL WORKER Work Phone: [facility] 06-08-2025 14:42-0400 BP SITE #1 Margaret Jeffries DOUBLING MACHINE OPERATOR-NURSING HOME SOCIAL WORKER Work Phone: [facility] 06-08-2025 14:42-0400 Diastolic blood pressure 89 mm[Hg] Margaret Jeffries DOUBLING MACHINE OPERATOR-NURSING HOME SOCIAL WORKER Work Phone: [facility] 06-08-2025 14:42-0400 Heart rate 71 /min Margaret Shortmer DOUBLING MACHINE OPERATOR-NURSING HOME SOCIAL WORKER Work Phone: [facility] 06-08-2025 14:42-0400 HGHTCHNVIS Margaret Sorensenhammer DOUBLING MACHINE OPERATOR-NURSING HOME SOCIAL WORKER Work Phone: [facility] 06-08-2025 14:42-0400 Systolic blood pressure 131 mm[Hg] Margaret Jeffries DOUBLING MACHINE OPERATOR-NURSING HOME SOCIAL WORKER Work Phone: [facility] 06-08-2025 14:42-0400 VITALSDONE Margarettegan Jeffries DOUBLING MACHINE OPERATOR-NURSING HOME SOCIAL WORKER Work Phone: [facility] 10-12-2024 18:26-0500 Body mass index (BMI) [Ratio] 39.25 kg/m2 Goldy Zafar DOUBLING MACHINE OPERATOR.NURSING HOME SOCIAL WORKER Work Phone: [facility] 10-12-2024 18:26-0500 Body temperature 98.91 [degF] Goldy Zafar APRN.NURSING HOME SOCIAL WORKER Work Phone: [facility] 10-12-2024 18:26-0500 Body weight 142.43 kg Goldy Zafar APRN.NURSING HOME SOCIAL WORKER Work Phone: [facility] 10-12-2024 18:26-0500 Diastolic blood pressure 85 mm[Hg] Goldy Zafar APRN.NURSING HOME SOCIAL WORKER Work Phone: [facility] 10-12-2024 18:26-0500 Heart rate 84 /min Goldy Zafar APRN.NURSING HOME SOCIAL WORKER Work Phone: [facility] 10-12-2024 18:26-0500 Respiratory rate 19 /min Goldy Zafar APRN.NURSING HOME SOCIAL WORKER Work Phone: [facility] 10-12-2024 18:26-0500 SaO2% (BldA) [Mass fraction] 97 % Goldy Zafar APRN.NURSING HOME SOCIAL WORKER Work Phone: [facility] 10-12-2024 18:26-0500 Systolic blood pressure 141 mm[Hg] Goldy Zafar APRN.NURSING HOME SOCIAL WORKER Work Phone: [facility] 05-13-2024 09:58-0400 Body height 190.5 cm Sonia Chan DOUBLING MACHINE OPERATOR - NURSING HOME SOCIAL WORKER Work Phone: [facility] 05-13-2024 09:58-0400 Body mass index (BMI) [Ratio] 39.37 kg/m2 Sonia Corrigall DOUBLING MACHINE OPERATOR - NURSING HOME SOCIAL WORKER Work Phone: [facility] [employer] 05-13-2024 09:58-0400 Body temperature 96.91 [degF] Sonia Corrigall DOUBLING MACHINE OPERATOR - NURSING HOME SOCIAL WORKER Work Phone: [facility] [employer] 05-13-2024 09:58-0400 Body weight 142.88 kg Sonia Corrigall DOUBLING MACHINE OPERATOR - NURSING HOME SOCIAL WORKER Work Phone: [facility] [employer] 05-13-2024 09:58-0400 Diastolic blood pressure 84 mm[Hg] Sonia Corrigall DOUBLING MACHINE OPERATOR - NURSING HOME SOCIAL WORKER Work Phone: [facility] [employer] 05-13-2024 09:58-0400 Heart rate 67 /min Sonia Corrigall DOUBLING MACHINE OPERATOR - NURSING HOME SOCIAL WORKER Work Phone: [facility] [employer] 05-13-2024 09:58-0400 Respiratory rate 16 /min Sonia Corrigall DOUBLING MACHINE OPERATOR - NURSING HOME SOCIAL WORKER Work Phone: [facility] 05-13-2024 09:58-0400 SaO2% (BldA) [Mass fraction] 100 % Sonia Corrigall DOUBLING MACHINE OPERATOR - NURSING HOME SOCIAL WORKER Work Phone: [facility] 05-13-2024 09:58-0400 Systolic blood pressure 130 mm[Hg] Sonia Corrigall DOUBLING MACHINE OPERATOR - NURSING HOME SOCIAL WORKER Work Phone: [facility] 02-14-2022 12:00-0400 Diastolic blood pressure 90 mm[Hg] Artie Velez PT [facility] 02-14-2022 12:00-0400 Systolic blood pressure 124 mm[Hg] Artie Velez PT [facility] 02-07-2022 13:08-0400 Body weight 134.26 kg Kiet Venegas MD Work Phone: [facility] 02-07-2022 13:08-0400 Diastolic blood pressure 72 mm[Hg] Kiet Venegas MD Work Phone: [facility] 02-07-2022 13:08-0400 Heart rate 68 /min Kiet Venegas MD Work Phone: [facility] 02-07-2022 13:08-0400 Systolic blood pressure 122 mm[Hg] Kiet Venegas MD Work Phone: [facility] Encounters Encounter Date Encounter Type Care Provider Facility Start: 06-08-2025 Visit out of hours Margaret herr DOUBLING MACHINE OPERATOR-NURSING HOME SOCIAL WORKER Work Phone: [employer] Work Phone: Start: 06-08-2025 In-person encounter Margaret Jeffries DOUBLING MACHINE OPERATOR-NURSING HOME SOCIAL WORKER Work Phone: [facility] Work Phone: Start: 10-12-2024 End: 10-12-2024 Subsequent hospital visit by physician [facility] Work Phone: [facility] Comment on above: Cough with fever [R0 5.9, R50.9] Start: 10-12-2024 End: 10-12-2024 Office outpatient new 30 minutes Goldy Zafar DOUBLING MACHINE OPERATOR.NURSING HOME SOCIAL WORKER [facility] Comment on above: Cough with fever (Pr imary Dx); URI, acute Start: 10-12-2024 End: 10-12-2024 ambulatory SELF Facility:[id number] Start: 05-13-2024 End: 05-13-2024 Anesthesia consultation Bryon Méndez MD Work Phone: [facility] Start: 05-13-2024 End: 05-13-2024 Subsequent hospital visit by physician Hodan Ecg [facility] Comment on above: Arrived Other congenital mal formations of spine, not associated with scoliosis Start: 05-13-2024 End: 05-13-2024 ambulatory [facility] Start: 04-24-2024 End: 04-24-[facility] Start: 04-05-2024 End: 04-05-2024 Telephone encounter Kathryn Akbar RN [facility] Start: 03-30-2024 End: 03-30-2024 Telephone encounter Kathryn Akbar RN [facility] Start: 03-12-2024 End: 03-12-2024 Telephone encounter Nancy Vincent RN [facility] Start: 03-11-2024 End: 03-11-[address] RN [facility] Start: 02-20-2024 End: 05-21-2024 Transcribe Orders Sonia Chan APRN - NURSING HOME SOCIAL WORKER Work Phone: [facility] Comment on above: Other congenital mal formations of spine, 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) Start: 11-12-2022 End: 11-12-2022 ambulatory ARTIE VELEZ Facility:[facility] Start: 11-12-2022 End: 11-12-2022 ambulatory Artie Velez PT Work Phone: [facility] Comment on above: Arthritis of left sh oulder region (Primary Dx); Chondromalacia of left shoulder Start: 10-21-2022 End: 10-21-2022 ambulatory ARTIE VELEZ Facility:[facility] Start: 10-21-2022 End: 10-21-2022 ambulatory Artie Velez PT Work Phone: [facility] Comment on above: Arthritis of left sh oulder region (Primary Dx); Chondromalacia of left shoulder Start: 10-08-2022 End: 10-08-2022 ambulatory Artie Velez PT Work Phone: [facility] Comment on above: Arthritis of left sh oulder region (Primary Dx); Chondromalacia of left shoulder Start: 10-03-2022 End: 10-03-2022 ambulatory ARTIE VELEZ Facility:[facility] Start: 10-03-2022 End: 10-03-2022 ambulatory Artie Velez PT Work Phone: [facility] Comment on above: Arthritis of left sh oulder region (Primary Dx); Chondromalacia of left shoulder Start: 09-25-2022 End: 09-25-2022 ambulatory Artie Velez PT [facility] Comment on above: Arthritis of left sh oulder region (Primary Dx); Chondromalacia of left shoulder Start: 09-17-2022 End: 09-17-2022 ambulatory [facility] Facility:[facility] Start: 09-10-2022 End: 09-10-2022 ambulatory ARTIE VELEZ Facility:[facility] Start: 09-10-2022 End: 09-10-2022 ambulatory Artie Velez PT [facility] Comment on above: Superior glenoid lab rum lesion of left shoulder, subsequent encounter (Primary Dx) Start: 07-31-2022 ambulatory Kiet Venegas MD Work Phone: [facility] Start: 06-25-2022 ambulatory RED Shonna BASURTO [facility] Start: 04-02-2022 End: 04-02-2022 ambulatory ARTIE VELEZ Facility:[facility] Start: 04-02-2022 End: 04-02-2022 ambulatory Artie Velez PT [facility] Comment on above: Lumbar radiculopathy (Primary Dx) Start: 03-07-2022 End: 03-07-2022 ambulatory KIET VENEGAS Facility:[facility] Start: 02-26-2022 End: 02-26-2022 ambulatory Artie Velez PT [facility] Comment on above: Lumbar radiculopathy (Primary Dx) Start: 02-14-2022 End: 02-14-2022 ambulatory [facility] Facility:[facility] Start: 02-14-2022 End: 02-14-2022 ambulatory Artie Velez PT [facility] Comment on above: Lumbar radiculopathy (Primary Dx) Start: 02-07-2022 End: 02-07-2022 ambulatory KIET VENEGAS Facility:[facility] Start: 02-07-2022 End: 02-07-2022 Patient encounter procedure Kiet Venegas MD Work Phone: [facility] Comment on above: Well adult exam (Odalis marc Dx); ABI (obstructive sleep apnea); Screening for colon cancer; Need for hepatitis C screening test; Screening for HIV (human immunodeficiency virus); Tremor Start: 02-07-2022 End: 02-07-2022 Patient encounter status Kiet Venegas MD Work Phone: [facility] [place] Start: 01-30-2022 End: 01-30-2022 ambulatory INGE DYSON Facility:[facility] Start: 09-07-2020 End: 09-07-2020 Patient encounter procedure KIET Viky APPLE [facility] Procedures Date Procedure Procedure Detail Performing Clinician Start: 06-08-2025 Blood pressure withi n normal parameters - no follow-up required Margaret Jeffries DOUBLING MACHINE OPERATOR-NURSING HOME SOCIAL WORKER Work Phone: Start: 06-08-2025 BMI outside of keira l parameters - no follow-up plan/reason not given Margaret Jeffries DOUBLING MACHINE OPERATOR-NURSING HOME SOCIAL WORKER Work Phone: Start: 06-08-2025 Current tobacco non- user cad cap copd pv dm Margaret Jeffries DOUBLING MACHINE OPERATOR-NURSING HOME SOCIAL WORKER Work Phone: Start: 06-08-2025 Documentation of cur rent medications Margaret Jeffries DOUBLING MACHINE OPERATOR-NURSING HOME SOCIAL WORKER Work Phone: Start: 06-08-2025 Pain assessment docu mented as positive - no follow-up/reason not given Margaret Jeffries DOUBLING MACHINE OPERATOR-NURSING HOME SOCIAL WORKER Work Phone: Start: 05-13-2024 Ecg routine ecg w/le ast 12 lds trcg only w/o i&r Angel Davis MD Work Phone: Start: 05-13-2024 Basic metabolic pane l calcium total Angel Davis MD Work Phone: Start: 11-30-2021 Adult depression scr eening assessment Kiet Venegas MD Work Phone: Start: 09-27-2019 Lipid 1996 panel - S pino or Plasma Goldy Zafar DOUBLING MACHINE OPERATOR.NURSING HOME SOCIAL WORKER Work Phone: Plan of Treatment Date Care Activity Detail Author Start: 2029 RSV Immunization age d 60 or older (1 - 1-dose 60+ series) RSV Immunization aged 60 or older (1 - 1-dose 60+ series) [facility] [employer] Start: 05-13-2027 Diabetes Screening Diabetes Screenin g [facility] Start: 06-08-2025 End: 06-08-2025 [employer] Work Phone: Start: 06-08-2025 Njx anes&/strd w/img tfrml edrl lmbr/sac 1 lvl [facility] Work Phone: Start: 11-30-2024 DIABETES SCREEN DIABETES SCREEN [facility] Start: 09-27-2024 Lipid panel Lipid Screening [facility] Start: 09-27-2024 LIPID SCREEN LIPID SCREEN [facility] Start: 05-23-2024 Covid-19 Vaccine () Covid-19 Vaccine () [facility] Start: 05-23-2024 Influenza vaccination [facility] Start: 05-13-2024 End: 05-13-2024 Patient encounter procedure 05/13/2024 11:30 AM EDT Appointment [facility] [address] [place] [address] [facility] Start: 2024 Prostate specific antigen measurement Prostate Cancer Screening Discussion [facility] Start: 04-07-2024 End: 04-07-2024 Patient encounter procedure 04/07/2024 8:00 AM EDT Appointment [facility] [address] [place] [address] [facility] Start: 03-18-2024 End: 03-18-2024 Patient encounter procedure 03/18/2024 11:30 AM EDT Appointment [facility] [address] [place] [address] Sonia Chan, DOUBLING MACHINE OPERATOR - NURSING HOME SOCIAL WORKER [address] [facility] [address] [place] [address] [facility] Start: 05-23-2023 COVID-19 Vaccine ( season) COVID-19 Vaccine () [facility] Start: 11-30-2022 Adult depression screening assessment DEPRESSION SCREENING [facility] Start: 09-22-2022 DEPRESSION ASSESSMENT DEPRESSION ASS ESSMENT [facility] Start: 08-10-2022 End: 10-10-2022 LIPID PANEL BASIC LIPID PANEL BASIC Lab Routine Well adult exam Expected: 08/10/2022, Expires: 10/10/[address] [facility] Work Phone: Comment on above: Expected: 08/10/2022 , Expires: 10/10/2022 Start: 05-23-2022 Influenza vaccination [facility] Start: 02-07-2022 End: 04-09-2022 Hepatitis C virus Ab [Presence] in Serum HEP C AB IA W/CONF SCRN Lab Routine Need for hepatitis C screening test Expected: 02/07/2022, Expires: 04/09/[address] [facility] Work Phone: Comment on above: Expected: 02/07/2022 , Expires: 04/09/2022 Start: 02-07-2022 End: 04-09-2022 HIV 1+2 Ab [Presence] in Serum or Plasma by Immunoassay HIV 1 2 COMBO(AG/AB),WITH REFLEX TO DIFFERENTIATION Lab Routine Screening for HIV (human immunodeficiency virus) Expected: 02/07/2022, Expires: 04/09/[address] [facility] Work Phone: Comment on above: Expected: 02/07/2022 , Expires: 04/09/2022 Start: 09-22-2021 DEPRESSION ASSESSMENT DEPRESSION ASS ESSMENT [facility] Start: 2019 Pneumococcal Vaccine : 50+ (1 of 1 - PCV) Pneumococcal Vaccine: 50+ (1 of 1 - PCV) [facility] Start: 2019 SHINGRIX VACCINE (1 of 2) SHINGRIX VACCINE (1 of 2) [facility] Start: 2019 Zoster Vaccines (1 o f 2) Zoster Vaccines (1 of 2) [facility] Start: 07-23-2015 DTaP/Tdap/Td Vaccine s (2 - Tdap) DTaP/Tdap/Td Vaccines (2 - Tdap) [facility] Start: 07-23-2015 Urine microalbumin profile [facility] Start: 2014 COLOGUARD (FIT-DNA) COLOGUARD (FIT-D NA) [facility] Start: 2014 Colonoscopy COLONOSCOPY [facility] Start: 2014 COLORECTAL CANCER SCREENING COLORECTAL CANCER SCREENING [facility] Start: [address] COLONOGRAPHY [facility] Start: 2014 FECAL OCCULT BLOOD FECAL OCCULT BLOO D [facility] Start: 2014 Screening for malign ant neoplasm of colon [facility] Start: 2014 SIGMOIDOSCOPY SIGMOIDOSCOPY [facility] Start: 1988 Hepatitis B Vaccine (1 of 3 - 19+ 3-dose series) Hepatitis B Vaccine (1 of 3 - 19+ 3-dose series) [facility] Start: 1988 Hepatitis B Vaccines (1 of 3 - 19+ 3-dose series) Hepatitis B Vaccines (1 of 3 - 19+ 3-dose series) [facility] Start: 1987 Anxiety Screening Anxiety Screening [facility] Start: 1987 Depression Screening Depression Scre ing [facility] Start: 1987 Diabetes mellitus screening Diabetes Screening [facility] Start: 1987 HEPATITIS C SCREENING HEPATITIS C [facility] Start: 1987 Hepatitis C screening Hepatitis C [facility] Start: 1987 HIV SCREENING HIV SCREENING [facility] Start: 1987 HIV screening HIV Screening [facility] Start: 1981 Depression Screening Depression Scre ing [facility] Start: 1974 COVID-19 VACCINE (#1) COVID-19 VACCI NE (#1) [facility] Start: 1970 MMR Vaccines (1 of 1 - Standard series) MMR Vaccines (1 of 1 - Standard series) [facility] Start: 1969 COVID-19 VACCINE (#1) COVID-19 VACCI NE (#1) [facility] Start: 1969 HEPATITIS B (1 of 3 - 3-dose series) HEPATITIS B (1 of 3 - 3-dose series) [facility] Start: 1969 HIV screening HIV Screening [facility] Start: 1969 Lipid panel Lipid Panel [facility] Start: 1969 Screening for malign ant neoplasm of colon [facility] End: 05-13-2024 ECG 12 lead [facility] Work Phone: Comment on above: Once for 1 Occurrenc es starting 05/13/2024 until 05/13/2024 End: 05-13-2024 MR Lumbar spine WO contrast [facility] Work Phone: Comment on above: Once for 1 Occurrenc es starting 05/13/2024 until 05/13/2024 End: 07-31-2023 Screening colonoscopy COLONOSCOPY SCREENING Endoscopy Routine Screening for colon cancer 1 Occurrences starting 07/31/2022 until 07/31/[address] [facility] Work Phone: Comment on above: 1 Occurrences starti ng 07/31/2022 until 07/31/2023 End: 11-11-2025 XR Chest PA and Lateral XR CHEST 2V FRONTAL/LAT Radiology Routine Cough with fever 1 Occurrences starting 10/12/2024 until 11/11/[address] [facility] Work Phone: Comment on above: 1 Occurrences starti ng 10/12/2024 until 11/11/2025 XR Chest PA and Lateral XR CHEST 2V FRONTAL/LAT Radiology Routine Cough with fever 10/12/2024 7:[address] [facility] Immunizations Immunization Date Immunization Notes Care Provider Koki koch 01-06-2019 influenza virus vaccine, unspecified formulation Kavya Lane RN [facility] 07-23-2005 diphtheria and tetan us toxoids, adsorbed for pediatric use Kiet Venegas MD Work Phone: [facility] Work Phone: Payers Date Payer Category Payer Self-pay 2020 Unknown 2016 Unknown [id number] 2016 Unknown [id number] 1969 Unknown [id number] 1969 Unknown 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) [facility] Start: 10-05-2021 History SDOH Alcohol Frequency 3 [facility] Start: 10-05-2021 History SDOH Alcohol Std Drinks 1 [facility] Start: 10-05-2021 History SDOH Social Connections Phone 98 [facility] Start: 10-05-2021 History SDOH Social Connections Membership 2 [facility] Start: 10-05-2021 History SDOH Physica l Activity DPW 0 [facility] Start: 1970 Sex Assigned At Not on file [facility] Start: 01-28-2022 End: 02-07-2022 Exposure to SARS-CoV-2 (event) Not sure [facility] Start: 05-15-2012 Tobacco use and exposure Smoke less tobacco non-user [facility] Work Phone: Tobacco smoking stat [facility] Tobacco smoking consumption unknown [facility] Start: 05-13-2024 End: 06-08-2025 Gender identity Not on file [facility] Start: 10-08-2022 End: 05-13-2024 History of Social function [facility] Within the last year , have you been afraid of your partner or ex-partner? No [facility] Start: 10-12-2024 Alcoholic beverage intake Current drinker of alcohol (finding) [facility] In a typical week, h ow many times do you talk on the telephone with family, friends, or neighbors? Patient declined [facility] Are you now , , , , never or living with a partner? [facility] How often to you hav e a drink containing alcohol? 2-4 times a month [facility] How many standard dr inks containing alcohol do you have on a typical day? 1 or 2 [facility] How often do you hav e 6 or more drinks on 1 occasion? Never [facility] Do you feel stress - tense, restless, nervous, or anxious, or unable to sleep at night because your mind is troubled all the time - these days [OSQ] To some extent [facility] Start: 10-12-2024 Alcohol Comment occ [facility] Functional Status Date Assessment Result Facility 06-08-2025 Functional Status without [facility] Work Phone: 06-08-2025 dependent [facility] Work Phone: Clinical Notes 10-03-2021 to 10-12-2024 Davide Roland RT(R) - 10/12/2024 7:20 PM ESTPatient InstructionsNelsGoldy joyce, DOUBLING MACHINE OPERATOR.NURSING HOME SOCIAL WORKER - 10/12/2024 6:52 PM ESTProcedure Summary Note Date & Type Note Facility 10-12-2024 History of Presen t illness Narrative Radiology Service Progress Note PATIENT NAME: Gladys Alba DATE OF SERVICE: October 12, 2024 TIME: 8:09 PM PATIENT IDENTITY VERIFICATION COMPLETED USING TWO (2) IDENTIFIERS: Name and Date of confirmed by patient verbally. FALL SCREENING: Has the patient had 2 falls in the last year or 1 fall with injury or currently using an Ambulatory Assistive Device (Walker, Cane, Wheelchair, Crutches, etc.)? No PATIENT GENDER DATA: Assigned male at PATIENT RELEVANT IMPLANT DATA REVIEWED: Not Applicable PATIENT PRESENTS WITH AN IMPLANTABLE OR ATTACHED DOCTOR OF OPTOMETRY: No RADIOLOGY DEPARTMENT: General X-ray: Exam(s) Completed: Chest X-Ray PERIPHERAL IV DATA: Not applicable SIGNED BY: RT Chirag(Terry) October 12, 2024 8:09 PM documented in this encounter [facility] 10-12-2024 Note HNO ID: [id number] Author: DAVIDE ROLAND RT(eTrry) Service: ? Author Type: Technologist Type: Progress Notes Filed: 10/12/2024 20:10 Note Text: Radiology Service Progress Note PATIENT NAME: Gladys Alba DATE OF SERVICE: October 12, 2024 TIME: 8:09 PM PATIENT IDENTITY VERIFICATION COMPLETED USING TWO (2) IDENTIFIERS: Name and Date of confirmed by patient verbally. FALL SCREENING: Has the patient had 2 falls in the last year or 1 fall with injury or currently using an Ambulatory Assistive Device (Walker, Cane, Wheelchair, Crutches, etc.)? No PATIENT GENDER DATA: Assigned male at PATIENT RELEVANT IMPLANT DATA REVIEWED: Not Applicable PATIENT PRESENTS WITH AN IMPLANTABLE OR ATTACHED DOCTOR OF OPTOMETRY: No RADIOLOGY DEPARTMENT: General X-ray: Exam(s) Completed: Chest X-Ray PERIPHERAL IV DATA: Not applicable SIGNED BY: RT Chirag(R) October 12, 2024 8:09 PM [facility] 10-12-2024 Instructions Goldy Zafar APRN.NURSING HOME SOCIAL WORKER - 10/12/2024 7:15 PM EST RESPIRATORY INFECTION GENERAL INFORMATION: An upper respiratory tract infection, or cold, is a viral infection of the airway passages. It can be caused by any one of almost 200 different viruses. Common symptoms include a runny or stuffy nose, sneezing, watery eyes, sore throat, cough, and slight fever. Colds are contagious, especially during the first 3 or 4 days and cannot be cured by antibiotics. They are spread by coughs, sneezes, and direct contact, especially [id number]. A respiratory tract infection usually clears up in a few days, but some people may be sick for a week or two. INSTRUCTIONS: 1. Be careful not to blow your nose too hard because this may cause a nosebleed. 2. Use a cool-mist humidifier (vaporizer) to increase air moisture. This will make it easier for you to breathe. Do not use hot steam. 3. Rest as much as possible and get plenty of sleep. 4. Wash your hands often, especially after you blow your nose. Cover your mouth and nose with a tissue when you sneeze or cough. 5. Drink plenty of clear fluids (8 glasses a day) such as water, fruit juice, tea, clear soups, and carbonated beverages. CONTACT YOUR DOCTOR IF : 1. Your fever lasts more than 3 days. 2. You have a sore throat that gets worse or you see white or yellow spots in your throat. 3. Your cough gets worse or lasts more than 10 days. 4. You develop a rash anywhere on your skin. 5. You have an earache or a headache. 6. You have thick greenish or yellowish discharge from your nose. RETURN IMMEDIATELY IF: 1. You cough up thick yellow, green, jacome, or bloody sputum. 2. You have difficulty breathing, pain in your chest, or your skin or nails look jacome or blue. 3. You have shaking chills or a temperature over 102 F (39 C). documented in this encounter [facility] 10-12-2024 Note HNO ID: [id number] Author: GOLDY ZAFAR APRN.LUIS Service: ? Author Type: Nurse Practitioner Type: Progress Notes Filed: 10/12/2024 19:17 Note Text: Gladys Alba is a 54 year old male who presents with Flu Like Symptoms (Very bad cough chest congestion wheezing - Entered by patient), Cough, Chest Congestion, Wheezing (X4days all symptoms/), and Short Of Breath Started Friday worsened over the weekend. Including , fevers, chills, congestion and cough. Feels winded with minimal exertion. Taking mucinex DM and Ibuprofen Flu Like Symptoms Associated symptoms include chills, congestion, coughing, a fever, headaches, myalgias and a sore throat. Cough Associated symptoms include chills, headaches, sore throat, myalgias, shortness of breath and wheezing. Wheezing Associated symptoms include chills, coughing, a fever, headaches, shortness of breath and a sore throat. Short Of Breath Associated symptoms include chills, congestion, coughing, a fever, headaches, myalgias and a sore throat. 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 cholecalciferol (VITAMIN D) 1,000 unit tab tablet Take 1,000 Units by mouth once daily. Magnesium 250 mg tab Take 250 mg by mouth once daily. MIKAELA'S WORT ORAL Take by mouth. ascorbic acid (VITAMIN C ORAL) Take by mouth. Lactobacillus acidophilus (PROBIOTIC ORAL) Take by mouth. BIPAP No current facility-administered medications for this visit. Social History Tobacco Use Smoking status: Never Smokeless tobacco: Never Vaping Use Vaping status: Never Used Substance Use Topics Alcohol use: Yes Comment: occ Drug use: No Alcohol Use: Yes (occ) Tobacco Use: Never FAMILY HISTORY Problem Relation Age of Onset Hypertension Mother Hyperlipidemia Mother Diabetes Father Heart Father CHF Cancer Father Bladder Colon Cancer Maternal Grandmother Colon Cancer Maternal Uncle No Known Problems Half-sister No Known Problems Half-brother No Known Problems Half-brother No Known Problems Daughter No Known Problems Daughter No Known Problems Son No Known Problems Son No Known Problems Son Review of Systems Constitutional: Positive for chills, fever and malaise/fatigue. HENT: Positive for congestion and sore throat. Respiratory: Positive for cough, chest tightness, shortness of breath and wheezing. Cardiovascular: Negative. Gastrointestinal: Negative. Musculoskeletal: Positive for myalgias. Neurological: Positive for headaches. All other systems reviewed and are negative. BP 141/85 Pulse 84 Temp (Src) 98.9 (Temporal) Resp 19 Wt 314 lb (142.4kg) SpO2 97% Physical Exam Vitals and nursing note reviewed. Constitutional: Appearance: Normal appearance. He is not ill-appearing. HENT: Right Ear: Tympanic membrane is retracted. Left Ear: Tympanic membrane is retracted. Nose: Congestion and rhinorrhea present. Mouth/Throat: Mouth: Mucous membranes are moist. Pharynx: Oropharynx is clear. Posterior oropharyngeal erythema present. No oropharyngeal exudate. Eyes: Extraocular Movements: Extraocular movements intact. Conjunctiva/sclera: Conjunctivae normal. Pupils: Pupils are equal, round, and reactive to light. Cardiovascular: Rate and Rhythm: Normal rate and regular rhythm. Pulmonary: Effort: Pulmonary effort is normal. No respiratory distress. Breath sounds: No stridor. Rhonchi present. No wheezing or rales. Chest: Chest wall: No tenderness. Abdominal: General: Abdomen is flat. Musculoskeletal: General: Normal range of motion. Lymphadenopathy: Cervical: Cervical adenopathy present. Skin: General: Skin is warm and dry. Neurological: General: No focal deficit present. Mental Status: He is alert and oriented to person, place, and time. ASSESSMENT/PLAN: 1. Cough with fever - ICD9: 786.2, 780.60, ICD10: R05.9, R50.9 (primary diagnosis) - XR CHEST 2V FRONTAL/LAT-no acute finding per my read will of course await radiologist interpretation - - ALBUTEROL SULFATE HFA 90 MCG/ACTUATION AEROSOL INHALER - BENZONATATE 100 MG CAPSULE - SD (more content not included)... [facility] 10-12-2024 History of Presen t illness Narrative Gladys Alba is a 54 year old male who presents with Flu Like Symptoms (Very bad cough chest congestion wheezing - Entered by patient), Cough, Chest Congestion, Wheezing (X4days all symptoms/), and Short Of Breath Started Friday worsened over the weekend. Including , fevers, chills, congestion and cough. Feels winded with minimal exertion. Taking mucinex DM and Ibuprofen Flu Like Symptoms Associated symptoms include chills, congestion, coughing, a fever, headaches, myalgias and a sore throat. Cough Associated symptoms include chills, headaches, sore throat, myalgias, shortness of breath and wheezing. Wheezing Associated symptoms include chills, coughing, a fever, headaches, shortness of breath and a sore throat. Short Of Breath Associated symptoms include chills, congestion, coughing, a fever, headaches, myalgias and a sore throat. 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 cholecalciferol (VITAMIN D) 1,000 unit tab tablet Take 1,000 Units by mouth once daily. Magnesium 250 mg tab Take 250 mg by mouth once daily. MIKAELA'S WORT ORAL Take by mouth. ascorbic acid (VITAMIN C ORAL) Take by mouth. Lactobacillus acidophilus (PROBIOTIC ORAL) Take by mouth. BIPAP No current facility-administered medications for this visit. Social History Tobacco Use Smoking status: Never Smokeless tobacco: Never Vaping Use Vaping status: Never Used Substance Use Topics Alcohol use: Yes Comment: occ Drug use: No Alcohol Use: Yes (occ) Tobacco Use: Never FAMILY HISTORY Problem Relation Age of Onset Hypertension Mother Hyperlipidemia Mother Diabetes Father Heart Father CHF Cancer Father Bladder Colon Cancer Maternal Grandmother Colon Cancer Maternal Uncle No Known Problems Half-sister No Known Problems Half-brother No Known Problems Half-brother No Known Problems Daughter No Known Problems Daughter No Known Problems Son No Known Problems Son No Known Problems Son Review of Systems Constitutional: Positive for chills, fever and malaise/fatigue. HENT: Positive for congestion and sore throat. Respiratory: Positive for cough, chest tightness, shortness of breath and wheezing. Cardiovascular: Negative. Gastrointestinal: Negative. Musculoskeletal: Positive for myalgias. Neurological: Positive for headaches. All other systems reviewed and are negative. BP 141/85 Pulse 84 Temp (Src) 98.9 (Temporal) Resp 19 Wt 314 lb (142.4kg) SpO2 97% Physical Exam Vitals and nursing note reviewed. Constitutional: Appearance: Normal appearance. He is not ill-appearing. HENT: Right Ear: Tympanic membrane is retracted. Left Ear: Tympanic membrane is retracted. Nose: Congestion and rhinorrhea present. Mouth/Throat: Mouth: Mucous membranes are moist. Pharynx: Oropharynx is clear. Posterior oropharyngeal erythema present. No oropharyngeal exudate. Eyes: Extraocular Movements: Extraocular movements intact. Conjunctiva/sclera: Conjunctivae normal. Pupils: Pupils are equal, round, and reactive to light. Cardiovascular: Rate and Rhythm: Normal rate and regular rhythm. Pulmonary: Effort: Pulmonary effort is normal. No respiratory distress. Breath sounds: No stridor. Rhonchi present. No wheezing or rales. Chest: Chest wall: No tenderness. Abdominal: General: Abdomen is flat. Musculoskeletal: General: Normal range of motion. Lymphadenopathy: Cervical: Cervical adenopathy present. Skin: General: Skin is warm and dry. Neurological: General: No focal deficit present. Mental Status: He is alert and oriented to person, place, and time. ASSESSMENT/PLAN: 1. Cough with fever - ICD9: 786.2, 780.60, ICD10: R05.9, R50.9 (primary diagnosis) - XR CHEST 2V FRONTAL/LAT-no acute finding per my read will of course await radiologist interpretation - - ALBUTEROL SULFATE HFA 90 MCG/ACTUATION AEROSOL INHALER - BENZONATATE 100 MG CAPSULE - PREDNISONE 10 MG TABLET - [id number] 2 MG-30 MG-10 MG/5 ML ORAL SYRUP - AZITHROMYCIN 250 MG TABLET 2. URI, acute - ICD9: 465.9, ICD10: J06.9 - Discussed viral etiology and rationale for treatment. - Symptomatic treatment with prn analgesia - Supportive care with fluids and rest - The patient may also use warm salt water gargles, throat lozenges and/or OTC throat spray as needed and nasal saline gtts and suction prn. - Follow up in one week if symptoms persist or sooner if worsening of symptoms -Discussed medications and treatment plan below. At this point I do not suspect atypical pneumonia this is most likely of viral illness. However if he does not improve in the next 5 to 6 days he can go ahead and start the azithromycin especially since he had significant exposure to his son. Red flag symptoms and when to follow-up discussed patient answered questions accordingly and discharged home - ALBUTEROL SULFATE HFA 90 MCG/ACTUATION AEROSOL INHALER - BENZONATATE 100 MG CAPSULE - PREDNISONE 10 MG TABLET - [id number] 2 MG-30 MG-10 MG/5 ML ORAL SYRUP - AZITHROMYCIN 250 MG TABLET Goldy Zafar CNP documented in this encounter [facility] 05-13-2024 Procedure anesthe fatoumata Narrative Procedure Name Responsible Anesthesiologist Anesthesia Start Time Anesthesia Stop Time MR LUMBAR SPINE WO CONTRAST Bryon Méndez MD 05/13/24 1212 05/13/24 1256 Events Date Time Event Comment 05/13/2024 1004 AN Preop Started 1005 1212 An Start 1212 An Start Data 1237 an stop data 1256 An Stop Meds Name Total midazolam (Versed) injection 2 mg/2 mL 2 mg sodium chloride 0.9 % infusion 0 mL * Agents No agents on file. * Blood No blood administrations on file. Lines, Drains, and Airways Type Details Placement Removal Peripheral IV Placement Date: 04/23 11/15; Placement Time: 1159 (PRESENT ON ARRIVAL TO [facility]); Orientation: Posterior, Right; Location: Hand; Removal Date: 05/13/24; Removal Time: 1328 05/13/24 1159 by Yuliet Walker RN 05/13/24 1328 by Yuliet Walker RN [id number]* Perioperative Nursing Note - Yuliet Walker RN - 05/13/2024 1:27 PM EDT Patient ambulated to bathroom and voided. Tolerated well. Discharge instructions reviewed no further questions at this time. [id number] Note* Perioperative Nursing Note - Yuliet Walker RN - 05/13/2024 1:27 PM EDT Patient ambulated to bathroom and voided. Tolerated well. Discharge instructions reviewed no further questions at this time. [id number] Miscellaneous Notes* Perioperative Nursing Note - Yuliet Walker RN - 05/13/2024 1:27 PM EDT Patient ambulated to bathroom and voided. Tolerated well. Discharge instructions reviewed no further questions at this time. * Perioperative Nursing Note - Yuliet Walker RN - 05/13/2024 1:15 PM EDT Patient's at bedside. documented in this e[id number] Note* Perioperative Nursing Note - Yuliet Walker RN - 05/13/2024 1:15 PM EDT Patient's at bedside. [id number]* Perioperative Nursing Note - Yuliet Walker RN - 05/13/2024 1:15 PM EDT Patient's at bedside. [place] [id number] Note* Anesthesia Discharge Note - Wendy Ramos APRN - QUINN - 05/13/2024 1:03 PM EDT Patient: Gladys Alba Procedure Summary Date: 05/13/24 Room / Location: [facility] Anesthesia Start: 1212 Anesthesia Stop: 1256 Procedure: MR LUMBAR SPINE WO CONTRAST Diagnosis: Other congenital malformations of spine, not associated with scoliosis Scheduled Providers: Responsible Provider: Bryon Méndez MD Anesthesia Type: TIVA ASA Status: 2 Anesthesia Type: TIVA Vitals Value Taken Time BP 108/65 05/13/24 1300 Temp 36.1 C (97 F) 05/13/24 1259 Pulse 60 05/13/24 1302 Resp 14 05/13/24 1259 SpO2 94 % 05/13/24 1302 Vitals shown include unfiled device data. Anesthesia Post Evaluation Patient location during evaluation: PACU Patient participation: complete - patient participated Level of consciousness: awake and alert Pain management: satisfactory to patient Airway patency: patent Dental Injury: no Cardiovascular status: acceptable, blood pressure returned to baseline and hemodynamically stable Respiratory status: acceptable and spontaneous ventilation Hydration status: euvolemic Nausea/Vomiting: controlled No notable events documented. Patient can be discharged once all PACU criteria has been met. [id number] NotePatient: Gladys Alba Procedure Summary Date: 05/13/24 Room / Location: [facility] MRI Anesthesia Start: 1211 Anesthesia Stop: 1255 Procedure: MR LUMBAR SPINE WO CONTRAST Diagnosis: Other congenital malformations of spine, not associated with scoliosis Scheduled Providers: Responsible Provider: Bryon Méndez MD Anesthesia Type: TIVA ASA Status: 2 Anesthesia Type: TIVA Vitals Value Taken Time BP 108/65 05/13/24 1300 Temp 36.1 ?C (97 ?F) 05/13/24 1259 Pulse 60 05/13/24 1302 Resp 14 05/13/24 1259 SpO2 94 % 05/13/24 1302 Vitals shown include unfiled device data. Anesthesia Post Evaluation Patient location during evaluation: PACU Patient participation: complete - patient participated Level of consciousness: awake and alert Pain management: satisfactory to patient Airway patency: patent Dental Injury: no Cardiovascular status: acceptable, blood pressure returned to baseline and hemodynamically stable Respiratory status: acceptable and spontaneous ventilation Hydration status: euvolemic Nausea/Vomiting: controlled No notable events documented. Patient can be discharged once all PACU criteria has been met.[facility]08-22-2024 Anesthesiology Postoperative evaluation and management note * Anesthesia Postprocedure Evaluation - ESTHER Pinzon CRNA - 05/13/2024 1:03 PM EDT Patient: Gladys Alba Procedure Summary Date: 05/13/24 Room / Location: [facility] MRI Anesthesia Start: 1211 Anesthesia Stop: 1255 Procedure: MR LUMBAR SPINE WO CONTRAST Diagnosis: Other congenital malformations of spine, not associated with scoliosis Scheduled Providers: Responsible Provider: Bryon Méndez MD Anesthesia Type: TIVA ASA Status: 2 Anesthesia Type: TIVA Vitals Value Taken Time BP 108/65 05/13/24 1300 Temp 36.1 C (97 F) 05/13/24 1259 Pulse 60 05/13/24 1302 Resp 14 05/13/24 1259 SpO2 94 % 05/13/24 1302 Vitals shown include unfiled device data. Anesthesia Post Evaluation Patient location during evaluation: PACU Patient participation: complete - patient participated Level of consciousness: awake and alert Pain management: satisfactory to patient Multimodal analgesia pain management approach Airway patency: patent Two or more strategies used to mitigate risk of obstructive sleep apnea Cardiovascular status: acceptable and hemodynamically stable Respiratory status: acceptable Hydration status: acceptable No notable events documented. MIPS #430 PONV Patient did not receive an inhalational anesthetic (XX430) MIPS # 424 Perioperative Temperature Management Anesthesia time was less than 60 minutes (4256F) MIPS #477 Multimodal Pain Management Not emergent case Patient was not administered multimodal pain management (G2149) Patient reports no pain in PACU (G2149) MIPS #404 Anesthesiology Smoking Abstinence The patient is not a current smoker (e.g. cigarette, cigar, pipe, e- cigarette/vaping/marijuana) If no stop here (XX404) I completed my handoff to the receiving clinician during which we: 1. Identified the patient 2. Identified the responsible provider 3. Reviewed the pertinent medical history 4. Discussed the surgical course 5. Reviewed intra-op anesthesia management and issues during anesthesia 6. Set expectations for post-procedure period 7. Allowed opportunity for questions and acknowledgement of understanding. [employer] Phone: 1(629) 667-340408-22-2024 NotePatient: Gladys Alba Procedure Summary Date: 05/13/24 Room / Location: [facility] Anesthesia Start: 1212 Anesthesia Stop: 1256 Procedure: MR LUMBAR SPINE WO CONTRAST Diagnosis: Other congenital malformations of spine, not associated with scoliosis Scheduled Providers: Responsible Provider: Bryon Méndez MD Anesthesia Type: TIVA ASA Status: 2 Anesthesia Type: TIVA Vitals Value Taken Time BP 108/65 05/13/24 1300 Temp 36.1 ?C (97 ?F) 05/13/24 1259 Pulse 60 05/13/24 1302 Resp 14 05/13/24 1259 SpO2 94 % 05/13/24 1302 Vitals shown include unfiled device data. Anesthesia Post Evaluation Patient location during evaluation: PACU Patient participation: complete - patient participated Level of consciousness: awake and alert Pain management: satisfactory to patient Multimodal analgesia pain management approach Airway patency: patent Two or more strategies used to mitigate risk of obstructive sleep apnea Cardiovascular status: acceptable and hemodynamically stable Respiratory status: acceptable Hydration status: acceptable No notable events documented. MIPS #430 PONV Patient did not receive an inhalational anesthetic (XX430) MIPS # 424 Perioperative Temperature Management Anesthesia time was less than 60 minutes (4256F) MIPS #477 Multimodal Pain Management Not emergent case Patient was not administered multimodal pain management (G2149) Patient reports no pain in PACU (G2149) MIPS #404 Anesthesiology Smoking Abstinence The patient is not a current smoker (e.g. cigarette, cigar, pipe, e-cigarette/vaping/marijuana) If no stop here (XX404) I completed my handoff to the receiving clinician during which we: 1. Identified the patient 2. Identified the responsible provider 3. Reviewed the pertinent medical history 4. Discussed the surgical course 5. Reviewed intra-op anesthesia management and issues during anesthesia 6. Set expectations for post-procedure period 7. Allowed opportunity for questions and acknowledgement of understanding.[facility]08-22-2024 Miscellaneous Notes* Anesthesia Discharge Note - Wendy Ramos APRN - TROLLEY CAR OPERATOR - 05/13/2024 1:03 PM EDT Patient: Gladys Alba Procedure Summary Date: 05/13/24 Room / Location: [facility] Anesthesia Start: 1212 Anesthesia Stop: 1256 Procedure: MR LUMBAR SPINE WO CONTRAST Diagnosis: Other congenital malformations of spine, not associated with scoliosis Scheduled Providers: Responsible Provider: Bryon Méndez MD Anesthesia Type: TIVA ASA Status: 2 Anesthesia Type: TIVA Vitals Value Taken Time BP 108/65 05/13/24 1300 Temp 36.1 C (97 F) 05/13/24 1259 Pulse 60 05/13/24 1302 Resp 14 05/13/24 1259 SpO2 94 % 05/13/24 1302 Vitals shown include unfiled device data. Anesthesia Post Evaluation Patient location during evaluation: PACU Patient participation: complete - patient participated Level of consciousness: awake and alert Pain management: satisfactory to patient Airway patency: patent Dental Injury: no Cardiovascular status: acceptable, blood pressure returned to baseline and hemodynamically stable Respiratory status: acceptable and spontaneous ventilation Hydration status: euvolemic Nausea/Vomiting: controlled No notable events documented. Patient can be discharged once all PACU criteria has been met. documented in this [facility]08-22-2024 Surgical operation note* Anesthesia Postprocedure Evaluation - ESTHER Pinzon CRNA - 05/13/2024 1:03 PM EDT Patient: Gladys Alba Procedure Summary Date: 05/13/24 Room / Location: [facility] MRI Anesthesia Start: 1212 Anesthesia Stop: 1256 Procedure: MR LUMBAR SPINE WO CONTRAST Diagnosis: Other congenital malformations of spine, not associated with scoliosis Scheduled Providers: Responsible Provider: Bryon Méndez MD Anesthesia Type: TIVA ASA Status: 2 Anesthesia Type: TIVA Vitals Value Taken Time BP 108/65 05/13/24 1300 Temp 36.1 C (97 F) 05/13/24 1259 Pulse 60 05/13/24 1302 Resp 14 05/13/24 1259 SpO2 94 % 05/13/24 1302 Vitals shown include unfiled device data. Anesthesia Post Evaluation Patient location during evaluation: PACU Patient participation: complete - patient participated Level of consciousness: awake and alert Pain management: satisfactory to patient Multimodal analgesia pain management approach Airway patency: patent Two or more strategies used to mitigate risk of obstructive sleep apnea Cardiovascular status: acceptable and hemodynamically stable Respiratory status: acceptable Hydration status: acceptable No notable events documented. MIPS #430 PONV Patient did not receive an inhalational anesthetic (XX430) MIPS # 424 Perioperative Temperature Management Anesthesia time was less than 60 minutes (4256F) MIPS #477 Multimodal Pain Management Not emergent case Patient was not administered multimodal pain management (G2149) Patient reports no pain in PACU (G2149) MIPS #404 Anesthesiology Smoking Abstinence The patient is not a current smoker (e.g. cigarette, cigar, pipe, e- cigarette/vaping/marijuana) If no stop here (XX404) I completed my handoff to the receiving clinician during which we: 1. Identified the patient 2. Identified the responsible provider 3. Reviewed the pertinent medical history 4. Discussed the surgical course 5. Reviewed intra-op anesthesia management and issues during anesthesia 6. Set expectations for post-procedure period 7. Allowed opportunity for questions and acknowledgement of understanding. * Anesthesia Preprocedure Evaluation - Bryon Méndez MD - 05/13/2024 10:04 AM EDT Patient: Gladys Alba Procedure Information Date/Time: 05/13/24 1130 Procedure: MR LUMBAR SPINE WO CONTRAST Location: [facility] MRI Relevant Problems No relevant active problems Past Medical History: No past medical history on file. Past Surgical History: No past surgical history on file. Social History: TOBACCO: has no history on file for tobacco use. ETOH: has no history on file for alcohol use. Social History Substance and Sexual Activity Drug Use Not on file Family History: No family history on file. Screening: unknown Clinical information reviewed: Allergies Meds Med Hx Surg Hx Fam Hx Soc Hx Physical Exam Airway Mallampati: II TM distance: >3 FB Neck ROM: full Cardiovascular Dental Pulmonary Abdominal Anesthesia Plan patient is NPO appropriate Any family history or previous problems with anesthesia no ASA 2 TIVA Any family history or previous problems with anesthesia no The patient is not a current smoker. Patient did not smoke on day of procedure. Anesthetic plan and risks discussed with patient. ABI Screening Labs: No results found for: "WBC", "HGB", "HCT", "MCV", "PLT" No results found for: "NA", "K", "CL", "CO2", "BUN", "CREATININE", "GLUCOSE", "CALCIUM", "PROT", "BILIRUBINFL", "ALKPHOS", "AST", "ALT", "EGFR", "GLOB" No echocardiogram results found for the past 14 days No results found for this or any previous visit. Equipment Requests: Additional Equipment Requests documented in this [facility]08-22-2024 History and physical note* Bryon Méndez MD - 05/13/2024 11:30 AM EDT [facility] Comprehensive PreProcedure History and Physical Consults Name: Gladys Alba : 1970 (Age-54 y.o.) Date of Service: Pt seen/examined on 05/13/2024 Chief Complaint: 54 y.o. male who we are asked to see/evaluate Gladys Alba for pre-procedure evaluation prior to MR PROCEDURE - SEDATION. History Of Present Illness: HPI: Here for MRI with sedation Severity: Mild Duration: > one week Review of systems negative except for items below: History reviewed. No pertinent past medical history. There are no problems to display for this patient. History reviewed. No pertinent surgical history. No family history on file. Medications: Prior to Admission medications Not on File Social history and Laboratory Data: No results found for: "HGB", "HCT", "PLT", "WBC", "PROTIME", "INR", "APTT", "NA", "K", "BUN", "CREATININE", "GLUCOSE" Social History Tobacco Use Smoking Status Not on file Smokeless Tobacco Not on file Social History Substance and Sexual Activity Alcohol Use None Social History Substance and Sexual Activity Drug Use Not on file BP 130/84 Pulse 67 Temp 36.1 C (96.9 F) (Temporal) Resp 16 Ht 1.905 m (6' 3") Wt (!) 143 kg (315 lb) SpO2 100% BMI 39.37 kg/m Physical Examination: onstitutional: No apparent distress, well nourished, and in stable condition. Cardiac: Regular rate and rhythm Per PT Abdomen: Soft and nonacute Per Pt Pulmonary: Clear bilaterally and no wheezing Per pt Neuro: Moves extremities X4 with no tremors HEENT: No gross cranial nerve defects and anicteric sclera Skin: Skin warm and dry with no visible rashes Vascular: Adequate perfusion of extremities with no cyanosis Psych: Alert and oriented x3 with appropriate affect Lymphatics: No swelling of arms/hands with no pedal edema Neck: FROM with no JVD Additional Notes:None After review of the medical history and physical assessment, medications, allergies, patient's current medical condition, and labs, this patient is at acceptable risk for the planned procedure at this facility. Electronically signed by: Bryon Méndez MD, MD Date: 05/13/2024 at 10:03 AM [employer] Phone: 1(612) 346-533708-22-2024 History and physical note* Bryon Méndez MD - 05/13/2024 11:30 AM EDT [employer] Comprehensive PreProcedure History and Physical Consults Name: Gladys Alba : 1970 (Age-54 y.o.) Date of Service: Pt seen/examined on 05/13/2024 Chief Complaint: 54 y.o. male who we are asked to see/evaluate Gladys Alba for pre-procedure evaluation prior to MR PROCEDURE - SEDATION. History Of Present Illness: HPI: Here for MRI with sedation Severity: Mild Duration: > one week Review of systems negative except for items below: History reviewed. No pertinent past medical history. There are no problems to display for this patient. History reviewed. No pertinent surgical history. No family history on file. Medications: Prior to Admission medications Not on File Social history and Laboratory Data: No results found for: "HGB", "HCT", "PLT", "WBC", "PROTIME", "INR", "APTT", "NA", "K", "BUN", "CREATININE", "GLUCOSE" Social History Tobacco Use Smoking Status Not on file Smokeless Tobacco Not on file Social History Substance and Sexual Activity Alcohol Use None Social History Substance and Sexual Activity Drug Use Not on file BP 130/84 Pulse 67 Temp 36.1 C (96.9 F) (Temporal) Resp 16 Ht 1.905 m (6' 3") Wt (!) 143 kg (315 lb) SpO2 100% BMI 39.37 kg/m Physical Examination: onstitutional: No apparent distress, well nourished, and in stable condition. Cardiac: Regular rate and rhythm Per PT Abdomen: Soft and nonacute Per Pt Pulmonary: Clear bilaterally and no wheezing Per pt Neuro: Moves extremities X4 with no tremors HEENT: No gross cranial nerve defects and anicteric sclera Skin: Skin warm and dry with no visible rashes Vascular: Adequate perfusion of extremities with no cyanosis Psych: Alert and oriented x3 with appropriate affect Lymphatics: No swelling of arms/hands with no pedal edema Neck: FROM with no JVD Additional Notes:None After review of the medical history and physical assessment, medications, allergies, patient's current medical condition, and labs, this patient is at acceptable risk for the planned procedure at this facility. Electronically signed by: Bryon Méndez MD, MD Date: 05/13/2024 at 10:03 AM documented in this [facility]08-22-2024 [facility] Comprehensive PreProcedure History and Physical Consults Name: Gladys Alba : 1970 (Age-54 y.o.) Date of Service: Pt seen/examined on 05/13/2024 Chief Complaint: 54 y.o. male who we are asked to see/evaluate Gladys Alba for pre-procedure evaluation prior to MR PROCEDURE - SEDATION. History Of Present Illness: HPI: Here for MRI with sedation Severity: Mild Duration: > one week Review of systems negative except for items below: History reviewed. No pertinent past medical history. There are no problems to display for this patient. History reviewed. No pertinent surgical history. No family history on file. Medications: Prior to Admission medications Not on File Social history and Laboratory Data: No results found for: "HGB", "HCT", "PLT", "WBC", "PROTIME", "INR", "APTT", "NA", "K", "BUN", "CREATININE", "GLUCOSE" Social History Tobacco Use Smoking Status Not on file Smokeless Tobacco Not on file Social History Substance and Sexual Activity Alcohol Use None Social History Substance and Sexual Activity Drug Use Not on file BP 130/84 Pulse 67 Temp 36.1 ?C (96.9 ?F) (Temporal) Resp 16 Ht 1.905 m (6' 3") Wt (!) 143 kg (315 lb) SpO2 100% BMI 39.37 kg/m? Physical Examination: onstitutional: No apparent distress, well nourished, and in stable condition. Cardiac: Regular rate and rhythm Per PT Abdomen: Soft and nonacute Per Pt Pulmonary: Clear bilaterally and no wheezing Per pt Neuro: Moves extremities X4 with no tremors HEENT: No gross cranial nerve defects and anicteric sclera Skin: Skin warm and dry with no visible rashes Vascular: Adequate perfusion of extremities with no cyanosis Psych: Alert and oriented x3 with appropriate affect Lymphatics: No swelling of arms/hands with no pedal edema Neck: FROM with no JVD Additional Notes:None After review of the medical history and physical assessment, medications, allergies, patient's current medical condition, and labs, this patient is at acceptable risk for the planned procedure at this facility. Electronically signed by: Bryon Méndez MD MD Date: 05/13/2024 at 10:03 [facility]08-22-2024 Anesthesiology Preoperative evaluation and management note* Anesthesia Preprocedure Evaluation - Bryon Méndez MD - 05/13/2024 10:04 AM EDT Patient: Gladys Alba Procedure Information Date/Time: 05/13/24 1130 Procedure: MR LUMBAR SPINE WO CONTRAST Location: [facility] MRI Relevant Problems No relevant active problems Past Medical History: No past medical history on file. Past Surgical History: No past surgical history on file. Social History: TOBACCO: has no history on file for tobacco use. ETOH: has no history on file for alcohol use. Social History Substance and Sexual Activity Drug Use Not on file Family History: No family history on file. Screening: unknown Clinical information reviewed: Allergies Meds Med Hx Surg Hx Fam Hx Soc Hx Physical Exam Airway Mallampati: II TM distance: >3 FB Neck ROM: full Cardiovascular Dental Pulmonary Abdominal Anesthesia Plan patient is NPO appropriate Any family history or previous problems with anesthesia no ASA 2 TIVA Any family history or previous problems with anesthesia no The patient is not a current smoker. Patient did not smoke on day of procedure. Anesthetic plan and risks discussed with patient. ABI Screening Labs: No results found for: "WBC", "HGB", "HCT", "MCV", "PLT" No results found for: "NA", "K", "CL", "CO2", "BUN", "CREATININE", "GLUCOSE", "CALCIUM", "PROT", "BILIRUBINFL", "ALKPHOS", "AST", "ALT", "EGFR", "GLOB" No echocardiogram results found for the past 14 days No results found for this or any previous visit. Equipment Requests: Additional Equipment Requests [employer] Work Phone: 1(371) 765-561108-22-2024 NotePatient: Gladys Alba Procedure Information Date/Time: 05/13/24 1130 Procedure: MR LUMBAR SPINE WO CONTRAST Location: [facility] MRI Relevant Problems No relevant active problems Past Medical History: No past medical history on file. Past Surgical History: No past surgical history on file. Social History: TOBACCO: has no history on file for tobacco use. ETOH: has no history on file for alcohol use. Social History Substance and Sexual Activity Drug Use Not on file Family History: No family history on file. Screening: unknown Clinical information reviewed: Allergies Meds Med Hx Surg Hx Fam Hx Soc Hx Physical Exam Airway Mallampati: II TM distance: >3 FB Neck ROM: full Cardiovascular Dental Pulmonary Abdominal Anesthesia Plan patient is NPO appropriate Any family history or previous problems with anesthesia no ASA 2 TIVA Any family history or previous problems with anesthesia no The patient is not a current smoker. Patient did not smoke on day of procedure. Anesthetic plan and risks discussed with patient. ABI Screening Labs: No results found for: "WBC", "HGB", "HCT", "MCV", "PLT" No results found for: "NA", "K", "CL", "CO2", "BUN", "CREATININE", "GLUCOSE", "CALCIUM", "PROT", "BILIRUBINFL", "ALKPHOS", "AST", "ALT", "EGFR", "GLOB" No echocardiogram results found for the past 14 days No results found for this or any previous visit. Equipment Requests: [facility] [id number] Note* Care Coordination - Kathryn Akbar RN - 04/05/2024 9:42 AM EDT Spoke with patient. Patient head to reschedule appointment. Reviewed instructions for procedure. Aware of arrival time at 0930 am to Same Day Surgery (SDS) on 05/13/24, nothing to eat after 0000, may have clear liquids (black coffee, tea, juices without pulp, gatorade, gingerale or water) up until 2 hours prior to procedure, and call back # for questions and/or concerns. It is ok to take your morning medications except blood thinners as discussed with ordering physician. If you are taking any medication for diabetes, please discuss with your physician for instructions to follow prior to the scheduled procedure since you will not be eating at least 8 hours prior to the procedure. Will need a responsible adult family member or friend to drive you home after the procedure is completed. May not use public transportation unless accompanied by a responsible adult family member or friend. Questions answered. Verbalized understanding. Directions given for Same Day Surgery. Follow signs around the hospital to "Main Entrance" which islocated at [address]" from [place]. You may use [employer]. Each patient to receive one validation ticket for [employer]. It is also possible to park in the Main Parking Garage. Proceed to bridge into hospital and check in with [facility] Day Surgery. [id number] NoteSpoke with patient. Patient head to reschedule appointment. Reviewed instructions for procedure. Aware of arrival time at 0930 am to Same Day Surgery (SDS) on 05/13/24, nothing to eat after 0000, may have clear liquids (black coffee, tea, juices without pulp, gatorade, gingerale or water) up until 2 hours prior to procedure, and call back # for questions and/or concerns. It is ok to take your morning medications except blood thinners as discussed with ordering physician. If you are taking any medication for diabetes, please discuss with your physician for instructions to follow prior to the scheduled procedure since you will not be eating at least 8 hours prior to the procedure. Will need a responsible adult family member or friend to drive you home after the procedure is completed. May not use public transportation unless accompanied by a responsible adult family member or friend. Questions answered. Verbalized understanding. Directions given for Same Day Surgery. Follow signs around the hospital to "Main Entrance" which is located at [address] onto [address]" from [place]. You may use [employer]. Each patient to receive one validation ticket for [employer]. It is also possible to park in the Main Parking Garage. Proceed to bridge into hospital and check in with Same Day Surgery.[facility]07-15-2024 Miscellaneous Notes* Care Coordination - Kathryn Akbar RN - 04/05/2024 9:42 AM EDT Spoke with patient. Patient head to reschedule appointment. Reviewed instructions for procedure. Aware of arrival time at 0930 am to Same Day Surgery (SDS) on 05/13/24, nothing to eat after 0000, may have clear liquids (black coffee, tea, juices without pulp, gatorade, gingerale or water) up until 2 hours prior to procedure, and call back # for questions and/or concerns. It is ok to take your morning medications except blood thinners as discussed with ordering physician. If you are taking any medication for diabetes, please discuss with your physician for instructions to follow prior to the scheduled procedure since you will not be eating at least 8 hours prior to the procedure. Will need a responsible adult family member or friend to drive you home after the procedure is completed. May not use public transportation unless accompanied by a responsible adult family member or friend. Questions answered. Verbalized understanding. Directions given for Same Day Surgery. Follow signs around the hospital to "Main Entrance" which islocated at [address] Turn onto "[address]" from [facility]. You may use [employer]. Each patient to receive one validation ticket for [employer]. It is also possible to park in the Main Parking Garage. Proceed to bridge into hospital and check in with Same Day Surgery. documented in this [facility]07-09-2024 Note* Care Coordination - Kathryn Akbar RN - 03/30/2024 1:28 PM EDT Spoke with patient. Reviewed instructions for procedure. Aware of arrival time at 0600 am to Same Day Surgery (SDS) on 04/07/24, nothing to eat after 0000, may have clear liquids (black coffee, tea, juices without pulp, gatorade, gingerale or water) up until 2 hours prior to procedure, and call back # for questions and/or concerns. It is ok to take your morning medications except blood thinners as discussed with ordering physician. If you are taking any medication for diabetes, please discuss with your physician for instructions to follow prior to the scheduled procedure since you will not be eating at least 8 hours prior to the procedure. Will need a responsible adult family member or friend to drive you home after the procedure is completed. May not use public transportation unless accompanied by a responsible adult family member or friend. Questions answered. Verbalized understanding. Directions given for Same Day Surgery. Follow signs around the hospital to "Main Entrance" which islocated at [address] from [address]. You may use [employer]. Each patient to receive one validation ticket for [employer]. It is also possible to park in the Main Parking Garage. Proceed to bridge into hospital and check in with Same Day Surgery. [facility] [id number] NoteSpoke with patient. Reviewed instructions for procedure. Aware of arrival time at 0600 am to Same Day Surgery (SDS) on 04/07/24, nothing to eat after 0000, may have clear liquids (black coffee, tea, juices without pulp, gatorade, gingerale or water) up until 2 hours prior to procedure, and call back # for questions and/or concerns. It is ok to take your morning medications except blood thinners as discussed with ordering physician. If you are taking any medication for diabetes, please discuss with your physician for instructions to follow prior to the scheduled procedure since you will not be eating at least 8 hours prior to the procedure. Will need a responsible adult family member or friend to drive you home after the procedure is completed. May not use public transportation unless accompanied by a responsible adult family member or friend. Questions answered. Verbalized understanding. Directions given for Same Day Surgery. Follow signs around the hospital to "Main Entrance" which is located at [address]" from [address]. You may use [employer]. Each patient to receive one validation ticket for [employer]. It is also possible to park in the Main Parking Garage. Proceed to bridge into hospital and check in with Same Day Surgery.[facility]07-09-2024 Miscellaneous Notes* Care Coordination - Kathryn Akbar RN - 03/30/2024 1:28 PM EDT Spoke with patient. Reviewed instructions for procedure. Aware of arrival time at 0600 am to Same Day Surgery (SDS) on 04/07/24, nothing to eat after 0000, may have clear liquids (black coffee, tea, juices without pulp, gatorade, gingerale or water) up until 2 hours prior to procedure, and call back # for questions and/or concerns. It is ok to take your morning medications except blood thinners as discussed with ordering physician. If you are taking any medication for diabetes, please discuss with your physician for instructions to follow prior to the scheduled procedure since you will not be eating at least 8 hours prior to the procedure. Will need a responsible adult family member or friend to drive you home after the procedure is completed. May not use public transportation unless accompanied by a responsible adult family member or friend. Questions answered. Verbalized understanding. Directions given for Same Day Surgery. Follow signs around the hospital to "Main Entrance" which islocated at [address] onto "[address]" from [address]. You may use [employer]. Each patient to receive one validation ticket for [employer]. It is also possible to park in the Main Parking Garage. Proceed to bridge into hospital and check in with Same Day Surgery. documented in this [facility]06-21-2024 Note* Care Coordination - Nancy Vincent RN - 03/12/2024 11:17 AM EDT Patient returned call. Reviewed instructions for procedure. Aware of arrival time at 9:30 am to Same Day Surgery (SDS) on 03/18/24, nothing to eat after midnight, and may drink water or black coffee up until 2 hours prior to the procedure. Medications reviewed and it is ok to take your morning medications. Will need a responsible person to drive you home after the procedure is completed. May not use public transportation unless accompanied by a responsible adult family member or friend. Questions answered. Verbalized understanding. Directions given for Same Day Surgery. Follow signs around the hospital to "Main Entrance" which islocated at [address] onto "[address]" from [place]. You may use [employer]. Each patient to receive one validation ticket for [employer]. It is also possible to park in the Main Parking Garage. Proceed to bridge into hospital and check in with Same Day Surgery. [facility] [id number] NotePatient returned call. Reviewed instructions for procedure. Aware of arrival time at 9:30 am to Same Day Surgery (SDS) on 03/18/24, nothing to eat after midnight, and may drink water or black coffee up until 2 hours prior to the procedure. Medications reviewed and it is ok to take your morning medications. Will need a responsible person to drive you home after the procedure is completed. May not use public transportation unless accompanied by a responsible adult family member or friend. Questions answered. Verbalized understanding. Directions given for Same Day Surgery. Follow signs around the hospital to "Main Entrance" which is located at [address] onto "[address]" from [place]. You may use [employer]. Each patient to receive one validation ticket for [employer]. It is also possible to park in the Main Parking Garage. Proceed to bridge into hospital and check in with Same Day Surgery.[facility]06-21-2024 Miscellaneous Notes* Care Coordination - Nancy Vincent RN - 03/12/2024 11:17 AM EDT Patient returned call. Reviewed instructions for procedure. Aware of arrival time at 9:30 am to Same Day Surgery ([facility]) on 03/18/24, nothing to eat after midnight, and may drink water or black coffee up until 2 hours prior to the procedure. Medications reviewed and it is ok to take your morning medications. Will need a responsible person to drive you home after the procedure is completed. May not use public transportation unless accompanied by a responsible adult family member or friend. Questions answered. Verbalized understanding. Directions given for Same Day Surgery. Follow signs around the hospital to "Main Entrance" which islocated at [address] onto [address]" from [place]. You may use [employer]. Each patient to receive one validation ticket for [employer]. It is also possible to park in the Main Parking Garage. Proceed to bridge into hospital and check in with Same Day Surgery. documented in this [facility]06-20-2024 Note* Care Coordination - Kavya Lane RN - 03/11/2024 2:07 PM EDT Left message. Reviewed instructions for procedure. Aware of arrival time at 9:30 am to Same Day Surgery (SDS) on 03-18-24, nothing to eat after midnight, may have clear liquids (black coffee, tea, juices without pulp, gatorade, gingerale or water) up until 2 hours prior to procedure, and call back # for questionsand/or concerns. Please call to discuss medications as there are some medications that cannot be taken prior to sedation cases. If you are taking any medication for diabetes, please discuss with your physician for instructions to follow prior to the scheduled procedure since you will not be eating at least 8 hours prior to the procedure. Will need a responsible adult family member or friend to drive you home after the procedure is completed. May not use public transportation unless accompanied by a responsible adult family member or friend. Directions given for Same Day Surgery. Follow signs around the hospital to "Main Entrance" which islocated at [address] Turn onto "[address]" from [address]. You may use [employer]. Each patient to receive one validation ticket for [employer]. It is also possible to park in the Main Parking Garage. Proceed to bridge into hospital and check in with Same Day Surgery. [id number] NoteLeft message. Reviewed instructions for procedure. Aware of arrival time at 9:30 am to Same Day Surgery (SDS) on 03-18-24, nothing to eat after midnight, may have clear liquids (black coffee, tea, juices without pulp, gatorade, gingerale or water) up until 2 hours prior to procedure, and call back # for questions and/or concerns. Please call to discuss medications as there are some medications that cannot be taken prior to sedation cases. If you are taking any medication for diabetes, please discuss with your physician for instructions to follow prior to the scheduled procedure since you will not be eating at least 8 hours prior to the procedure. Will need a responsible adult family member or friend to drive you home after the procedure is completed. May not use public transportation unless accompanied by a responsible adult family member or friend. Directions given for Same Day Surgery. Follow signs around the hospital to "Main Entrance" which is located at [address] Turn onto "[address]" from [place]. You may use [employer]. Each patient to receive one validation ticket for [employer]. It is also possible to park in the Main Parking Garage. Proceed to bridge into hospital and check in with Same Day Surgery.[facility]06-20-2024 Miscellaneous Notes* Care Coordination - Kavya Lane RN - 03/11/2024 2:07 PM EDT Left message. Reviewed instructions for procedure. Aware of arrival time at 9:30 am to Same Day Surgery (SDS) on 03-18-24, nothing to eat after midnight, may have clear liquids (black coffee, tea, juices without pulp, gatorade, gingerale or water) up until 2 hours prior to procedure, and call back # for questionsand/or concerns. Please call to discuss medications as there are some medications that cannot be taken prior to sedation cases. If you are taking any medication for diabetes, please discuss with your physician for instructions to follow prior to the scheduled procedure since you will not be eating at least 8 hours prior to the procedure. Will need a responsible adult family member or friend to drive you home after the procedure is completed. May not use public transportation unless accompanied by a responsible adult family member or friend. Directions given for Same Day Surgery. Follow signs around the hospital to "Main Entrance" which islocated at [address] onto "[address]" from [place]. You may use [employer]. Each patient to receive one validation ticket for [employer]. It is also possible to park in the Main Parking Garage. Proceed to bridge into hospital and check in with Same Day Surgery. documented in this [facility]05-02-2023 NoteHNO ID: [id number] Author: Artie Velez PT Service: ? Author Type: Physical Therapist Type: Progress Notes Filed: 01/21/2023 12:47 PM Note Text: 01/21/2023 [facility] PHYSICAL THERAPY DISCONTINUANCE OF CARE Plan of Care Period: Start of Care Date: 09/10/22 Last Visit Date: 11/12/2022 Therapy Program: The following is a summary of the interventions provided for this episode of care; Therapeutic exercise, Manual therapy, Self-shelter management, and Patient/Family/Caregiver Education Assessment: The following is the goal status: Goals updated 11/12/2022 Goals for Episode of Care: created on 09/10/22 through Pt will report no pain with work duties - Not able to assess yet [place] in home exercise program. - Met so far Perform reaching above head and behind back without pain. - Progressing, will continue Increase ROM of L shoulder to WNL for return to PLOF - Progressing, will continue Increased strength of L shoulder to 5/5 for lifting objects overhead - Progressing will continue Patient Goals: Return to PLOF Based on the most recent progress report, patient was progressing as expected toward functional goals based on home exercise program compliance, pain levels, documented subjective information on progress, and appointment compliance. Reason for Discontinuation of Care: Patient has not returned to therapy or scheduled additional follow-up appointments. Artie Velez [facility]02-21-2023 NoteHNO ID: [id number] Author: Artie Velez PT Service: ? Author Type: Physical Therapist Type: Progress Notes Filed: 11/12/2022 10:29 AM Note Text: Episode Visit Count: 7 Therapist That Will Accept/Oversee The Plan Of Care: Artie Velez Start of Care Date: 09/10/22 Onset Date: [birth year] Patient Identified by Name and Date of : Yes REHABILITATION AND SPORTS THERAPY PHYSICAL THERAPY PROGRESS REPORT PLAN OF CARE UPDATE: Assessment: Gladys Alba demonstrates difficulty with reaching behind back, reaching overhead, and use hand with arm at shoulder level and improvements in shoulder ROM and strength. He hasprogressed toward goals. Patient continues to present with impairments in independence in exercise, overall function, range of motion, strength, and pain levels that interfere with reaching behind back, reaching overhead . Current prognosis is Good due to: current objective clinical presentation . He will benefit from continued skilled therapy services to meet the updated goals for this plan of care as noted below. Goals updated 11/12/2022 Goals for Episode of Care: created on 09/10/22 through Pt will report no pain with work duties - Not able to assess yet [place] in home exercise program. - Met so far Perform reaching above head and behind back without pain. - Progressing, will continue Increase ROM of L shoulder to WNL for return to PLOF - Progressing, will continue Increased strength of L shoulder to 5/5 for lifting objects overhead - Progressing will continue Patient Goals: Return to PLOF Patient Goals: Return to PLOF Planned Interventions, Frequency, and Duration: 1x/week, 4 weeks Total Number of Visits Planned: 4 Patient to be seen for Therapeutic exercise (74440), Neuromuscular re-education (51959), Manual therapy (96345), Self-shelter management ([id number]), Patient/Family/Caregiver Education PLAN FOR NEXT VISIT: Shoulder mobility exercises and shoulder isometrics SUBJECTIVE: Patient Reason for Visit: New orders for focusing on isometrics. Does not feel the strengthening was making him sore but more from doing a lot around the house. Patient Goals: Return to PLOF Functional Limitations: reaching behind back, reaching overhead Prior Level of Function: Independent without limitations Intake Information: Prescription present Previous Treatment: Ice , Pain meds Falls Interview: No positive findings with falls interview Pain: Pain Pain Level: 1 Pain Location: Shoulder - Left Description: Tightness Post Treatment Pain Post Treatment Pain Location: Shoulder - Left PROMIS Scales Higher is Better 10/05/2021 11/27/2021 02/11/2022 Phys Func - Score - - 41 (mild dysfunction) Phys Func - Percentile - - 18 % Social Roles - Score - - 51 (within normal limits) Social Role - Percentile - - 54 % GH Physical - Score Incomplete 54.1 (Very Good) - GH Physical - Percentile - 66 % - GH Mental - Score 43.5 (Good) 41.1 (Good) - GH Mental - Percentile 26 % 19 % - T-scores: mean of general population = 50. 5 points is clinically meaningfully difference Percentiles provide an indication of how the patient's score ranks in relation to the general population. Higher percentile rankings indicate better function/quality of life. 50th percentile is the average of the general population and indicates half of respondents had a worse score. Lower is Better 02/11/2022 Fatigue - Score 51 (within normal limits) Fatigue - Percentile 46 % T-scores: mean of general population = 50. 5 points is clinically meaningfully difference Percentiles provide an indication of how the patient's score ranks in relation to the general population. Higher percentile rankings indicate better function/quality of life. 50th percentile is the average of the general population and indicates half of respondents had a worse score. OBJECTIVE MEASURES WITH LEVEL OF FUNCTION: UE AROM L Shoulder Extension: 50 Degrees L Shoulder Flex: 170 Degrees (Pain around 90-125) L Shoulder External Rotation: (WNL with arm at side) UE and Cervical Strength Strength Tested: Shoulder All L Shoulder Flexion: 4/5 L Shoulder Internal Rotation: 5/5 L Shoulder External Rotation: 5/5 TREATMENT: Therapeutic Exercise: 1: All objective measures taken this session 2: Supine shoulder flexion x 10 3: Standing shoulder abd iso x 10 Skilled Intervention: Patient was educated in proper exercise technique and purpose for exercises. Provided written instruction for home exercise program to facilitate proper performance and compliance. Correct performance of therapeutic exercises was facilitated with verbal and visual cuing. Billing Therapeutic Exercise Treatment Minutes: 35 Manual TherapyTreatment Minutes: 5 Total Treatment Time Minutes (timed/untimed): 40 Artie Velez, [facility]02-21-2023 History of Present illness Narrative* Artie Velez, PT - 11/12/2022 9:35 AM EST Episode Visit Count: 7 Therapist That Will Accept/Oversee The Plan Of Care: Artie Velez Start of Care Date: 09/10/22 Onset Date: [birth year] Patient Identified by Name and Date of : Yes REHABILITATION AND SPORTS THERAPY PHYSICAL THERAPY PROGRESS REPORT PLAN OF CARE UPDATE: Assessment: Gladys Alba demonstrates difficulty with reaching behind back, reaching overhead, anduse hand with arm at shoulder level and improvements in shoulder ROM and strength. He hasprogressedtoward goals. Patient continues to present with impairments in independence in exercise, overall function, range of motion, strength, and pain levels that interfere with reaching behind back, reaching overhead . Current prognosis is Good due to: current objective clinical presentation . He will benefit from continued skilled therapy services to meet the updated goals for this plan of care as noted below. Goals updated 11/12/2022 Goals for Episode of Care: created on 09/10/22 through Pt will report no pain with work duties - Not able to assess yet [place] in home exercise program. - Met so far Perform reaching above head and behind back without pain. - Progressing, will continue Increase ROM of L shoulder to WNL for return to PLOF - Progressing, will continue Increased strength of L shoulder to 5/5 for lifting objects overhead - Progressing will continue Patient Goals: Return to PLOF Patient Goals: Return to PLOF Planned Interventions, Frequency, and Duration: 1x/week, 4 weeks Total Number of Visits Planned: 4 Patient to be seen for Therapeutic exercise (88993), Neuromuscular re-education (60055), Manual therapy ([id number]), Self-shelter management ([id number]), Patient/Family/Caregiver Education PLAN FOR NEXT VISIT: Shoulder mobility exercises and shoulder isometrics SUBJECTIVE: Patient Reason for Visit: New orders for focusing on isometrics. Does not feel the strengthening was making him sore but more from doing a lot around the house. Patient Goals: Return to PLOF Functional Limitations: reaching behind back, reaching overhead Prior Level of Function: Independent without limitations Intake Information: Prescription present Previous Treatment: Ice , Pain meds Falls Interview: No positive findings with falls interview Pain: Pain Pain Level: 1 Pain Location: Shoulder - Left Description: Tightness Post Treatment Pain Post Treatment Pain Location: Shoulder - Left PROMIS Scales Higher is Better 10/05/2021 11/27/2021 02/11/2022 Phys Func - Score - - 41 (mild dysfunction) Phys Func - Percentile - - 18 % Social Roles - Score - - 51 (within normal limits) Social Role - Percentile - - 54 % GH Physical - Score Incomplete 54.1 (Very Good) - GH Physical - Percentile - 66 % - GH Mental - Score 43.5 (Good) 41.1 (Good) - GH Mental - Percentile 26 % 19 % - T-scores: mean of general population = 50. 5 points is clinically meaningfully difference Percentiles provide an indication of how the patient's score ranks in relation to the general population. Higher percentile rankings indicate better function/quality of life. 50th percentile is the average of the general population and indicates half of respondents had a worse score. Lower is Better 02/11/2022 Fatigue - Score 51 (within normal limits) Fatigue - Percentile 46 % T-scores: mean of general population = 50. 5 points is clinically meaningfully difference Percentiles provide an indication of how the patient's score ranks in relation to the general population. Higher percentile rankings indicate better function/quality of life. 50th percentile is the average of the general population and indicates half of respondents had a worse score. OBJECTIVE MEASURES WITH LEVEL OF FUNCTION: UE AROM L Shoulder Extension: 50 Degrees L Shoulder Flex: 170 Degrees (Pain around 90-125) L Shoulder External Rotation: (WNL with arm at side) UE and Cervical Strength Strength Tested: Shoulder All L Shoulder Flexion: 4/5 L Shoulder Internal Rotation: 5/5 L Shoulder External Rotation: 5/5 TREATMENT: Therapeutic Exercise: 1: All objective measures taken this session 2: Supine shoulder flexion x 10 3: Standing shoulder abd iso x 10 Skilled Intervention: Patient was educated in proper exercise technique and purpose for exercises. Provided written instruction for home exercise program to facilitate proper performance and compliance. Correct performance of therapeutic exercises was facilitated with verbal and visual cuing. Billing Therapeutic Exercise Treatment Minutes: 35 Manual TherapyTreatment Minutes: 5 Total Treatment Time Minutes (timed/untimed): 40 Artie Velez PT [facility] NoteHNO ID: [id number] Author: Artie Velez PT Service: ? Author Type: Physical Therapist Type: Progress Notes Filed: 10/21/2022 11:31 AM Note Text: Episode Visit Count: 6 Therapist That Will Accept/Oversee The Plan Of Care: Artie Velez Start of Care Date: 09/10/22 Onset Date: [birth year] Patient Identified by Name and Date of : Yes REHABILITATION AND SPORTS THERAPY PHYSICAL THERAPY TREATMENT NOTE ASSESSMENT: Gladys Alba tolerated the session with no issues. He demonstrated improvements in pt's ability to lift more weight without pain. The patient will continue to benefit from ongoing skilled physical therapy to progress toward set goals. PLAN FOR NEXT VISIT: Progress strengthening as tolerated SUBJECTIVE: Patient Reason for Visit: Some soreness in the shoulder. The function is not as close as where it needs to be. Doing more reps vs more weight. Pain: Pain Pain Location: Shoulder - Left Post Treatment Pain Post Treatment Pain Location: Shoulder - Left OBJECTIVE MEASURES WITH LEVEL OF FUNCTION: PROM of L shoulder WNL Painful arc sign LUE Pain at shoulder flexion 95 degrees TREATMENT: Therapeutic Exercise: 1: UBE x 4 min (2 min F and B) (Discussed HEP and subjective taken) 2: Standing scaption 3# x 12 3: Standing scaption 5# x 12 4: Standing scaption 8# 3 x 10 5: Discussed mod to HEP for strengthening progression Skilled Intervention: Patient was educated in proper exercise technique and purpose for exercises. Correct performance of therapeutic exercises was facilitated with verbal and visual cuing. Manual Therapy: 1: AP mobs grade 3 2 x 20 reps Skilled Intervention: Manual skills to improve joint mobility, ROM, and decrease pain. Utilized anatomy knowledge of the therapist, and assessment of patient's response to intervention. Billing Therapeutic Exercise Treatment Minutes: 30 Manual TherapyTreatment Minutes: 8 Total Treatment Time Minutes (timed/untimed): 38 Artie Velez [facility]01-30-2023 History of Present illness Narrative* Artie Velez, PT - 10/21/2022 10:56 AM EST Episode Visit Count: 6 Therapist That Will Accept/Oversee The Plan Of Care: Artie Velez Start of Care Date: 09/10/22 Onset Date: [birth year] Patient Identified by Name and Date of : Yes REHABILITATION AND SPORTS THERAPY PHYSICAL THERAPY TREATMENT NOTE ASSESSMENT: Gladys Terry Alba tolerated the session with no issues. He demonstrated improvements in pt's ability to lift more weight without pain. The patient will continue to benefit from ongoing skilled physical therapy to progress toward set goals. PLAN FOR NEXT VISIT: Progress strengthening as tolerated SUBJECTIVE: Patient Reason for Visit: Some soreness in the shoulder. The function is not as close as where it needs to be. Doing more reps vs more weight. Pain: Pain Pain Location: Shoulder - Left Post Treatment Pain Post Treatment Pain Location: Shoulder - Left OBJECTIVE MEASURES WITH LEVEL OF FUNCTION: PROM of L shoulder WNL Painful arc sign LUE Pain at shoulder flexion 95 degrees TREATMENT: Therapeutic Exercise: 1: UBE x 4 min (2 min F and B) (Discussed HEP and subjective taken) 2: Standing scaption 3# x 12 3: Standing scaption 5# x 12 4: Standing scaption 8# 3 x 10 5: Discussed mod to HEP for strengthening progression Skilled Intervention: Patient was educated in proper exercise technique and purpose for exercises. Correct performance of therapeutic exercises was facilitated with verbal and visual cuing. Manual Therapy: 1: AP mobs grade 3 2 x 20 reps Skilled Intervention: Manual skills to improve joint mobility, ROM, and decrease pain. Utilized anatomy knowledge of the therapist, and assessment of patient's response to intervention. Billing Therapeutic Exercise Treatment Minutes: 30 Manual TherapyTreatment Minutes: 8 Total Treatment Time Minutes (timed/untimed): 38 Artie Velez PT [facility] NoteHNO ID: [id number] Author: Artie Velez PT Service: ? Author Type: Physical Therapist Type: Progress Notes Filed: 10/08/2022 12:00 PM Note Text: Episode Visit Count: 5 Therapist That Will Accept/Oversee The Plan Of Care: Artie Velez Start of Care Date: 09/10/22 Onset Date: [birth year] Patient Identified by Name and Date of : Yes REHABILITATION AND SPORTS THERAPY PHYSICAL THERAPY PROGRESS REPORT PLAN OF CARE UPDATE: Assessment: Gladys Alba demonstrates difficulty with driving holding the steering wheel, decreased strength and decreased sleep quality due to awakening in the morning early with pain and improvements in shoulder ROM, strength, and level of independence with the HEP. He hasprogressed toward goals. Patient continues to present with impairments in ADL's, overall function, range of motion, and strength that interfere with reaching behind back;reaching overhead . Current prognosis is Good due to: current objective clinical presentation . He will benefit from continued skilled therapy services to meet the updated goals for this plan of care as noted below. Goals for Episode of Care: created on 09/10/22 through Pt will report no pain with work duties - Not able to assess yet [place] in home exercise program. - Met so far Perform reaching above head and behind back without pain. - Progressing, will continue Increase ROM of L shoulder to WNL for return to PLOF - Progressing, will continue Increased strength of L shoulder to 5/5 for lifting objects overhead - Progressing will continue Patient Goals: Return to PLOF Patient Goals: Return to PLOF Planned Interventions, Frequency, and Duration: 2x/week, 4 weeks Total Number of Visits Planned: 8 Patient to be seen for Therapeutic exercise ([id number]);Neuromuscular re-education (29237);Manual therapy (52377);Self-shelter management ([id number]);Patient/Family/Caregiver Education PLAN FOR NEXT VISIT: Progress strengthening as tolerated SUBJECTIVE: Patient Reason for Visit: Little sore. Thinking because he drove to [place] and used the L hand a lot. Pt states the exercises are making him a little sore. Patient Goals: Return to PLOF Functional Limitations: reaching behind back;reaching overhead Prior Level of Function: Independent without limitations Intake Information: Prescription present Previous Treatment: Ice ;Pain meds Falls Interview: No positive findings with falls interview Pain: Pain Pain Level: 2 Pain Location: Shoulder - Left Post Treatment Pain Post Treatment Pain Level: No Change Post Treatment Pain Location: Shoulder - Left PROMIS Scales Higher is Better 10/05/2021 11/27/2021 02/11/2022 Phys Func - Score - - 41 (mild dysfunction) Phys Func - Percentile - - 18 % Social Roles - Score - - 51 (within normal limits) Social Role - Percentile - - 54 % GH Physical - Score Incomplete 54.1 (Very Good) - GH Physical - Percentile - 66 % - GH Mental - Score 43.5 (Good) 41.1 (Good) - GH Mental - Percentile 26 % 19 % - T-scores: mean of general population = 50. 5 points is clinically meaningfully difference Percentiles provide an indication of how the patient's score ranks in relation to the general population. Higher percentile rankings indicate better function/quality of life. 50th percentile is the average of the general population and indicates half of respondents had a worse score. Lower is Better 02/11/2022 Fatigue - Score 51 (within normal limits) Fatigue - Percentile 46 % T-scores: mean of general population = 50. 5 points is clinically meaningfully difference Percentiles provide an indication of how the patient's score ranks in relation to the general population. Higher percentile rankings indicate better function/quality of life. 50th percentile is the average of the general population and indicates half of respondents had a worse score. OBJECTIVE MEASURES WITH LEVEL OF FUNCTION: UE AROM L Shoulder Flex: 115 Degrees (More sore today; 175 degrees when lifting straight up) L Shoulder ABduction: 100 Degrees (sore and tight) UE and Cervical Strength Strength Tested: Shoulder All L Shoulder Flexion: 4/5 L Shoulder Internal Rotation: 4+/5 L Shoulder External Rotation: 4+/5 TREATMENT: Therapeutic Exercise: 1: All objective measures taken this session 2: Seated Shoulder bladimir x 2 min into flexion 3: Standing scaption 2# x 10 4: Standing scaption 3# 3 x 12 reps 5: Standing ER GTB 3 x 10 6: Standing IR GTB 3 x 10 reps 7: Standing row BTB 3 x 12 reps Skilled Intervention: Patient was educated in proper exercise technique and purpose for exercises. Skilled judgment was provided in selection of appropriate interventions. Provided written instruction for home exercise program to facilitate proper performance and compliance. Billing Therapeutic Exercise Treatment Minutes: 45 Total Treatment Time Minutes (timed/untimed): 45 Artie Velez [facility]01-17-2023 History of Present illness Narrative* Artie Velez, PT - 10/08/2022 11:02 AM EST Episode Visit Count: 5 Therapist That Will Accept/Oversee The Plan Of Care: Artie Velez Start of Care Date: 09/10/22 Onset Date: [birth year] Patient Identified by Name and Date of : Yes REHABILITATION AND SPORTS THERAPY PHYSICAL THERAPY PROGRESS REPORT PLAN OF CARE UPDATE: Assessment: Gladys Alba demonstrates difficulty with driving holding the steering wheel, decreased strength and decreased sleep quality due to awakening in the morning early with pain and improvements in shoulder ROM, strength, and level of independence with the HEP. He hasprogressed toward goals. Patient continues to present with impairments in ADL's, overall function, range of motion, and strength that interfere with reaching behind back;reaching overhead . Current prognosis is Good due to:current objective clinical presentation . He will benefit from continued skilled therapy services to meet the updated goals for this plan of care as noted below. Goals for Episode of Care: created on 09/10/22 through Pt will report no pain with work duties - Not able to assess yet [place] in home exercise program. - Met so far Perform reaching above head and behind back without pain. - Progressing, will continue Increase ROM of L shoulder to WNL for return to PLOF - Progressing, will continue Increased strength of L shoulder to 5/5 for lifting objects overhead - Progressing will continue Patient Goals: Return to PLOF Patient Goals: Return to PLOF Planned Interventions, Frequency, and Duration: 2x/week, 4 weeks Total Number of Visits Planned: 8 Patient to be seen for Therapeutic exercise (98199);Neuromuscular re-education (85575);Manual therapy (29293);Self-shelter management ([id number]);Patient/Family/Caregiver Education PLAN FOR NEXT VISIT: Progress strengthening as tolerated SUBJECTIVE: Patient Reason for Visit: Little sore. Thinking because he drove to [place] and used the L hand a lot. Pt states the exercises are making him a little sore. Patient Goals: Return to PLOF Functional Limitations: reaching behind back;reaching overhead Prior Level of Function: Independent without limitations Intake Information: Prescription present Previous Treatment: Ice ;Pain meds Falls Interview: No positive findings with falls interview Pain: Pain Pain Level: 2 Pain Location: Shoulder - Left Post Treatment Pain Post Treatment Pain Level: No Change Post Treatment Pain Location: Shoulder - Left PROMIS Scales Higher is Better 10/05/2021 11/27/2021 02/11/2022 Phys Func - Score - - 41 (mild dysfunction) Phys Func - Percentile - - 18 % Social Roles - Score - - 51 (within normal limits) Social Role - Percentile - - 54 % GH Physical - Score Incomplete 54.1 (Very Good) - GH Physical - Percentile - 66 % - GH Mental - Score 43.5 (Good) 41.1 (Good) - GH Mental - Percentile 26 % 19 % - T-scores: mean of general population = 50. 5 points is clinically meaningfully difference Percentiles provide an indication of how the patient's score ranks in relation to the general population. Higher percentile rankings indicate better function/quality of life. 50th percentile is the average of the general population and indicates half of respondents had a worse score. Lower is Better 02/11/2022 Fatigue - Score 51 (within normal limits) Fatigue - Percentile 46 % T-scores: mean of general population = 50. 5 points is clinically meaningfully difference Percentiles provide an indication of how the patient's score ranks in relation to the general population. Higher percentile rankings indicate better function/quality of life. 50th percentile is the average of the general population and indicates half of respondents had a worse score. OBJECTIVE MEASURES WITH LEVEL OF FUNCTION: UE AROM L Shoulder Flex: 115 Degrees (More sore today; 175 degrees when lifting straight up) L Shoulder ABduction: 100 Degrees (sore and tight) UE and Cervical Strength Strength Tested: Shoulder All L Shoulder Flexion: 4/5 L Shoulder Internal Rotation: 4+/5 L Shoulder External Rotation: 4+/5 TREATMENT: Therapeutic Exercise: 1: All objective measures taken this session 2: Seated Shoulder bladimir x 2 min into flexion 3: Standing scaption 2# x 10 4: Standing scaption 3# 3 x 12 reps 5: Standing ER GTB 3 x 10 6: Standing IR GTB 3 x 10 reps 7: Standing row BTB 3 x 12 reps Skilled Intervention: Patient was educated in proper exercise technique and purpose for exercises. Skilled judgment was provided in selection of appropriate interventions. Provided written instruction for home exercise program to facilitate proper performance and compliance. Billing Therapeutic Exercise Treatment Minutes: 45 Total Treatment Time Minutes (timed/untimed): 45 Artie Velez PT [facility] NoteHNO ID: [id number] Author: Artei Velez PT Service: ? Author Type: Physical Therapist Type: Progress Notes Filed: 10/03/2022 8:29 AM Note Text: Episode Visit Count: 4 Therapist That Will Accept/Oversee The Plan Of Care: Artie Velez Start of Care Date: 09/10/22 Onset Date: [birth year]/15/92 Patient Identified by Name and Date of : Yes REHABILITATION AND SPORTS THERAPY PHYSICAL THERAPY TREATMENT NOTE ASSESSMENT: Gladys Alba tolerated the session with no issues. He demonstrated good tolerance to all therapeutic exercises. The patient will continue to benefit from ongoing skilled physical therapy to progress toward set goals. PLAN FOR NEXT VISIT: PRogress shoulder strengthening as tolerated SUBJECTIVE: Patient Reason for Visit: Have been doing the exercises and more work at home with cleaning and moving things. Has woken up in the morning with 8/10 soreness he thinks because he has done too much. Pain: Pain Pain Location: Shoulder - Left OBJECTIVE MEASURES WITH LEVEL OF FUNCTION: UE AROM L Shoulder Flex: 175 Degrees TREATMENT: Therapeutic Exercise: 1: Seated bladimir flexion x 3 min (subjective taken) 2: Standing scaption 1# x 13 reps 3: Standing scaption 2# 2 x 10 reps 4: Reaching 1-5 x 90 sec then x 45 sec 5: Standing row GTB x 15 reps 6: Standing row BTB 2 x 10 reps 7: Press and raise using wand in supine x 10 8: Standing IR and ER OTB 2 x 10 each Skilled Intervention: Patient was educated in proper exercise technique and purpose for exercises. Correct performance of therapeutic exercises was facilitated with verbal and visual cuing. Billing Therapeutic Exercise Treatment Minutes: 43 Total Treatment Time Minutes (timed/untimed): 43 Artie Velez, [facility]01-12-2023 History of Present illness Narrative* Artie Velez, PT - 10/03/2022 7:47 AM EST Episode Visit Count: 4 Therapist That Will Accept/Oversee The Plan Of Care: Artie Velez Start of Care Date: 09/10/22 Onset Date: [birth year]/15/[birth year] Patient Identified by Name and Date of : Yes REHABILITATION AND SPORTS THERAPY PHYSICAL THERAPY TREATMENT NOTE ASSESSMENT: Gladys Alba tolerated the session with no issues. He demonstrated good tolerance to all therapeutic exercises. The patient will continue to benefit from ongoing skilled physical therapyto progress toward set goals. PLAN FOR NEXT VISIT: PRogress shoulder strengthening as tolerated SUBJECTIVE: Patient Reason for Visit: Have been doing the exercises and more work at home with cleaning and moving things. Has woken up in the morning with 8/10 soreness he thinks because he has donetoo much. Pain: Pain Pain Location: Shoulder - Left OBJECTIVE MEASURES WITH LEVEL OF FUNCTION: UE AROM L Shoulder Flex: 175 Degrees TREATMENT: Therapeutic Exercise: 1: Seated bladimir flexion x 3 min (subjective taken) 2: Standing scaption 1# x 13 reps 3: Standing scaption 2# 2 x 10 reps 4: Reaching 1-5 x 90 sec then x 45 sec 5: Standing row GTB x 15 reps 6: Standing row BTB 2 x 10 reps 7: Press and raise using wand in supine x 10 8: Standing IR and ER OTB 2 x 10 each Skilled Intervention: Patient was educated in proper exercise technique and purpose for exercises. Correct performance of therapeutic exercises was facilitated with verbal and visual cuing. Billing Therapeutic Exercise Treatment Minutes: 43 Total Treatment Time Minutes (timed/untimed): 43 Artie Velez PT [facility] NoteHNO ID: [id number] Author: Artie Velez PT Service: ? Author Type: Physical Therapist Type: Progress Notes Filed: 09/25/2022 2:39 PM Note Text: Episode Visit Count: 3 Therapist That Will Accept/Oversee The Plan Of Care: Artie Velez Start of Care Date: 09/10/22 Onset Date: [birth year]/15/92 Patient Identified by Name and Date of : Yes REHABILITATION AND SPORTS THERAPY PHYSICAL THERAPY TREATMENT NOTE ASSESSMENT: Gladys Alba tolerated the session with no issues. He demonstrated good tolerance towards shoulder strengthening exercises performed this session. The patient will continue to benefit from ongoing skilled physical therapy to progress toward set goals. PLAN FOR NEXT VISIT: Progress shoulder strengthening as tolerated. Assess scapular movement with reaching overhead SUBJECTIVE: Patient Reason for Visit: Worked a little bit on the [employer]. The shoulder is sore today. Pain: Pain Pain Location: Shoulder - Left Description: Sore Post Treatment Pain Post Treatment Pain Location: Shoulder - Left OBJECTIVE MEASURES WITH LEVEL OF FUNCTION: UE AROM L Shoulder Flex: 170 Degrees TREATMENT: Therapeutic Exercise: 1: Seated shoulder flexion using bladimir 3 x 10 2: Standing shoulder scaption x 10 3: Standing scaption 1# 3 x 10 4: Standing shoulder ER YTB 3 x 10 5: Standing shoulder IR YTB 3 x 10 6: Standing shoulder hammer curl x 10 then cupinated curl 2 x 10 YTB 7: Prone scapular retractions 2 x 10 reps Skilled Intervention: Patient was educated in proper exercise technique and purpose for exercises. Correct performance of therapeutic exercises was facilitated with verbal and visual cuing. Billing Therapeutic Exercise Treatment Minutes: 39 Total Treatment Time Minutes (timed/untimed): 39 Artie Velez [facility]01-04-2023 History of Present illness Narrative* Artie Velez PT - 09/25/2022 1:56 PM EST Episode Visit Count: 3 Therapist That Will Accept/Oversee The Plan Of Care: Artie Velez Start of Care Date: 09/10/22 Onset Date: [birth year]/15/92 Patient Identified by Name and Date of : Yes REHABILITATION AND SPORTS THERAPY PHYSICAL THERAPY TREATMENT NOTE ASSESSMENT: Gladys Alba tolerated the session with no issues. He demonstrated good tolerance towards shoulder strengthening exercises performed this session. The patient will continue to benefit from ongoing skilled physical therapy to progress toward set goals. PLAN FOR NEXT VISIT: Progress shoulder strengthening as tolerated. Assess scapular movement with reaching overhead SUBJECTIVE: Patient Reason for Visit: Worked a little bit on the [employer]. The shoulder is sore today. Pain: Pain Pain Location: Shoulder - Left Description: Sore Post Treatment Pain Post Treatment Pain Location: Shoulder - Left OBJECTIVE MEASURES WITH LEVEL OF FUNCTION: UE AROM L Shoulder Flex: 170 Degrees TREATMENT: Therapeutic Exercise: 1: Seated shoulder flexion using bladimir 3 x 10 2: Standing shoulder scaption x 10 3: Standing scaption 1# 3 x 10 4: Standing shoulder ER YTB 3 x 10 5: Standing shoulder IR YTB 3 x 10 6: Standing shoulder hammer curl x 10 then cupinated curl 2 x 10 YTB 7: Prone scapular retractions 2 x 10 reps Skilled Intervention: Patient was educated in proper exercise technique and purpose for exercises. Correct performance of therapeutic exercises was facilitated with verbal and visual cuing. Billing Therapeutic Exercise Treatment Minutes: 39 Total Treatment Time Minutes (timed/untimed): 39 Artie Velez PT documented [facility] encounterC[facility]12[facility]27-[facility]22 NoteHNO ID: [id number] Author: Artie Velez PT Service: ? Author Type: Physical Therapist Type: Progress Notes Filed: 09/17/2022 7:43 AM Note Text: Episode Visit Count: 2 Therapist That Will Accept/Oversee The Plan Of Care: Artie Velez Start of Care Date: 09/10/22 Onset Date: [birth year]/15/92 Patient Identified by Name and Date of : Yes REHABILITATION AND SPORTS THERAPY PHYSICAL THERAPY TREATMENT NOTE ASSESSMENT: Gladys Alba tolerated the session with no issues. He demonstrated improvements in shoulder PROM. The patient will continue to benefit from ongoing skilled physical therapy to progress toward set goals. PLAN FOR NEXT VISIT: Progress ROM as tolerated (AAROM) SUBJECTIVE: Patient Reason for Visit: Little sore today. Pt states the exercises are goign well. Pain: Pain Pain Level: 3 Pain Location: Shoulder - Left Description: Sore Post Treatment Pain Post Treatment Pain Location: Shoulder - Left OBJECTIVE MEASURES WITH LEVEL OF FUNCTION: UE AROM L Shoulder Flex: 90 Degrees (AAROM with wand) UE PROM L Shoulder Flex: 165 Degrees (using pulleys) TREATMENT: Therapeutic Exercise: 1: Seated shoulder flexion using bladimir 3 x 10 2: Seated wand flexion x 8 3: Supine wand flexion 3 x 10 4: Standing shoulder IR iso at wall 2 x 10 reps holding 5 sec 5: Standing shoulder ER iso at wall 2 x 10 reps holding 5 sec each 6: Standing shoulder IR iso at wall 2 x 10 reps holding 5 sec each Skilled Intervention: Patient was educated in proper exercise technique and purpose for exercises. Provided written instruction for home exercise program to facilitate proper performance and compliance. Correct performance of therapeutic exercises was facilitated with verbal and visual cuing. Billing Therapeutic Exercise Treatment Minutes: 39 Total Treatment Time Minutes (timed/untimed): 39 Artie Velez [facility]12-20-2022 NoteHNO ID: [id number] Author: Artie Velez PT Service: ? Author Type: Physical Therapist Type: Progress Notes Filed: 09/17/2022 7:15 AM Note Text: Episode Visit Count: 1 Therapist That Will Accept/Oversee The Plan Of Care: Artie Velez Start of Care Date: 09/10/22 Onset Date: [birth year]/15/92 Patient Identified by Name and Date of : Yes REHABILITATION AND SPORTS THERAPY PHYSICAL THERAPY EVALUATION PLAN OF CARE: Assessment: Gladys Alba presents with diagnosis of L shoulder arthrosopic surgery on 09/05/2022 that interferes with reaching behind back;reaching overhead . He presents with impairments in ADL's, independence in exercise, overall function, range of motion, and strength. Prognosis for therapy is Good due to: current objective clinical presentation He will benefit from skilled therapy services to meet the goals established for this plan of care as noted below. Goals for Episode of Care: created on 09/10/22 through Pt will report no pain with work duties [employer] in home exercise program. Perform reaching above head and behind back without pain. Increase ROM of L shoulder to WNL for return to PLOF Increased strength of L shoulder to 5/5 for lifting objects overhead Patient Goals: Return to PLOF Planned Interventions, Frequency, and Duration: Current Frequency: 2x/week Duration: 4 weeks Total Number of Visits Planned: 8 Planned Treatment Interventions: Therapeutic exercise (93586);Neuromuscular re-education (75114);Manual therapy (59895);Self-shelter management ([id number]);Patient/Family/Caregiver Education PLAN FOR NEXT VISIT: Progress exercises per physician's order. PROM for now. Patient demonstrates good understanding of plan of care and treatment. The above goals and plan of care were discussed and agreed upon by patient/family. SUBJECTIVE: Gladys Alba is a 52 year old male seen today for Arthroscopic surgery "cleaning the shoulder up. The shoulder is sore. Pt states that he has not been to the post-op which he will go to friday. No RTC repair. Pt feels weak just like before the surgery. Off work for now. Patient Goals: Return to PLOF Functional Limitations: reaching behind back;reaching overhead Prior Level of Function: Independent without limitations Relevant History Preferred Language: Maltese Intake Information: Prescription present Previous Treatment: Ice ;Pain meds Pain: Pain Pain Level: 4 Pain Location: Shoulder - Left Description: Aching PROMIS Scales Higher is Better 10/05/2021 11/27/2021 02/11/2022 Phys Func - Score - - 41 (mild dysfunction) Phys Func - Percentile - - 18 % Social Roles - Score - - 51 (within normal limits) Social Role - Percentile - - 54 % GH Physical - Score Incomplete 54.1 (Very Good) - GH Physical - Percentile - 66 % - GH Mental - Score 43.5 (Good) 41.1 (Good) - GH Mental - Percentile 26 % 19 % - T-scores: mean of general population = 50. 5 points is clinically meaningfully difference Percentiles provide an indication of how the patient's score ranks in relation to the general population. Higher percentile rankings indicate better function/quality of life. 50th percentile is the average of the general population and indicates half of respondents had a worse score. Lower is Better 02/11/2022 Fatigue - Score 51 (within normal limits) Fatigue - Percentile 46 % T-scores: mean of general population = 50. 5 points is clinically meaningfully difference Percentiles provide an indication of how the patient's score ranks in relation to the general population. Higher percentile rankings indicate better function/quality of life. 50th percentile is the average of the general population and indicates half of respondents had a worse score. OBJECTIVE MEASURES WITH LEVEL OF FUNCTION: Cervical Spine ROM Cervical ROM : Limitation AROM Cervical Flexion AROM: Normal Cervical Extension AROM: Normal Cervical Side-Bend Right AROM: Normal Cervical Side-Bend Left AROM: Normal Cervical Rotation Right AROM: Minimal limitation Cervical Rotation Left AROM: Minimal limitation UE AROM R UE AROM: WNL L Shoulder Flex: 40 Degrees L Shoulder ABduction: 40 Degrees L Shoulder External Rotation: 35 Degrees UE and Cervical Strength L UE Strength: Deferred due to post-op status Education: Education Learning Preferences: Demonstration;Explanation;Performance;Printed Materials Barriers: None Learning/educational needs: Home exercise program;Plan of Care Education Provided: Yes, see treatment interventions for education provided Education Provided To: Patient Education Mode/Type: Demonstration;Explanation/Discussion;Literature/Printed Materials;Performance Response to Education/Teach Back: States/Identifies;Return Demonstration TREATMENT: PT Treatment Interventions: Therapeutic Exercise Evaluation Therapeutic Exercise: 1: Discussed therapy goals, exam findings, and purpose of the HEP. (more content not included)...[facility]12-20-2022 History of Present illness Narrative* Artie Velez, PT - 09/10/2022 4:27 PM EST Episode Visit Count: Visit count could not be calculated. Make sure you are using a visit which is associated with an episode. Therapist That Will Accept/Oversee The Plan Of Care: Artie Velez Start of Care Date: 09/10/22 Onset Date: [birth year]15/[birth year] Patient Identified by Name and Date of : Yes REHABILITATION AND SPORTS THERAPY PHYSICAL THERAPY EVALUATION PLAN OF CARE: Assessment: Gladys Alba presents with diagnosis of L shoulder arthrosopic surgery on 09/05/2022 that interferes with reaching behind back;reaching overhead . He presents with impairments in ADL's, independence in exercise, overall function, range of motion, and strength. Prognosis for therapy is Good due to: current objective clinical presentation He will benefit from skilled therapy services to meet the goals established for this plan of care as noted below. Goals for Episode of Care: created on 09/10/22 through Pt will report no pain with work duties [employer] in home exercise program. Perform reaching above head and behind back without pain. Increase ROM of L shoulder to WNL for return to PLOF Increased strength of L shoulder to 5/5 for lifting objects overhead Patient Goals: Return to PLOF Planned Interventions, Frequency, and Duration: Current Frequency: 2x/week Duration: 4 weeks Total Number of Visits Planned: 8 Planned Treatment Interventions: Therapeutic exercise (99296);Neuromuscular re- education (85912);Manual therapy (70311);Self-shelter management (27236);Patient/Family/Caregiver Education PLAN FOR NEXT VISIT: Progress exercises per physician's order. PROM for now. Patient demonstrates good understanding of plan of care and treatment. The above goals and plan of care were discussed and agreed upon by patient/family. SUBJECTIVE: Gladys Alba is a 52 year old male seen today for Arthroscopic surgery "cleaning the shoulder up. The shoulder is sore. Pt states that he has not been to the post-op which he will go to friday. No RTC repair. Pt feels weak just like before the surgery. Off work for now. Patient Goals: Return to PLOF Functional Limitations: reaching behind back;reaching overhead Prior Level of Function: Independent without limitations Relevant History Preferred Language: Maltese Intake Information: Prescription present Previous Treatment: Ice ;Pain meds Pain: Pain Pain Level: 4 Pain Location: Shoulder - Left Description: Aching PROMIS Scales Higher is Better 10/05/2021 11/27/2021 02/11/2022 Phys Func - Score - - 41 (mild dysfunction) Phys Func - Percentile - - 18 % Social Roles - Score - - 51 (within normal limits) Social Role - Percentile - - 54 % GH Physical - Score Incomplete 54.1 (Very Good) - GH Physical - Percentile - 66 % - GH Mental - Score 43.5 (Good) 41.1 (Good) - GH Mental - Percentile 26 % 19 % - T-scores: mean of general population = 50. 5 points is clinically meaningfully difference Percentiles provide an indication of how the patient's score ranks in relation to the general population. Higher percentile rankings indicate better function/quality of life. 50th percentile is the average of the general population and indicates half of respondents had a worse score. Lower is Better 02/11/2022 Fatigue - Score 51 (within normal limits) Fatigue - Percentile 46 % T-scores: mean of general population = 50. 5 points is clinically meaningfully difference Percentiles provide an indication of how the patient's score ranks in relation to the general population. Higher percentile rankings indicate better function/quality of life. 50th percentile is the average of the general population and indicates half of respondents had a worse score. OBJECTIVE MEASURES WITH LEVEL OF FUNCTION: Cervical Spine ROM Cervical ROM : Limitation AROM Cervical Flexion AROM: Normal Cervical Extension AROM: Normal Cervical Side-Bend Right AROM: Normal Cervical Side-Bend Left AROM: Normal Cervical Rotation Right AROM: Minimal limitation Cervical Rotation Left AROM: Minimal limitation UE AROM R UE AROM: WNL L Shoulder Flex: 40 Degrees L Shoulder ABduction: 40 Degrees L Shoulder External Rotation: 35 Degrees UE and Cervical Strength L UE Strength: Deferred due to post-op status Education: Education Learning Preferences: Demonstration;Explanation;Performance;Printed Materials Barriers: None Learning/educational needs: Home exercise program;Plan of Care Education Provided: Yes, see treatment interventions for education provided Education Provided To: Patient Education Mode/Type: Demonstration;Explanation/Discussion;Literature/Printed Materials;Performance Response to Education/Teach Back: States/Identifies;Return Demonstration TREATMENT: PT Treatment Interventions: Therapeutic Exercise Evaluation Therapeutic Exercise: 1: Discussed therapy goals, exam findings, and purpose of the HEP. 2: Seated shoulder flexion x 10 reps 3: Seated elbow flexion x 5 reps 4: Seated shoulder ER/IR PROM using wand x 10 5: scapular retractions seated x 10 reps Skilled Intervention: Patient was educated in proper exercise technique and purpose for exercises. Provided written instruction for home exercise program to facilitate proper performance and compliance. Correct performance of therapeutic exercises was facilitated with verbal and visual cuing. Billing * Evaluation Low Complexity: 1 Unit Therapeutic Exercise Treatment Minutes: 23 Total Treatment Time Minutes (timed/untimed): 39 Artie Velez PT documented in this encounterC[facility]11-[facility] NotePatient Outreach (ASCIND) GLADYS ALBA ([id number]) 1970 M Date Time Provider Department 07/31/22 KIET VENEGAS During your visit today, we recorded the following information about you: Allergies As of Date: 07/31/2022 Noted Allergy Reaction animal dander [Other] 08/21/2005 5 - Intolerance DUST 08/21/2005 5 - Intolerance GRASS POLLEN 08/21/2005 5 - Intolerance MOLD 08/21/2005 5 - Intolerance POLLEN 08/21/2005 5 - Intolerance TREES 08/21/2005 5 - Intolerance Date Reviewed: 02/07/2022 Reviewed by: Danii Sellers LPN - Fully Assessed Visit Diagnosis:Screening for colon cancer [Z12.11] Order(s):COLONOSCOPY SCREENING [GI51] Order #: [id number] FUTURE Prescriptions as of 08/05/2022 - Zinc 50 mg tab Take 50 mg by mouth once daily. - cholecalciferol (VITAMIN D) 1,000 unit tab tablet Take 1,000 Units by mouth once daily. - Magnesium 250 mg tab Take 250 mg by mouth once daily. - MIKAELA'S WORT ORAL Take by mouth. - ascorbic acid (VITAMIN C ORAL) Take by mouth. - Lactobacillus acidophilus (PROBIOTIC ORAL) Take by mouth. - BIPAP Problem List As Of Date 07/31/2022 Noted Resolved Sebaceous cyst [L72.3] 08/26/2005 02/07/2022 STERILIZATION [Z30.2] 08/04/2006 Sprain of foot, unspecified site [S93.609A] 12/23/2006 02/07/2022 Cellulitis and abscess of trunk [L03.319, L02.2*04/07/2008 02/07/2022 Cellulitis and abscess of leg, except foot [L03*05/03/2008 02/07/2022 Blood in stool [K92.1] 12/16/2008 02/07/2022 Tear of medial cartilage or meniscus of knee, c*01/27/2013 Pain in joint, lower leg [M25.569] 01/27/2013 02/07/2022 Hyperlipidemia, mixed [E78.2] 09/27/2019 Obesity, Class II, BMI 35-39.9 [E66.9] 09/27/2019 Chronic midline low back pain without sciatica *09/27/2019 02/07/2022 Superior glenoid labrum lesion of left shoulder*10/03/2021 Arthritis of left shoulder region [M19.012] 10/03/2021 Impingement syndrome of left shoulder [M75.42] 10/03/2021 Strain of other muscles, fascia and tendons at *10/03/2021 02/07/2022 Loose body of left shoulder [M24.012] 10/03/2021 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 04-02-2022 NoteHNO ID: [id number] Author: Artie Velez PT Service: ? Author Type: Physical Therapist Type: Progress Notes Filed: 04/02/2022 9:45 AM Note Text: Episode Visit Count: 4 Therapist That Will Oversee The Plan Of Care: Artie Velez Start of Care Date: 02/14/22 Onset Date: 02/15/92 Patient Identified by Name and Date of : Yes REHABILITATION AND SPORTS THERAPY PHYSICAL THERAPY DISCONTINUANCE OF CARE PLAN OF CARE UPDATE: Assessment: Gladys Alba is discontinued from Physical Therapy services due to Patient/Clinician mutual decision to discontinue current plan of care. and Pt has not made progress through physical therapy. Patient was seen for 4 visits from Start of Care Date: 02/14/22 to 04/02/2022 and treatment included: Therapeutic exercise and Manual therapy. Goals updated 04/02/2022 Goals for Episode of Care: created on 02/14/22 through 04/11/22 Pt will report improved tolerance to standing in 8 weeks or less - Not Met Pt will demo glute max strength of 5/5 in 8 weeks for improved ability to maintain neutral spine posture - Not Met Patient Goals: Pt wants to keep the pain away SUBJECTIVE: Patient Reason for Visit: Pt states that he has his good days and bad days. Not much has change. Pt may go to spine. Wants to try and get an MRI. Functional Limitations: standing Pain: Pain Pain Level: 2 Pain Location: Low Back/Lumbar Spine - Right Additional Pain Information : Location 2 Pain Level 2: 4 Pain Location 2: Hip - Right PROMIS Scales Higher is Better 10/05/2021 11/27/2021 02/11/2022 Phys Func - Score - - 41 (mild dysfunction) Phys Func - Percentile - - 18 % Social Roles - Score - - 51 (within normal limits) Social Role - Percentile - - 54 % GH Physical - Score Incomplete 54.1 (Very Good) - GH Physical - Percentile - 66 % - GH Mental - Score 43.5 (Good) 41.1 (Good) - GH Mental - Percentile 26 % 19 % - T-scores: mean of general population = 50. 5 points is clinically meaningfully difference Percentiles provide an indication of how the patient's score ranks in relation to the general population. Higher percentile rankings indicate better function/quality of life. 50th percentile is the average of the general population and indicates half of respondents had a worse score. Lower is Better 02/11/2022 Fatigue - Score 51 (within normal limits) Fatigue - Percentile 46 % T-scores: mean of general population = 50. 5 points is clinically meaningfully difference Percentiles provide an indication of how the patient's score ranks in relation to the general population. Higher percentile rankings indicate better function/quality of life. 50th percentile is the average of the general population and indicates half of respondents had a worse score. OBJECTIVE MEASURES WITH LEVEL OF FUNCTION: Posture / Alignment Posture: Fair Lumbar Spine AROM Lumbar Flexion: Normal Lumbar Extension: Normal;Peripheralizing Lumbar R Side-Bend: Minimal limitation;Peripheralizing Lumbar L Side-Bend: Normal Lumbar R Rotation: Minimal limitation;Peripheralizing Lumbar L Rotation: Normal LE AROM R LE AROM: WNL L LE AROM: WNL LE Flexibility Flexibility: Piriformis Flexibility R Hip Flexor Flexibility: WNL L Hip Flexor Flexibility: WNL R Quadriceps Flexibility: WNL L Quadriceps Flexibility: WNL R Piriformis Flexibility: Min tightness L Piriformis Flexibility: WNL LE Strength R LE Strength: Grossly 5/5 L LE Strength: Grossly 5/5 R Hip Extension: 4/5 L Hip Extension: 4/5 Gait Gait Observation: WNL Pain with palpation at R TFL and with resisted MMT assessing the R TFL TREATMENT: Therapeutic Exercise: 1: All objective measures taken thiss ession 2: R piriformis stretch RLE 3 x 30 seconds 3: R quad stretch in prone x 30 seconds 4: DKTC x 60 sec Skilled Intervention: Patient was educated in proper exercise technique and purpose for exercises. Provided written instruction for home exercise program to facilitate proper performance and compliance. Correct performance of therapeutic exercises was facilitated with verbal and visual cuing. Billing Therapeutic Exercise Treatment Minutes: 30 Manual TherapyTreatment Minutes: 10 Total Treatment Time Minutes (timed/untimed): 40 Artie Velez [facility]07-12-2022 History of Present illness Narrative* Artie Velez, PT - 04/02/2022 8:33 AM EDT Episode Visit Count: 4 Therapist That Will Oversee The Plan Of Care: Artie Velez Start of Care Date: 02/14/22 Onset Date: 02/15/92 Patient Identified by Name and Date of : Yes REHABILITATION AND SPORTS THERAPY PHYSICAL THERAPY DISCONTINUANCE OF CARE PLAN OF CARE UPDATE: Assessment: Gladys Alba is discontinued from Physical Therapy services due to Patient/Clinician mutual decision to discontinue current plan of care. and Pt has not made progress through physical therapy. Patient was seen for 4 visits from Start of Care Date: 02/14/22 to 04/02/2022 and treatment included: Therapeutic exercise and Manual therapy. Goals updated 04/02/2022 Goals for Episode of Care: created on 02/14/22 through 04/11/22 Pt will report improved tolerance to standing in 8 weeks or less - Not Met Pt will demo glute max strength of 5/5 in 8 weeks for improved ability to maintain neutral spine posture - Not Met Patient Goals: Pt wants to keep the pain away SUBJECTIVE: Patient Reason for Visit: Pt states that he has his good days and bad days. Not much has change. Pt may go to spine. Wants to try and get an MRI. Functional Limitations: standing Pain: Pain Pain Level: 2 Pain Location: Low Back/Lumbar Spine - Right Additional Pain Information : Location 2 Pain Level 2: 4 Pain Location 2: Hip - Right PROMIS Scales Higher is Better 10/05/2021 11/27/2021 02/11/2022 Phys Func - Score - - 41 (mild dysfunction) Phys Func - Percentile - - 18 % Social Roles - Score - - 51 (within normal limits) Social Role - Percentile - - 54 % GH Physical - Score Incomplete 54.1 (Very Good) - GH Physical - Percentile - 66 % - GH Mental - Score 43.5 (Good) 41.1 (Good) - GH Mental - Percentile 26 % 19 % - T-scores: mean of general population = 50. 5 points is clinically meaningfully difference Percentiles provide an indication of how the patient's score ranks in relation to the general population. Higher percentile rankings indicate better function/quality of life. 50th percentile is the average of the general population and indicates half of respondents had a worse score. Lower is Better 02/11/2022 Fatigue - Score 51 (within normal limits) Fatigue - Percentile 46 % T-scores: mean of general population = 50. 5 points is clinically meaningfully difference Percentiles provide an indication of how the patient's score ranks in relation to the general population. Higher percentile rankings indicate better function/quality of life. 50th percentile is the average of the general population and indicates half of respondents had a worse score. OBJECTIVE MEASURES WITH LEVEL OF FUNCTION: Posture / Alignment Posture: Fair Lumbar Spine AROM Lumbar Flexion: Normal Lumbar Extension: Normal;Peripheralizing Lumbar R Side-Bend: Minimal limitation;Peripheralizing Lumbar L Side-Bend: Normal Lumbar R Rotation: Minimal limitation;Peripheralizing Lumbar L Rotation: Normal LE AROM R LE AROM: WNL L LE AROM: WNL LE Flexibility Flexibility: Piriformis Flexibility R Hip Flexor Flexibility: WNL L Hip Flexor Flexibility: WNL R Quadriceps Flexibility: WNL L Quadriceps Flexibility: WNL R Piriformis Flexibility: Min tightness L Piriformis Flexibility: WNL LE Strength R LE Strength: Grossly 5/5 L LE Strength: Grossly 5/5 R Hip Extension: 4/5 L Hip Extension: 4/5 Gait Gait Observation: WNL Pain with palpation at R TFL and with resisted MMT assessing the R TFL TREATMENT: Therapeutic Exercise: 1: All objective measures taken thiss ession 2: R piriformis stretch RLE 3 x 30 seconds 3: R quad stretch in prone x 30 seconds 4: DKTC x 60 sec Skilled Intervention: Patient was educated in proper exercise technique and purpose for exercises. Provided written instruction for home exercise program to facilitate proper performance and compliance. Correct performance of therapeutic exercises was facilitated with verbal and visual cuing. Billing Therapeutic Exercise Treatment Minutes: 30 Manual TherapyTreatment Minutes: 10 Total Treatment Time Minutes (timed/untimed): 40 Artie Velez [facility] NoteHNO ID: [id number] Author: Artie Velez PT Service: ? Author Type: Physical Therapist Type: Progress Notes Filed: 03/07/2022 1:07 PM Note Text: Episode Visit Count: 3 Therapist That Will Oversee The Plan Of Care: Artie Velez Start of Care Date: 02/14/22 Onset Date: 02/15/92 (total time of back pain; hip pain for 1 year now) Patient Identified by Name and Date of : Yes REHABILITATION AND SPORTS THERAPY PHYSICAL THERAPY TREATMENT NOTE ASSESSMENT: Gladys Alba tolerated the session with no issues. He demonstrated reported change in level of stiffness in the low back. The patient will continue to benefit from ongoing skilled physical therapy to progress toward set goals. PLAN FOR NEXT VISIT: POC update SUBJECTIVE: Patient Reason for Visit: Pt is still feeling tight and sore in the low back. Pt feels the core is getting stronger. Pain: Pain Pain Level: 2 Pain Location: Low Back/Lumbar Spine - Right Post Treatment Pain Post Treatment Pain Level: No Change OBJECTIVE MEASURES WITH LEVEL OF FUNCTION: Lumbar Spine AROM Lumbar Flexion: Normal;Increased pain (No better with reps) Lumbar Extension: Increased pain (No better with reps) Rosie test reveals slight tightness of the LLE TREATMENT: Therapeutic Exercise: 1: PPT on wall x 10 2: PPT on wall using stabilizer 20 mmHg to 40 mmHG (2 x 10) 3: Supine hip flexor stretch x 30 sec each leg 4: Discussed anatomy of the spine and benefits of trying to maintain a neutral spine with mowing the lawn and standing. Skilled Intervention: Patient was educated in proper exercise technique and purpose for exercises. Correct performance of therapeutic exercises was facilitated with verbal cuing. Manual Therapy: 1: Opening technique L lumbar facets in S/L 2: STM using index knobbler over lumbar paraspinals Skilled Intervention: Manual skills to improve joint mobility, ROM, and decrease pain. Utilized anatomy knowledge of the therapist, and assessment of patient's response to intervention. Billing Therapeutic Exercise Treatment Minutes: 15 Manual TherapyTreatment Minutes: 27 Total Treatment Time Minutes (timed/untimed): 42 Artie Velez [facility]06-14-2022 NoteHNO ID: [id number] Author: Artie Velez PT Service: ? Author Type: Physical Therapist Type: Progress Notes Filed: 03/05/2022 8:40 AM Note Text: 03/05/2022 [facility] REHABILITATION AND SPORTS THERAPY PHYSICAL THERAPY DISCONTINUANCE OF CARE Plan of Care Period: Start of Care Date: 02/14/22 Last Visit Date: 10/26/2021 Therapy Program: The following is a summary of the interventions provided for this episode of care; Therapeutic exercise Assessment: Based on most recent visit, patient was progressing as expected toward functional goals based on home exercise program compliance. Unable to formally assess goal achievement, as patient has not returned to therapy or scheduled additional follow-up appointments. Reason for Discontinuation of Care: Patient has not returned to therapy or scheduled additional follow-up appointments. Artie Velez [facility]06-07-2022 NoteHNO ID: [id number] Author: Artie Velez PT Service: ? Author Type: Physical Therapist Type: Progress Notes Filed: 02/26/2022 7:45 AM Note Text: Episode Visit Count: 2 Therapist That Will Oversee The Plan Of Care: Artie Velez Start of Care Date: 02/14/22 Onset Date: 02/15/92 (total time of back pain; hip pain for 1 year now) Patient Identified by Name and Date of : Yes REHABILITATION AND SPORTS THERAPY PHYSICAL THERAPY TREATMENT NOTE ASSESSMENT: Gladys Alba tolerated the session with no issues. He demonstrated difficulty with decreased joint mobility of the L-spine. The patient will continue to benefit from ongoing skilled physical therapy to progress toward set goals. PLAN FOR NEXT VISIT: Mobilize the L-spine SUBJECTIVE: Patient Reason for Visit: Pt states the bridge may be aggravating the low back. The low back can feel tight at times. Pain: Pain Pain Location: Low Back/Lumbar Spine - Right Post Treatment Pain Post Treatment Pain Level: No Change OBJECTIVE MEASURES WITH LEVEL OF FUNCTION: Modified bridge to 70% of normal height R side-bending and rotation mod limited R rotation improves to min limitation after manual therapy performed TREATMENT: Therapeutic Exercise: 1: mod bridge 2 x 10 2: SKTC x 5 each leg 3: Child's pose arms offset to the L x 10 reps holding 10 sec each Skilled Intervention: Patient was educated in proper exercise technique and purpose for exercises. Correct performance of therapeutic exercises was facilitated with verbal and visual cuing. Manual Therapy: 1: STM over R lumbar paraspinals with bowstringing technique 2: PA mobs grade 3 L2 and L4 x 30 each 3: Self massage ball vs wall discussed how to complete properly and amount of force to use Skilled Intervention: Manual skills to improve joint mobility, ROM, and decrease pain. Utilized anatomy knowledge of the therapist, and assessment of patient's response to intervention. Billing Therapeutic Exercise Treatment Minutes: 20 Manual TherapyTreatment Minutes: 25 Total Treatment Time Minutes (timed/untimed): 45 Artie Velez, [facility]06-07-2022 History of Present illness Narrative* Artie Velez, PT - 02/26/2022 7:00 AM EDT Episode Visit Count: 2 Therapist That Will Oversee The Plan Of Care: Artie Velez Start of Care Date: 02/14/22 Onset Date: 02/15/92 (total time of back pain; hip pain for 1 year now) Patient Identified by Name and Date of : Yes REHABILITATION AND SPORTS THERAPY PHYSICAL THERAPY TREATMENT NOTE ASSESSMENT: Gladys Alba tolerated the session with no issues. He demonstrated difficulty with decreased joint mobility of the L-spine. The patient will continue to benefit from ongoing skilled physical therapy to progress toward set goals. PLAN FOR NEXT VISIT: Mobilize the L-spine SUBJECTIVE: Patient Reason for Visit: Pt states the bridge may be aggravating the low back. The lowback can feel tight at times. Pain: Pain Pain Location: Low Back/Lumbar Spine - Right Post Treatment Pain Post Treatment Pain Level: No Change OBJECTIVE MEASURES WITH LEVEL OF FUNCTION: Modified bridge to 70% of normal height R side-bending and rotation mod limited R rotation improves to min limitation after manual therapy performed TREATMENT: Therapeutic Exercise: 1: mod bridge 2 x 10 2: SKTC x 5 each leg 3: Child's pose arms offset to the L x 10 reps holding 10 sec each Skilled Intervention: Patient was educated in proper exercise technique and purpose for exercises. Correct performance of therapeutic exercises was facilitated with verbal and visual cuing. Manual Therapy: 1: STM over R lumbar paraspinals with bowstringing technique 2: PA mobs grade 3 L2 and L4 x 30 each 3: Self massage ball vs wall discussed how to complete properly and amount of force to use Skilled Intervention: Manual skills to improve joint mobility, ROM, and decrease pain. Utilized anatomy knowledge of the therapist, and assessment of patient's response to intervention. Billing Therapeutic Exercise Treatment Minutes: 20 Manual TherapyTreatment Minutes: 25 Total Treatment Time Minutes (timed/untimed): 45 Artie Velez PT [facility] NoteHNO ID: [id number] Author: Artie Velez PT Service: ? Author Type: Physical Therapist Type: Progress Notes Filed: 02/14/2022 1:22 PM Note Text: Episode Visit Count: 1 Therapist That Will Oversee The Plan Of Care: Artie Velez Start of Care Date: 02/14/22 Onset Date: 02/15/92 (total time of back pain; hip pain for 1 year now) Patient Identified by Name and Date of : Yes REHABILITATION AND SPORTS THERAPY PHYSICAL THERAPY EVALUATION PLAN OF CARE: Assessment: Gladys Alba presents with chief complaint of LBP and numbness into the R leg that interferes with standing . He presents with impairments in joint mobility and strength . PROMIS? (Patient-Reported Outcomes Measurement Information System) scores were reviewed and physical function domain identified as a rehabilitation concern. Prognosis for therapy is Good due to: current objective clinical presentation . Pt demonstrates weakness of the glute max and hypomobility of the lumbar spine which may be contributing to pt's current symptoms. He will benefit from skilled therapy services to meet the goals established for this plan of care as noted below. Classification Low Back Pain Subgroup Classification: Spinal mobilization subgroup: recommended visits 6. Spinal Mobilization Subgroup Classification based on: facet like pain (Hypomobility with segmental testing) Goals for Episode of Care: created on 02/14/22 through 04/11/22 Pt will report improved tolerance to standing in 8 weeks or less Pt will demo glute max strength of 5/5 in 8 weeks for improved ability to maintain neutral spine posture Patient Goals: Pt wants to keep the pain away Planned Interventions, Frequency, and Duration: Current Frequency: 1x/week Duration: 4 weeks Total Number of Visits Planned: 4 Planned Treatment Interventions: Therapeutic exercise (68327);Neuromuscular re-education (91765);Manual therapy (61713);Self-shelter management (11511);Patient/Family/Caregiver Education PLAN FOR NEXT VISIT: Possibly add in R hip posterior capsule stretch. Patient demonstrates good understanding of plan of care and treatment. The above goals and plan of care were discussed and agreed upon by patient/family. SUBJECTIVE: Gladys Alba is a 51 year old male seen today for hip pain which has been going on for a year. Physician thinks it is coming from the back. X-ray of hip looks ok . Pt states he has a numb spot in the lateral R thigh. Can have pain travel down the back of the L leg. Prolonged sitting is fine. Standing bother the pt more and the numbness is more intense when standing in one place for long periods of time but is better with walking. Pt did one time while sitting lift up the R leg and spasm in the back. Patient Goals: Pt wants to keep the pain away Functional Limitations: standing Prior Level of Function: Independent without limitations Relevant History Preferred Language: Maltese Right or Left Handed: Right Recreation / Current Exercise: Self prescribed exercises Intake Information: Prescription present Previous Treatment: Ice?;Heat?;NSAIDs? Falls Interview: No positive findings with falls interview Red Flags Vertebral Fracture Clinical Reasoning: No identified risk factors Abdominal Aortic Aneurysm Clinical Reasoning: No identified risk factors. Cancer Clinical Reasoning: No identified risk factors. Infection Clinical Reasoning: No identified risk factors. Cauda Equina Syndrome Clinical Reasoning: No identified risk factors. Red Flags - Cervical Cancer Clinical Reasoning: No identified risk factors. Infection Clinical Reasoning: No identified risk factors. Spine History Symptoms Location at Onset: Back Symptoms Since Onset: Worsening Pain is Worse Always: Standing Pain: Pain Pain Location: Low Back/Lumbar Spine - Right Description: Numbness Post Treatment Pain Post Treatment Pain Level: No Change PROMIS Scales Higher is Better 10/05/2021 11/27/2021 02/11/2022 Phys Func - Score - - 41 (mild dysfunction) Phys Func - Percentile - - 18 % Social Roles - Score - - 51 (within normal limits) Social Role - Percentile - - 54 % GH Physical - Score Incomplete 54.1 (Very Good) - GH Physical - Percentile - 66 % - GH Mental - Score 43.5 (Good) 41.1 (Good) - GH Mental - Percentile 26 % 19 % - T-scores: mean of general population = 50. 5 points is clinically meaningfully difference Percentiles provide an indication of how the patient's score ranks in relation to the general population. Higher percentile rankings indicate better function/quality of life. 50th percentile is the average of the general population and indicates half of respondents had a worse score. Lower is Better 02/11/2022 Fatigue - Score 51 (within normal limits) Fatigue - Percentile 46 % T-scores: mean of general population = 50. 5 points is clinically meaningfully difference Percentiles provide an indication of how the patient's sc (more content not included)...[facility]05-26-2022 History of Present illness Narrative* Artie Velez, PT - 02/14/2022 12:10 PM EDT Episode Visit Count: 1 Therapist That Will Oversee The Plan Of Care: Artie Velez Start of Care Date: 02/14/22 Onset Date: 02/15/92 (total time of back pain; hip pain for 1 year now) Patient Identified by Name and Date of : Yes REHABILITATION AND SPORTS THERAPY PHYSICAL THERAPY EVALUATION PLAN OF CARE: Assessment: Gladys Alba presents with chief complaint of LBP and numbness into the R leg that interferes with standing . He presents with impairments in joint mobility and strength . PROMIS (Patient-Reported Outcomes Measurement Information System) scores were reviewed and physical function domain identified as a rehabilitation concern. Prognosis for therapy is Good due to: current objective clinical presentation . Pt demonstrates weakness of the glute max and hypomobility of the lumbar spinewhich may be contributing to pt's current symptoms. He will benefit from skilled therapy services to meet the goals established for this plan of care as noted below. Classification Low Back Pain Subgroup Classification: Spinal mobilization subgroup: recommended visits 6. Spinal Mobilization Subgroup Classification based on: facet like pain (Hypomobility with segmental testing) Goals for Episode of Care: created on 02/14/22 through 04/11/22 Pt will report improved tolerance to standing in 8 weeks or less Pt will demo glute max strength of 5/5 in 8 weeks for improved ability to maintain neutral spine posture Patient Goals: Pt wants to keep the pain away Planned Interventions, Frequency, and Duration: Current Frequency: 1x/week Duration: 4 weeks Total Number of Visits Planned: 4 Planned Treatment Interventions: Therapeutic exercise (99952);Neuromuscular re- education (36893);Manual therapy (40719);Self-shelter management (21392);Patient/Family/Caregiver Education PLAN FOR NEXT VISIT: Possibly add in R hip posterior capsule stretch. Patient demonstrates good understanding of plan of care and treatment. The above goals and plan of care were discussed and agreed upon by patient/family. SUBJECTIVE: Gladys Alba is a 51 year old male seen today for hip pain which has been going on fora year. Physician thinks it is coming from the back. X-ray of hip looks ok . Pt states he has a numb spot in the lateral R thigh. Can have pain travel down the back of the L leg. Prolonged sitting isfine. Standing bother the pt more and the numbness is more intense when standing in one place for long periods of time but is better with walking. Pt did one time while sitting lift up the R leg and spasm in the back. Patient Goals: Pt wants to keep the pain away Functional Limitations: standing Prior Level of Function: Independent without limitations Relevant History Preferred Language: Maltese Right or Left Handed: Right Recreation / Current Exercise: Self prescribed exercises Intake Information: Prescription present Previous Treatment: Ice ;Heat ;NSAIDs Falls Interview: No positive findings with falls interview Red Flags Vertebral Fracture Clinical Reasoning: No identified risk factors Abdominal Aortic Aneurysm Clinical Reasoning: No identified risk factors. Cancer Clinical Reasoning: No identified risk factors. Infection Clinical Reasoning: No identified risk factors. Cauda Equina Syndrome Clinical Reasoning: No identified risk factors. Red Flags - Cervical Cancer Clinical Reasoning: No identified risk factors. Infection Clinical Reasoning: No identified risk factors. Spine History Symptoms Location at Onset: Back Symptoms Since Onset: Worsening Pain is Worse Always: Standing Pain: Pain Pain Location: Low Back/Lumbar Spine - Right Description: Numbness Post Treatment Pain Post Treatment Pain Level: No Change PROMIS Scales Higher is Better 10/05/2021 11/27/2021 02/11/2022 Phys Func - Score - - 41 (mild dysfunction) Phys Func - Percentile - - 18 % Social Roles - Score - - 51 (within normal limits) Social Role - Percentile - - 54 % GH Physical - Score Incomplete 54.1 (Very Good) - GH Physical - Percentile - 66 % - GH Mental - Score 43.5 (Good) 41.1 (Good) - GH Mental - Percentile 26 % 19 % - T-scores: mean of general population = 50. 5 points is clinically meaningfully difference Percentiles provide an indication of how the patient's score ranks in relation to the general population. Higher percentile rankings indicate better function/quality of life. 50th percentile is the average of the general population and indicates half of respondents had a worse score. Lower is Better 02/11/2022 Fatigue - Score 51 (within normal limits) Fatigue - Percentile 46 % T-scores: mean of general population = 50. 5 points is clinically meaningfully difference Percentiles provide an indication of how the patient's score ranks in relation to the general population. Higher percentile rankings indicate better function/quality of life. 50th percentile is the average of the general population and indicates half of respondents had a worse score. OBJECTIVE MEASURES WITH LEVEL OF FUNCTION: Lumbar Spine AROM Lumbar Flexion: Normal Lumbar Extension: Normal ("Feels tight") LE AROM Tested?: Yes LE AROM R LE AROM: WNL L LE AROM: WNL R Hip Internal Rotation: 15 Degrees R Hip External Rotation: 40 Degrees LE Flexibility Flexibility: Hip Flexor Flexibility;Quadriceps Flexibility R Hip Flexor Flexibility: WNL L Hip Flexor Flexibility: WNL R Quadriceps Flexibility: WNL L Quadriceps Flexibility: WNL Spine Joint Mobility Spine Joint Mobility : Lumbar/Thoracic Joint Mobility - T12: WNL Joint Mobility - L1: WNL Joint Mobility - L2: WNL Joint Mobility - L3: Hypomobile Joint Mobility - L4: Hypomobile Joint Mobility - L5: Hypomobile LE Strength R LE Strength: Grossly 5/5 L LE Strength: Grossly 5/5 Education: Education Learning Preferences: Demonstration;Explanation;Performance;Printed Materials Barriers: None Learning/educational needs: Home exercise program;Plan of Care Education Provided: Yes, see treatment interventions for education provided Education Provided To: Patient Education Mode/Type: Demonstration;Explanation/Discussion;Literature/Printed Materials;Performance Response to Education/Teach Back: States/Identifies;Return Demonstration TREATMENT: PT Treatment Interventions: Therapeutic Exercise Evaluation Therapeutic Exercise: 1: Discussed therapy goals and exam findings. 2: Hooklying bridge x 10 reps 3: Crunch arms behind head x 10 reps Skilled Intervention: Patient was educated in proper exercise technique and purpose for exercises. Provided written instruction for home exercise program to facilitate proper performance and compliance. Correct performance of therapeutic exercises was facilitated with verbal and visual cuing. Billing * Evaluation Low Complexity: 1 Unit Therapeutic Exercise Treatment Minutes: 23 Total Treatment Time Minutes (timed/untimed): 45 Artie Velez PT [facility] NoteHNO ID: [id number] Author: Kiet Venegas MD Service: ? Author Type: Physician Type: Progress Notes Filed: 02/07/2022 1:43 PM Note Text: Patient presents with: Physical HPI: Patient presents today for office visit for physical. Psych: he is not using zoloft. Is taking Mikaela's wort. Still has some anxiety. Did have normal stress test for chest pain. Occurs when anxious. No chest pain with exertion. Red flags for re-assessment reviewed with patient in detail. Having some marital issues. Is doing therapy,. ABI: using cpap. Feels it is benefiting him. Saw ortho recently for hip pain. Got a shot yesterday and ordered physical therapy. Not sure if hip or back. Has an occasional tremor starting six months ago. Worse in right hand. No headache. No vision. No new focal numbness or weakness. No ataxia. No known tremor. MEDICATIONS: Current Outpatient Medications Medication Sig - Zinc 50 mg tab Take 50 mg by mouth once daily. - cholecalciferol (VITAMIN D) 1,000 unit tab tablet Take 1,000 Units by mouth once daily. - Magnesium 250 mg tab Take 250 mg by mouth once daily. - sertraline (ZOLOFT) 50 mg tablet Take 1 tablet by mouth once daily. - MIKAELA'S WORT ORAL Take by mouth. - ascorbic acid (VITAMIN C ORAL) Take by mouth. - Lactobacillus acidophilus (PROBIOTIC ORAL) Take by mouth. - BIPAP No current facility-administered medications for this visit. ALLERGIES: ALLERGIES Allergen Reactions - Animal Dander [Othe* Intolerance - Dust Intolerance - Grass Pollen Intolerance - Mold Intolerance - Pollen Intolerance - Trees Intolerance PAST MEDICAL HISTORY Diagnosis Date - Chronic midline low back pain without sciatica 09/27/2019 - Hemorrhage of gastrointestinal tract, unspecified - Hyperlipidemia, mixed 09/27/2019 - Obesity, Class II, BMI 35-39.9 09/27/2019 PAST SURGICAL HISTORY Procedure Laterality Date - ANESTH DIAGNOSTIC ARTHROSCOPIC PROC KNEE JOINT right knee X 2 - COLONOSCOPY FLX DX W/COLLJ SPEC WHEN PFRMD 01/09/2009 Normal - EXC VARICOCELE/LIGATION SPERMATIC VEINS SPX Variocele repair - KNEE ARTHROSCOPY Left - VASECTOMY UNI/BI SPX W/POSTOP SEMEN EXAMS 12-16-06 - WRIST SURGERY HX Bilateral 2018 right and left carpel tunnel release FAMILY HISTORY Problem Relation Age of Onset - Hypertension Mother - Hyperlipidemia Mother - Diabetes Father - Heart Father CHF - Cancer Father Bladder - Colon Cancer Maternal Grandmother - Colon Cancer Maternal Uncle - No Known Problems Half-sister - No Known Problems Half-brother - No Known Problems Half-brother - No Known Problems Daughter - No Known Problems Daughter - No Known Problems Son - No Known Problems Son - No Known Problems Son Social History Tobacco Use - Smoking status: Never Smoker - Smokeless tobacco: Never Used Substance Use Topics - Alcohol use: No - Drug use: No Reviewed current medications, allergies, past medical history, surgical history, family history and social history today. REVIEW OF SYSTEMS NECK: Negative for lumps, goiter, pain and significant neck swelling RESPIRATORY: Negative for cough, hemoptysis, wheezing, COPD, dyspnea or shortness of breath GI: No nausea, vomiting, or diarrhea : No history of dysuria, frequency or incontinence MUSCULOSKELETAL: Negative for joint pain or swelling, back pain or muscle pain SKIN: sees derm with [facility] All other reviewed and negative other than HPI. HEALTH MAINTENANCE: Reviewed health maintenance issues today and recommended the following in detail. COVID-19 VACCINE-Discussed risks and benefits of covid vaccine. Recommended they consider it. HEPATITIS C SCREENING Never done HIV SCREENING Never done COLORECTAL CANCER SCREENING was negative. Done at [facility]. Per Dr. Parisi. DTAP,TDAP,TD(2 - Tdap) due on 07/23/2015 SHINGRIX VACCINE(1 of 2) Never done Had discussion with patient regarding risks and benefits of prostate screening. Allowed them to decide if they wished to proceed with screening including JORGE and PSA. Component Latest Ref Rng AND Units 11/30/2021 Protein, Total 6.3 - 8.0 g/dL 7.6 Albumin 3.9 - 4.9 g/dL 5.1 (H) Calcium 8.5 - 10.2 mg/dL 9.8 Bilirubin, Total 0.2 - 1.3 mg/dL 0.7 Alkaline Phosphatase 38 - 113 U/L 56 AST 14 - 40 U/L 24 ALT 10 - 54 U/L 27 Glucose 74 - 99 mg/dL 90 BUN 9 - 24 mg/dL 12 Creatinine 0.73 - 1.22 mg/dL 0.89 Sodium 136 - 144 mmol/L 138 Potassium 3.7 - 5.1 mmol/L 4.1 Chloride 97 - 105 mmol/L 101 CO2 22 - 30 mmol/L 26 Anion Gap 9 - 18 mmol/L 11 eGFR >=60 mL/min/1.73m? 103 WBC 3.70 - 11.00 k/uL 8.14 RBC 4.20 - 6.00 m/uL 5.13 Hemoglobin 13.0 - 17.0 g/dL 15.8 Hematocrit 39.0 - 51.0 % 47.4 MCV 80.0 - 100.0 fL 92.4 MCH 26.0 - 34.0 pg 30.8 MCHC 30.5 - 36.0 g/dL 33.3 RDW-CV 11.5 - 15.0 % 12.9 Platelet Count 150 - 400 k/uL 207 MPV 9.0 - 12.7 fL 10.0 Absolute nRBC <0.01 k/uL <0.01 TSH 0.270 - 4.200 mIU/L 1.900 Vitamin D 25 H (more content not included)...[facility] 02-07-2022 History of Present illness Narrative* Kiet Venegas MD - 02/07/2022 1:12 PM EDT Patient presents with: Physical HPI: Patient presents today for office visit for physical. Psych: he is not using zoloft. Is taking Menlo's wort. Still has some anxiety. Did have normal stress test for chest pain. Occurs when anxious. No chest pain with exertion. Red flags for re-assessment reviewed with patient in detail. Having some marital issues. Is doing therapy,. ABI: using cpap. Feels it is benefiting him. Saw ortho recently for hip pain. Got a shot yesterday and ordered physical therapy. Not sure if hipor back. Has an occasional tremor starting six months ago. Worse in right hand. No headache. No vision. No new focal numbness or weakness. No ataxia. No known tremor. MEDICATIONS: Current Outpatient Medications Medication Sig Zinc 50 mg tab Take 50 mg by mouth once daily. cholecalciferol (VITAMIN D) 1,000 unit tab tablet Take 1,000 Units by mouth once daily. Magnesium 250 mg tab Take 250 mg by mouth once daily. sertraline (ZOLOFT) 50 mg tablet Take 1 tablet by mouth once daily. MIKAELA'S WORT ORAL Take by mouth. ascorbic acid (VITAMIN C ORAL) Take by mouth. Lactobacillus acidophilus (PROBIOTIC ORAL) Take by mouth. BIPAP No current facility-administered medications for this visit. ALLERGIES: ALLERGIES Allergen Reactions Animal Dander [Othe* Intolerance Dust Intolerance Grass Pollen Intolerance Mold Intolerance Pollen Intolerance Trees Intolerance PAST MEDICAL HISTORY Diagnosis Date Chronic midline low back pain without sciatica 09/27/2019 Hemorrhage of gastrointestinal tract, unspecified Hyperlipidemia, mixed 09/27/2019 Obesity, Class II, BMI 35-39.9 09/27/2019 PAST SURGICAL HISTORY Procedure Laterality Date ANESTH DIAGNOSTIC ARTHROSCOPIC PROC KNEE JOINT right knee X 2 COLONOSCOPY FLX DX W/COLLJ SPEC WHEN PFRMD 01/09/2009 Normal EXC VARICOCELE/LIGATION SPERMATIC VEINS SPX Variocele repair KNEE ARTHROSCOPY Left VASECTOMY UNI/BI SPX W/POSTOP SEMEN EXAMS 12-16-06 WRIST SURGERY HX Bilateral 2017 right and left carpel tunnel release FAMILY HISTORY Problem Relation Age of Onset Hypertension Mother Hyperlipidemia Mother Diabetes Father Heart Father CHF Cancer Father Bladder Colon Cancer Maternal Grandmother Colon Cancer Maternal Uncle No Known Problems Half-sister No Known Problems Half-brother No Known Problems Half-brother No Known Problems Daughter No Known Problems Daughter No Known Problems Son No Known Problems Son No Known Problems Son Social History Tobacco Use Smoking status: Never Smoker Smokeless tobacco: Never Used Substance Use Topics Alcohol use: No Drug use: No Reviewed current medications, allergies, past medical history, surgical history, family history andsocial history today. REVIEW OF SYSTEMS NECK: Negative for lumps, goiter, pain and significant neck swelling RESPIRATORY: Negative for cough, hemoptysis, wheezing, COPD, dyspnea or shortness of breath GI: No nausea, vomiting, or diarrhea : No history of dysuria, frequency or incontinence MUSCULOSKELETAL: Negative for joint pain or swelling, back pain or muscle pain SKIN: sees derm with [facility] All other reviewed and negative other than HPI. HEALTH MAINTENANCE: Reviewed health maintenance issues today and recommended the following in detail. COVID-19 VACCINE-Discussed risks and benefits of covid vaccine. Recommended they consider it. HEPATITIS C SCREENING Never done HIV SCREENING Never done COLORECTAL CANCER SCREENING was negative. Done at [facility]. Per Dr. Parisi. DTAP,TDAP,TD(2 - Tdap) due on 07/23/2015 SHINGRIX VACCINE(1 of 2) Never done Had discussion with patient regarding risks and benefits of prostate screening. Allowed them to decide if they wished to proceed with screening including JORGE and PSA. Component Latest Ref Rng & Units 11/30/2021 Protein, Total 6.3 - 8.0 g/dL 7.6 Albumin 3.9 - 4.9 g/dL 5.1 (H) Calcium 8.5 - 10.2 mg/dL 9.8 Bilirubin, Total 0.2 - 1.3 mg/dL 0.7 Alkaline Phosphatase 38 - 113 U/L 56 AST 14 - 40 U/L 24 ALT 10 - 54 U/L 27 Glucose 74 - 99 mg/dL 90 BUN 9 - 24 mg/dL 12 Creatinine 0.73 - 1.22 mg/dL 0.89 Sodium 136 - 144 mmol/L 138 Potassium 3.7 - 5.1 mmol/L 4.1 Chloride 97 - 105 mmol/L 101 CO2 22 - 30 mmol/L 26 Anion Gap 9 - 18 mmol/L 11 eGFR >=60 mL/min/1.73m 103 WBC 3.70 - 11.00 k/uL 8.14 RBC 4.20 - 6.00 m/uL 5.13 Hemoglobin 13.0 - 17.0 g/dL 15.8 Hematocrit 39.0 - 51.0 % 47.4 MCV 80.0 - 100.0 fL 92.4 MCH 26.0 - 34.0 pg 30.8 MCHC 30.5 - 36.0 g/dL 33.3 RDW-CV 11.5 - 15.0 % 12.9 Platelet Count 150 - 400 k/uL 207 MPV 9.0 - 12.7 fL 10.0 Absolute nRBC <0.01 k/uL <0.01 TSH 0.270 - 4.200 mIU/L 1.900 Vitamin D 25 Hydroxy 31.0 - 80.0 ng/mL 37.2 VITALS: BP 122/72 Pulse 68 Wt 134.3 kg (296 lb) BMI 37.00 kg/m Last 4 Encounter Wt Readings: Date: Wt: 02/07/2022 134.3 kg (296 lb) 11/30/2021 133.1 kg (293 lb 6.4 oz) 09/27/2019 128.8 kg (284 lb) 05/10/2015 134.3 kg (296 lb) PHYSICAL EXAMINATION: General appearance: Well appearing, alert, in no acute distress, well-hydrated, well nourished. Skin: Skin color, texture, turgor normal, no suspicious rashes or lesions Head: Normocephalic, no masses, lesions, tenderness or abnormalities Eyes: Anicteric sclera. Pupils are equally round and reactive to light. Extraocular movements are intact. Ears: External ears normal, canals clear Neck: Supple, no adenopathy; thyroid symmetric, normal size, no bruits Lungs: Lungs clear to auscultation. No wheezing, rhonchi, rales Heart: RRR without murmur, gallop, or rubs. No ectopy Abdomen: Normal abdominal exam, Abdomen soft, non-tender. Bowel sounds normal. No masses, organomegaly Extremities: No deformities, edema, skin discoloration, clubbing or cyanosis. Good capillary refill. Musculoskeletal: No joint swelling, deformity, or tenderness Peripheral pulses: Normal Neuro: Gait normal. Reflexes normal and symmetric. Sensation grossly intact., Negative findings: speech normal, mental status intact, muscle tone normal, muscle strength normal, minimal tremor on right hand with rest. No stiffness or cogwheeling. ASSESSMENT/PLAN: 1. Well adult exam - ICD9: V70.0, ICD10: Z00.00 (primary diagnosis) - follow lab.s - LIPID PANEL BASIC 2. ABI (obstructive sleep apnea) - ICD9: 327.23, ICD10: G47.33 - continue cpapl 3. Screening for colon cancer - ICD9: V76.51, ICD10: Z12.1 - CONSULT TO GENERAL SURGERY 4. Need for hepatitis C screening test - ICD9: V73.89, ICD10: Z11.59 - HEP C AB IA W/CONF SCRN 5. Screening for HIV (human immunodeficiency virus) - ICD9: V73.89, ICD10: Z11.4 - HIV 1 2 COMBO(AG/AB),WITH REFLEX TO DIFFERENTIATION 6. Tremor - ICD9: 781.0, ICD10: R25.1 - ? Essential tremor. Monitor. Limit caffeine. Red flags for re-assessment reviewed with patient indetail. - consider neuro if worsens. Kiet Venegas MD [facility] History of Past illness Narrative* Problem Noted Date Resolved Date Strain of other muscles, fas scott and tendons at shoulder and upper arm level, left arm, initial encounter 10/03/2021 Chronic midline low back pain without sciatica 0 09/27/2019 02/07/2022 Pain in joint, lower leg 01/27/2013 022 Blood in stool 12/16/2008 02/07/2022 Cellulitis and abscess of leg, except foot 05/0302/07/2022 Cellulitis and abscess of trunk 04/07/2008 02/07/2022 Sprain of foot, unspecified site 12/23/2006 02/07/2022 Sebaceous cyst 08/26/2005 02/07/2022 documented as of this encounter (statuses as of 02/07/2022) [facility] of Past illness Narrative* Problem Noted Date Resolved Date Strain of other muscles, fas scott and tendons at shoulder and upper arm level, left arm, initial encounter 10/03/2021 2 Chronic midline low back pain without sciatica 0 09/27/2019 02/07/2022 Pain in joint, lower leg 01/27/2013 022 Blood in stool 12/16/2008 02/07/2022 Cellulitis and abscess of leg, except foot 05/0302/07/2022 Cellulitis and abscess of trunk 04/07/2008 02/07/2022 Sprain of foot, unspecified site 12/23/2006 02/07/2022 Sebaceous cyst 08/26/2005 02/07/2022 documented as of this encounter (statuses as of 02/14/2022) [facility] of Past illness Narrative* Problem Noted Date Resolved Date Strain of other muscles, fas scott and tendons at shoulder and upper arm level, left arm, initial encounter 10/03/2021 2 Chronic midline low back pain without sciatica 0 09/27/2019 02/07/2022 Pain in joint, lower leg 01/27/2013 022 Blood in stool 12/16/2008 02/07/2022 Cellulitis and abscess of leg, except foot 05/0302/07/2022 Cellulitis and abscess of trunk 04/07/2008 02/07/2022 Sprain of foot, unspecified site 12/23/2006 02/07/2022 Sebaceous cyst 08/26/2005 02/07/2022 documented as of this encounter (statuses as of 02/26/2022) [facility] of [facility] illness Narrative* Problem Noted Date Resolved Date Strain of other muscles, fas scott and tendons at shoulder and upper arm level, left arm, initial encounter 10/03/2021 Chronic midline low back pain without sciatica 0 09/27/2019 02/07/2022 Pain in joint, lower leg 01/27/2013 022 Blood in stool 12/16/2008 02/07/2022 Cellulitis and abscess of leg, except foot 05/0302/07/2022 Cellulitis and abscess of trunk 04/07/2008 02/07/2022 Sprain of foot, unspecified site 12/23/2006 02/07/2022 Sebaceous cyst 08/26/2005 02/07/2022 documented as of this encounter (statuses as of 04/02/2022) [facility] Narrative* Problem Noted Date Resolved Date Strain of other muscles, fas scott and tendons at shoulder and upper arm level, left arm, initial encounter 10/03/2021 2 Chronic midline low back pain without sciatica 0 09/27/2019 02/07/2022 Pain in joint, lower leg 01/27/2013 022 Blood in stool 12/16/2008 02/07/2022 Cellulitis and abscess of leg, except foot 05/0302/07/2022 Cellulitis and abscess of trunk 04/07/2008 02/07/2022 Sprain of foot, unspecified site 12/23/2006 02/07/2022 Sebaceous cyst 08/26/2005 02/07/2022 documented as of this encounter (statuses as of 08/05/2022) [facility] of [facility] Narrative* Problem Noted Date Resolved Date Strain of other muscles, fas scott and tendons at shoulder and upper arm level, left arm, initial encounter 10/03/2021 2 Chronic midline low back pain without sciatica 0 09/27/2019 02/07/2022 Pain in joint, lower leg 01/27/2013 022 Blood in stool 12/16/2008 02/07/2022 Cellulitis and abscess of leg, except foot 05/0302/07/2022 Cellulitis and abscess of trunk 04/07/2008 02/07/2022 Sprain of foot, unspecified site 12/23/2006 02/07/2022 Sebaceous cyst 08/26/2005 02/07/2022 documented as of this encounter (statuses as of 09/10/2022) [facility] of [facility] Narrative* Problem Noted Date Resolved Date Strain of other muscles, fas scott and tendons at shoulder and upper arm level, left arm, initial encounter 10/03/2021 Chronic midline low back pain without sciatica 0 09/27/2019 02/07/2022 Pain in joint, lower leg 01/27/2013 022 Blood in stool 12/16/2008 02/07/2022 Cellulitis and abscess of leg, except foot 05/0302/07/2022 Cellulitis and abscess of trunk 04/07/2008 02/07/2022 Sprain of foot, unspecified site 12/23/2006 02/07/2022 Sebaceous cyst 08/26/2005 02/07/2022 documented as of this encounter (statuses as of 09/27/2022) [facility] Narrative* Problem Noted Date Resolved Date Strain of other muscles, fas scott and tendons at shoulder and upper arm level, left arm, initial encounter 10/03/2021 Chronic midline low back pain without sciatica 0 09/27/2019 02/07/2022 Pain in joint, lower leg 01/27/2013 022 Blood in stool 12/16/2008 02/07/2022 Cellulitis and abscess of leg, except foot 05/0302/07/2022 Cellulitis and abscess of trunk 04/07/2008 02/07/2022 Sprain of foot, unspecified site 12/23/2006 02/07/2022 Sebaceous cyst 08/26/2005 02/07/2022 documented as of this encounter (statuses as of 10/03/2022) [facility] Narrative* Problem Noted Date Resolved Date Strain of other muscles, fas scott and tendons at shoulder and upper arm level, left arm, initial encounter 10/03/2021 Chronic midline low back pain without sciatica 0 09/27/2019 02/07/2022 Pain in joint, lower leg 01/27/2013 022 Blood in stool 12/16/2008 02/07/2022 Cellulitis and abscess of leg, except foot 05/0302/07/2022 Cellulitis and abscess of trunk 04/07/2008 02/07/2022 Sprain of foot, unspecified site 12/23/2006 02/07/2022 Sebaceous cyst 08/26/2005 02/07/2022 documented as of this encounter (statuses as of 10/08/2022) [facility] of [facility] Narrative* Problem Noted Date Resolved Date Strain of other muscles, fas scott and tendons at shoulder and upper arm level, left arm, initial encounter 10/03/2021 Chronic midline low back pain without sciatica 0 09/27/2019 02/07/2022 Pain in joint, lower leg 01/27/2013 022 Blood in stool 12/16/2008 02/07/2022 Cellulitis and abscess of leg, except foot 05/0302/07/2022 Cellulitis and abscess of trunk 04/07/2008 02/07/2022 Sprain of foot, unspecified site 12/23/2006 02/07/2022 Sebaceous cyst 08/26/2005 02/07/2022 documented as of this encounter (statuses as of 10/21/2022) [facility] of [facility] Narrative* Problem Noted Date Resolved Date Strain of other muscles, fas scott and tendons at shoulder and upper arm level, left arm, initial encounter 10/03/2021 Chronic midline low back pain without sciatica 0 09/27/2019 02/07/2022 Pain in joint, lower leg 01/27/2013 022 Blood in stool 12/16/2008 02/07/2022 Cellulitis and abscess of leg, except foot 05/0302/07/2022 Cellulitis and abscess of trunk 04/07/2008 02/07/2022 Sprain of foot, unspecified site 12/23/2006 02/07/2022 Sebaceous cyst 08/26/2005 02/07/2022 documented as of this encounter (statuses as of 11/12/2022) [facility] note* Diagnosis Well adult exam- Primary Routine general medical examination at a health care facility ABI (obstructive sleep apnea) Obstructive sleep apnea (adult) (pediatric) Screening for colon cancer Special screening for malignant neoplasms, colon Need for hepatitis C screening test Special screening examination for other specified viral diseases Screening for HIV (human immunodeficiency virus) Special screening examination for other specified viral diseases Tremor Abnormal involuntary movements documented in this encounter [facility]* Diagnosis Lumbar radiculopathy- Primary Thoracic or lumbosacral neuritis or radiculitis, unspecified documented in this encounter [facility]* Diagnosis Lumbar radiculopathy- Primary Thoracic or lumbosacral neuritis or radiculitis, unspecified documented in this encounter [facility]* Diagnosis Lumbar radiculopathy- Primary Thoracic or lumbosacral neuritis or radiculitis, unspecified documented in this encounter [facility]* Diagnosis Screening for colon cancer Special screening for malignant neoplasms, colon documented in this encounter [facility]* Diagnosis Superior glenoid labrum lesion of left shoulder, subsequent encounter- Primary documented in this encounter [facility]* Diagnosis Arthritis of left shoulder region- Primary Unspecified arthropathy, shoulder region Chondromalacia of left shoulder Chondromalacia documented in this encounter [facility]* Diagnosis Arthritis of left shoulder region- Primary Unspecified arthropathy, shoulder region Chondromalacia of left shoulder Chondromalacia documented in this encounter [facility]* Diagnosis Arthritis of left shoulder region- Primary Unspecified arthropathy, shoulder region Chondromalacia of left shoulder Chondromalacia documented in this encounter [facility]* Diagnosis Arthritis of left shoulder region- Primary Unspecified arthropathy, shoulder region Chondromalacia of left shoulder Chondromalacia documented in this encounter [facility]* Diagnosis Other congenital malformations of spine, not associated with scoliosis documented in this encounter [facility]* Diagnosis Other congenital malformations of spine, not associated with scoliosis- Primary Other congenital malformations of spine, not associated with scoliosis [facility] Diagnosis Cough with fever- Primary URI, acute Acute upper respiratory infections of unspecified site documented in this encounter [facility] note* Diagnosis Cough with fever [facility] Outpatient Procedure (Routine) - Pending Review Specialty Diagnoses / Procedures Referred By Zenia lópez Referred To Contact [facility] Diagnoses Screening for colon cancer Procedures COLONOSCOPY SCREENING COLONOSCOPY FLX DX W/COLLJ SPEC WHEN PFRMD Kiet Venegas MD [address] [place] [address] [facility] [address] [place] [address] Referral ID Status Reason Start Date Expiration Date Visits Requested Visits Authorized [id number] Pending Review Auto-Generat ed Referral 07/31/2022 07/31/2023 1 1 [facility] Summary Purpose Family History Family Member Condition Father Heart disease Father Diabetes - insulin d ependent Father Cancer Mother High blood pressure Mother Arthritis Father Mother Alive Advance Directives No Advanced Directives Records FoundNo Advanced Directives Records FoundNo Advanced Directives Records FoundNo Advanced Directives Records FoundNo Advanced Directives Records FoundNo Advanced Directives Records FoundNo Advanced Directives Records Found No Information Available Reason for Referral Specialty Diagnoses / Procedures Referred By Zenia lópez Referred To Contact General Surgery Diagnoses Screening for colon cancer Procedures CONSULT TO GENERAL SURGERY OFFICE/OUTPATIENT NEW HIGH MDM 60-74 MINUTES Kiet Venegas MD [address] [place] [address] Referral ID Status Reason Start Date Expiration Date Visits Requested Visits Authorized [id number] Authorized PCP Requested Referral 02/07/2022 02/07/2023 1 1 Specialty Diagnoses / Procedures Referred By Zenia t Referred To Contact [facility] Diagnoses Superior glenoid labrum lesion of left shoulder, subsequent encounter Procedures PT REHAB FOLLOW UP ORDER THERAPEUTIC EXERCISES RE, EA 15 MIN. Artie Velez, PT [facility] [address] [place] [address] Referral ID Status Reason Start Date Expiration Date Visits Requested Visits Authorized [id number] Pending Review PCP Requested Referral Auto-Generate d Referral 2 12/09/2022 1 1 Specialty Diagnoses / Procedures Referred By Contac t Referred To Contact [facility] Diagnoses Arthritis of left shoulder region Chondromalacia of left shoulder Procedures PT REHAB FOLLOW UP ORDER THERAPEUTIC EXERCISES RE, EA 15 MIN. Artie Velez, PT [address] [place] [address] [facility] [address] [place] [address] Referral ID Status Reason Start Date Expiration Date Visits Requested Visits Authorized [id number] Pending Review PCP Requested Referral Auto-Generate d Referral 10/08/2022 01/06/2023 1 1 Referral ID Status Reason Start Date Expiration Date Visits Requested Visits Authorized [id number] Pending Review PCP Requested Referral Auto-Generate d Referral 11/12/2022 02/10/2023 1 1 Specialty Diagnoses / Procedures Referred By Contac t Referred To Contact Radiology Diagnoses Other congenital malformations of spine, not associated with scoliosis Procedures MR lumbar spine wo contrast Sonia Chan, DOUBLING MACHINE OPERATOR - NURSING HOME SOCIAL WORKER [address] [facility] [address] [place] [address] Referral ID Status Reason Start Date Expiration Date Visits Re quested Visits Authorized [id number] Closed 02/20/2024 02/19/2025 1 1 Additional Source Comments (unrecognized sect ion and content) No Status Records FoundNo Status Records FoundNo Status Records FoundNo Status Records FoundNo Status Records FoundNo Status Records FoundNo Status Records Found INFORMATION SOURCE (unrecogn ized section and content) DATE CREATED AUTHOR 09/10/2020 [facility] DATE CREATED AUTHOR AUTHOR'S ORGANIZ ATION 09/20/2020 [facility] DATE CREATED AUTHOR AUTHOR'S ORGANIZ ATION 06/25/2022 [facility] DATE CREATED AUTHOR AUTHOR'S ORGANIZ ATION 01/22/2023 [facility] DATE CREATED AUTHOR AUTHOR'S ORGANIZ ATION 05/19/2024 [facility] DATE CREATED AUTHOR AUTHOR'S ORGANIZ ATION 05/27/2024 [facility] DATE CREATED AUTHOR AUTHOR'S ORGANIZ ATION 10/14/2024 [facility] Ce [facility]ter Source Comments (unrecognize d section and content) In the event this informatio n is protected by the Federal Confidentiality of Alcohol and Drug Abuse Patient Records regulations: The Federal rules restrict any use of the information to criminally investigate or prosecute any alcohol or drug abuse patient.[facility] the event this information is protected by the Federal Confidentiality of Alcohol and Drug Abuse Patient Records regulations: The Federal rules restrict any use of the information to criminally investigate or prosecute any alcohol or drug abuse patient.[facility] the event this information is protected by the Federal Confidentiality of Alcohol and Drug Abuse Patient Records regulations: The Federal rules restrict any use of the information to criminally investigate or prosecute any alcohol or drug abuse patient.[facility] the event this information is protected by the Federal Confidentiality of Alcohol and Drug Abuse Patient Records regulations: The Federal rules restrict any use of the information to criminally investigate or prosecute any alcohol or drug abuse patient.[facility] the event this information is protected by the Federal Confidentiality of Alcohol and Drug Abuse Patient Records regulations: The Federal rules restrict any use of the information to criminally investigate or prosecute any alcohol or drug abuse patient.[facility] the event this information is protected by the Federal Confidentiality of Alcohol and Drug Abuse Patient Records regulations: The Federal rules restrict any use of the information to criminally investigate or prosecute any alcohol or drug abuse patient.[facility] the event this information is protected by the Federal Confidentiality of Alcohol and Drug Abuse Patient Records regulations: The Federal rules restrict any use of the information to criminally investigate or prosecute any alcohol or drug abuse patient.[facility] the event this information is protected by the Federal Confidentiality of Alcohol and Drug Abuse Patient Records regulations: The Federal rules restrict any use of the information to criminally investigate or prosecute any alcohol or drug abuse patient.[facility] the event this information is protected by the Federal Confidentiality of Alcohol and Drug Abuse Patient Records regulations: The Federal rules restrict any use of the information to criminally investigate or prosecute any alcohol or drug abuse patient.[facility] the event this information is protected by the Federal Confidentiality of Alcohol and Drug Abuse Patient Records regulations: The Federal rules restrict any use of the information to criminally investigate or prosecute any alcohol or drug abuse patient.[facility] the event this information is protected by the Federal Confidentiality of Alcohol and Drug Abuse Patient Records regulations: The Federal rules restrict any use of the information to criminally investigate or prosecute any alcohol or drug abuse patient.[facility] the event this information is protected by the Federal Confidentiality of Alcohol and Drug Abuse Patient Records regulations: The Federal rules restrict any use of the information to criminally investigate or prosecute any alcohol or drug abuse patient.[facility] the event this information is protected by the Federal Confidentiality of Alcohol and Drug Abuse Patient Records regulations: The Federal rules restrict any use of the information to criminally investigate or prosecute any alcohol or drug abuse patient.[facility] Reason for Visit (unrecogniz ed section and content) bilateral lower back pain, N ew/Est - 1st visit with physician Reason Comments PT Progress Note Specialty Diagnoses / Procedures Referred By Contaries t Referred To Contact [facility] Diagnoses Superior glenoid labrum lesion of left shoulder, subsequent encounter Procedures PT REHAB FOLLOW UP ORDER THERAPEUTIC EXERCISES RE, EA 15 MIN. PHYSICAL THERAPY EVALUATION HIGH COMPLEX 45 MINS Artie Velez, PT [address] [place] [address] [facility] [address] [address] Referral ID Status Reason Start Date Expiration Date V isits Requested Visits Authorized [id number] Authorized 09/25/2022 09/21/2023 60 60 Reason Comments Physical Therapy Specialty Diagnoses / Procedures Referred By Contaries t Referred To Contact [facility] Diagnoses Superior glenoid labrum lesion of left shoulder, subsequent encounter Procedures PT REHAB FOLLOW UP ORDER THERAPEUTIC EXERCISES RE, EA 15 MIN. Artie Velez, PT [facility] [address] [address] Referral ID Status Reason Start Date Expiration Date Visits Requested Visits Authorized [id number] Pending Review PCP Requested Referral Auto-Generate d Referral 2 12/09/2022 1 1 Reason Comments PT Progress Note Specialty Diagnoses / Procedures Referred By Contac t Referred To Contact Physical Therapy / PHYSICAL THERAPY Diagnoses Low back pain low back pain Procedures NEW RS PT SPINE [place] [address] [place] [phone] Artie Velez, PT Referral ID Status Reason Start Date Expiration Date V isits Requested Visits Authorized [id number] Authorized 09/22/2021 09/21/2022 60 60 Reason Comments Physical Reason Comments PT Eval Reason Comments PT Eval Specialty Diagnoses / Procedures Referred By Contac t Referred To Contact Physical Therapy / PHYSICAL THERAPY Diagnoses Superior glenoid labrum lesion of left shoulder, initial encounter Primary osteoarthritis, left shoulder Impingement syndrome of left shoulder shoulder pain patient will bring order in Procedures PHYSICAL THERAPY EVALUATION HIGH COMPLEX 45 MINS THERAPEUTIC EXERCISES RE, EA 15 MIN. NEW RS PT ORTH NETO [place] Alexys Dumont [address] [place] [address] Kaylee Bean PT Referral ID Status Reason Start Date Expiration Date V isits Requested Visits Authorized [id number] Authorized 09/22/2021 09/21/2022 60 60 Specialty Diagnoses / Procedures Referred By Contac t Referred To Contact [facility] Diagnoses Superior glenoid labrum lesion of left shoulder, subsequent encounter Procedures PT REHAB FOLLOW UP ORDER THERAPEUTIC EXERCISES RE, EA 15 MIN. PHYSICAL THERAPY EVALUATION HIGH COMPLEX 45 MINS Artie Velez, PT [address] [place] [address] [facility] [address] [place] [id number] Reason Comments Physical Therapy PT Progress Note Specialty Diagnoses / Procedures Referred By Contac t Referred To Contact Radiology Diagnoses Other congenital malformations of spine, not associated with scoliosis Procedures MR lumbar spine wo contrast Sonia Chan, DOUBLING MACHINE OPERATOR - NURSING HOME SOCIAL WORKER [address] [facility] [address] [place] [address] Referral ID Status Reason Start Date Expiration Date Visits Re quested Visits Authorized [id number] Closed 02/20/2024 02/19/2025 1 1 Reason Comments Flu Like Symptoms Very bad cough chest congestion wheezing - Entered by patient Cough Chest Congestion Wheezing X4days all symptoms Short Of Breath Care Teams (unrecognized sec tion and content) Parts Representative Relationship Specialty Start Date End Date Kiet Venegsa MD [address] [place] [address] PCP - General Family Practice 05/10/15 Parts Representative Relationship Specialty Start Date End Date Kiet Venegas MD [address] [place] [address] PCP - General Family Practice 05/10/15 Parts Representative Relationship Specialty Start Date End Date Kiet Venegas MD [address] [place] [address] PCP - General Family Practice 05/10/15 Parts Representative Relationship Specialty Start Date End Date Kiet Venegas MD [address] [place] [address] PCP - General Family Practice 05/10/15 Parts Representative Relationship Specialty Start Date End Date Kiet Venegas MD [address] [place] [address] PCP - General Family Medicine 05/10/15 Parts Representative Relationship Specialty Start Date End Date Kiet Venegas MD [address] [place] [address] PCP - General Family Medicine 05/10/15 Parts Representative Relationship Specialty Start Date End Date Kiet Venegas MD [address] [place] [address] PCP - General Family Medicine 05/10/15 Parts Representative Relationship Specialty Start Date End Date Kiet Venegas MD [address] [place] [address] PCP - General Family Medicine 05/10/15 Parts Representative Relationship Specialty Start Date End Date Kiet Venegas MD [address] [place] [address] PCP - General Family Medicine 05/10/15 Parts Representative Relationship Specialty Start Date End Date Kiet Venegas MD [address] [place], [place] [id number] PCP - General Family Medicine 05/10/15 Parts Representative Relationship Specialty Start Date End Date Kiet Venegas MD [address] [place] [address] PCP - General Family Medicine 05/10/15 Janelle Menon DOUBLING MACHINE OPERATOR.NURSING HOME SOCIAL WORKER [address] [place] [address] [facility] 08/30/24 Rita Pedro DOUBLING MACHINE OPERATOR.NURSING HOME SOCIAL WORKER [address] [place] [address] [facility] 08/30/24 Parts Representative Relationship Specialty Start Date End Date Kiet Venegas MD [address] [place] [address] PCP - General Family Medicine 05/10/15 Janelle Menon DOUBLING MACHINE OPERATOR.NURSING HOME SOCIAL WORKER [address] [place] [address] [facility] 08/30/24 Rita Pedro DOUBLING MACHINE OPERATOR.NURSING HOME SOCIAL WORKER [address] [place] [address] [facility] 08/30/24 FOR RECORDS PERTAINING TO PATIENTS WHO ARE OR HAVE BEEN ENROLLED IN A CHEMICAL DEPENDENCY/SUBSTANCEABUSE PROGRAM, SOME INFORMATION MAY BE OMITTED. This clinical summary was aggregated from multiple sources. Caution should be exercised in using it in the provision of clinical care. This summary normalizes information from multiple sources, and as a consequence, information in this document may materially change the coding, format and clinical context of patient data. In addition, data may be omitted in some cases. CLINICAL DECISIONS SHOULD BE BASED ON THE PRIMARY CLINICAL RECORDS. [employer] [facility]. provides no warranty or guarantee of the accuracy or completeness of information in this document.
[2025-06-25 09:47] LABS: Hematocrit 45.9 % (40-54); Hemoglobin 15.6 g/dL (13.0-16.5); Mean Corp Hgb Conc 34.0 g/dL (32-36); Mean Corpuscular Volume 91.4 fL (80-94); Mean Platelet Vol. 10.0 fl (6.2-12.0); Platelet Count 193 K/mm3 (150-450); RBC Distribution Width CV 12.8 % (11.6-14.6); RBC Distribution Width SD 43.0 fl (35.1-43.9); Red Blood Count 5.02 M/mm3 (4.6-6.2); White Blood Count 7.0 K/mm3 (4.4-11.0)
[2025-06-25 11:20] LABS: Cholesterol 187 mg/dL (<=200); Low Density Lipoprotein Calc. 128 mg/dL; Triglycerides 81 mg/dL; Very Low Density Lipoprotein 16 mg/dL (5-40); cholesterol:hdl ratio screen 4.33
[2025-06-25 11:22] LABS: AST(SGOT) 23 U/L (<=37); Alanine Aminotransfer ALT/SGPT 27 U/L (<=46); Albumin, Serum 4.6 g/dL (3.5-5.0); Alkaline Phosphatase 53 U/L (40-129); Anion Gap 12 (5-15); BUN 17 mg/dL (4-19); BUN/Creat Ratio 17.6 RATIO (10-20); Calcium,Total 9.5 mg/dL (7.6-11.0); Carbon Dioxide 22.7 mmol/L (21.0-32.0); Chloride 104 mmol/L (98-108); Globulin 2.4 g/dL (2.2-4.2); Glucose 97 mg/dL (70-99); PSA,Total - Annual Screen 0.50 ng/mL (0.02-4.00); Potassium 4.5 mmol/L (3.3-5.1); Vitamin D,25 Hydroxy 38.3 ng/mL (30-100)
== END | disposition home or self-care (01) ==
PROVIDERS: PCP Internal Medicine; Referring Provider Family Medicine; Visit Provider Family Medicine
DX: Z12.11 Encounter for screening for malignant neoplasm of colon (principal); Z13.220 Encounter for screening for lipoid disorders; Z98.890 Other specified postprocedural states; Z12.5 Encounter for screening for malignant neoplasm of prostate; E66.9 Obesity, unspecified; M54.9 Dorsalgia, unspecified; Z13.1 Encounter for screening for diabetes mellitus
CPT/HCPCS: 36415; 80053; 80061; 82306; 84153; 84443; 85027; G0103

== ENCOUNTER → 2025-08-03 | Outpatient (CLI) | payer BC, SELFPAY | END | disposition home or self-care (01) | LOC: LAB 10:09 | PROVIDERS: PCP Family Medicine | DX: Z13.1 Encounter for screening for diabetes mellitus (principal); E66.9 Obesity, unspecified | CPT/HCPCS: 36415; 83036 ==